=== PATIENT | male | born 1950 | race Caucasian/White ===

== ENCOUNTER 2023-01-20 14:21 | Outpatient (REF) | payer MEDICARE, SELFPAY ==
[2023-01-20 16:43] LABS: Hematocrit 46.6 % (42.0-52.0); Hemoglobin 15.1 g/dl (14.0-18.0); Mean Corpuscular HGB Conc 32.4 g/dl (31.0-36.0); Mean Corpuscular Hemoglobin 29.3 pg (27.0-33.0); Mean Corpuscular Volume 90.5 fL (80.0-98.0); Mean Platelet Volume 10.5 fL (9.4-12.4); Platelet Count 272 X10*3/uL (160-400); Red Blood Count 5.15 X10*6/uL (4.60-5.80); Red Cell Distribution Width 13.2 % (11.0-16.0); White Blood Count 7.6 X10*3/uL (4.8-10.8)
[2023-01-20 16:55] LABS: Appearance Urine Clear; Color Urine Yellow; Glucose Urine UA Negative (Negative); Leukocyte Esterase Urine Negative (Negative); Nitrite Urine Negative (Negative); PH 5.5 (5.0-9.0); Urine Blood Negative (Negative); Urine Ketones Negative (Negative); Urine Protein Trace mg/dL (Neg-Trace)
[2023-01-20 17:05] LABS: Alanine Aminotransferase 21 U/L (0-40); Albumin Level 4.2 g/dL (3.5-5.0); Alkaline Phosphatase 72 U/L (39-117); Anion Gap 12 (12-20); Aspartate Amino Transferase 17 U/L (5-37); Bilirubin Direct 0.2 mg/dL (0.0-0.5); Bilirubin Total 0.7 mg/dL (0.0-1.0); Blood Urea Nitrogen 21 mg/dL (9-16); Calcium 10.2 mg/dL (8.4-10.2); Carbon Dioxide 28 mmol/L (22-29); Chloride 106 mmol/L (96-108); Cholesterol 231 mg/dL; Estimated Glomerular Filt Rate > 60; Glucose Random 88 mg/dL (60-115); HDL Cholesterol 32 mg/dL; LDL Cholesterol Calculated 152 mg/dl; Potassium 4.5 mmol/L (3.3-5.1); Sodium 141 mmol/L (135-145); Total Protein 7.6 g/dL (6.5-8.0); Triglycerides 236 mg/dL
[2023-01-20 17:19] LABS: Thyroid Stimulating Hormone 2.05 uIU/mL (0.32-4.0)
== END 2023-01-20 14:22 | disposition home or self-care (01) ==
LOC: HO.HMGCLDS 14:21
PROVIDERS: Visit Provider Internal Medicine
DX: I10 Essential (primary) hypertension (principal)
CPT/HCPCS: 36415; 80048; 80061; 80076; 81003; 84443; 85027

== ENCOUNTER 2023-02-24 09:00 | Outpatient (AMB) | payer MEDICARE, SELFPAY ==
[2023-02-24 09:06] VITALS: BP 164/90; PULSE 65; RESP 12; TEMP 36.3; O2SAT 96; BMI 34.3
--- NOTE | 2023-02-24 09:06 | A.OFFPC_ITS ---
Vital Signs 02/24/23 09:06 02/24/23 09:30 Height 5 ft 9 in Weight 232 lb 4 oz BMI 34.3 BP 164/90 H 180/100 H Blood Pressure Location Lt brachial Rt brachial Position Sitting Left Lateral Respiration 12 Pulse 65 Pulse Source Pulse Oximeter Temp 97.4 F Temp Source Temporal Artery Scan Pulse Oximetry (%) 96 Oxygen Delivery Method Room Air Intake Visit Reasons: est care high blood pressure Per Dr V Intake Note: Patient needs a script for Olmesartan 25MG. 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 Required: No Accompanied by: Self / Same As Patient Allergies No Known Allergies Allergy (Verified 02/24/23 09:19) Medication List - Last Reconciled 02/24/23 by Piter Thurman CNP olmesartan-hydrochlorothiazide 40-25 mg 1 tab PO DAILY Tobacco use date assessed: 02/24/23 Fall risk assessment: No Falls in past year Last assessed Fall Risk: 02/24/23 Dental Screening Dental Screen Date: 02/24/23 Did you have a dental visit in the last 12 months?: No Did you have a dental problem in the last 6 months where you did not have access to dental care?: No Was dental information given to patient?: Yes HPI HPI Comments History of Present Illness Details 72-year-old male presents to establish care He states that the last time was seen by his previous PCP was 3 years ago He reports PMH significant for HTN He denies acute symptoms today. He was evaluated at the walk-in clinic and [place] on 01/20/2023 for hyperten julio. His blood pressure was 200/100. Labs were ordered. Enalapril was prescribed and was advised to follow-up with a PCP. He notes that Enapril has been ineffective even after he doubles the dose to 20 mg daily. He monitors his BP at home and his SBP have been between 160-180. He reports history of elevated SBP in the 160s. He states that he was on Olmesartan-HCTZ for approximately 4 years. 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 [facility] Medical History Essential hypertension Finger amputee Surgical History H/O hernia repair Social History (Updated 02/24/23 @ 09:16 by Courtney Williamson MA) Household Members: Family Housing: House Patient Tobacco Use Status: Never used Tobacco e-Cigarette/Vaping Use: Never Used service: No Current occupational status: retired Cognitive needs: No Hearing needs: No Vision needs: No Questionnaire PHQ-9 Over the last 2 weeks, how often have you been bothered by any of the following problems? 1. Little interest or pleasure in doing things: not at all 2. Feeling down, depressed, or hopeless: not at all 3. Trouble falling or staying asleep, or sleeping too much: not at all 4. Feeling tired or having little energy: several days 5. Poor appetite or overeating: not at all 6. Feeling bad about yourself - or that you are a failure or have let yourself or your family down: not at all 7. Trouble concentrating on things, such as reading the newspaper or watching television: not at all 8. Moving or speaking so slowly that other people could have noticed. Or the opposite - being so fidgety or restless that you have been moving around a lot more than usual: not at all 9. Thoughts that you would be better off or of hurting yourself in some way: not at all Total score: 1 Depression Screening Interpretation: Negative Source: Developed by Drs. Rick Capone, Kristen Sanchez, Jacky Miller and colleagues, with an educational latrice from [employer]. Thrive Questionnaire Date Thrive assessed: 02/24/23 I am a: Patient What is your living situation today?: I have a steady place to live Within the past 12 months, did the food you bought not last and you didn't have the money to get more?: Never true Within the past 12 months, did you worry whether your food would run out before you got money to buy more?: Never true Do you have trouble paying for medicines?: No Do you have trouble getting transportation to medical appointments?: No Do you have trouble paying your heating and electricity bill?: No Do you have trouble taking care of your child, family member or friend?: No Do you have trouble with day-to-day activities such as bathing, preparing meals, shopping, managing finances, etc.?: No Are you currently unemployed and looking for a job?: No Are you interested in more education?: No Please select the resources that you would like help with: None Currently or been in a relationship where the following occur: no concerns reported AUDIT C Alcohol Use Questionnaire (AUDIT-C) 1. How often do you have a drink containing alcohol?: Never 3. How often do you have six or more drinks on one occasion?: Never Total Score: 0 JOCELYNE-7 AMB Questionnaire JOCELYNE-7 Date JOCELYNE - 7 assessed: 02/24/23 Feeling nervous, anxious, or on edge: 0 = Not at all Not being able to stop or control worryin = Not at all Worrying too much about different things: 0 = Not at all Trouble relaxin = Not at all Being so restless that it is hard to sit still: 1 = Several days Becoming easily annoyed or irritable: 0 = Not at all Feeling afraid as if something awful might happen: 0 = Not at all Total JOCELYNE-7 score (0-4 normal; 5-9 mild; 10-14 moderate; 15-21 severe): 1 Source: Developed by Drs. Rick Capone, Kristen Sanchez, Jacky Miller and colleagues, with an educational latrice from [employer]. Review of Systems Const Details: Const Denies chills, Denies fatigue, Denies fever(s), Denies headache(s) and Denies weakness ENT Denies dizziness and Denies headache(s) Card Denies chest pain, Denies lightheadedness, Denies dyspnea and Denies other (Palpitations) Resp Denies cough, Denies dyspnea, Denies wheezing and Denies other ( shortness of breath) GI Denies abdominal pain, Denies melena, Denies hematochezia, Denies change in bowel habits, Denies dyspepsia and Denies nausea Denies hematuria and Denies dysuria Musc Denies abnormal gait, Denies myalgias, Denies arthralgias, Denies numbness and Denies tingling Skin/Breast Denies rash, Denies unusual bruising and Denies wounds Neuro Denies abnormal gait, Denies dizziness, Denies headache(s), Denies memory loss, Denies numbness, Denies Sensory deficit (Neuro), Denies tingling and Denies weakness Psych Denies anxiety and Denies depression, Denies memory loss Endo Denies fatigue Aller/Immun Denies wheezing Physical exam (Primary Care) Vital Signs: Last Vital Signs Temp 97.4 F 02/24/23 09:06 Pulse 65 02/24/23 09:06 Resp 12 02/24/23 09:06 BP 164/90 H 02/24/23 09:06 Pulse Ox 96 02/24/23 09:06 Oxygen Delivery Method Room Air 02/24/23 09:06 BMI result Body Mass Index 34.3 Tobacco/Smoking Status: Tobacco use Status Patient Tobacco Use Status Never used Tobacco 02/24/23 09:16 Depression Screening Interpretation: Negative Currently or been in a relationship where the following occur: no concerns reported Const Other: General: no acute distress and well developed Nutritional Appearance: well nourished Orientation/consciousness: patient oriented x3 HENMT Head: Yes normocephalic and Yes atraumatic Eyes General: appearance normal, both eyes and all related structures Pupils: Equal, round and reactive pupils present EOM: EOMs intact bilaterally Resp Effort & Inspection: normal respiratory effort Auscultation: clear to auscultation bilaterally Cardio Rate: regular rate Rhythm: regular rhythm Heart sounds: S1 normal heart sound present, S2 normal heart sound present, no gallops, no murmurs and no rubs GI Palpation (GI): No Abdominal aortic bruit present, Soft to palpation, nontender, No hepatosplenomegaly present and No Rebound tenderness present Auscultation: normal bowel sounds General: Yes no CVA tenderness Back/Spine/Pelvis Back: no CVA tenderness Cervical Spine: cervical ROM normal and No Cervical spine tenderness Thoracic/Lumbar Spine: thoraco-lumbar ROM normal, No pain with thoraco-lumbar ROM, No thoracic spinal tenderness and No lumbar spinal tenderness Extrem General: Yes normal to inspection, No edema and No calf tenderness Skin General: warm and dry. Normal skin color. Normal skin turgor Lesions: no lesions Rashes: no rashes Trauma: no lacerations or abrasions Wounds: no wounds Nails: normal Neuro General: patient oriented x3, gait normal and no focal neuro deficit Cranial nerves: Yes Equal, round and reactive pupils present Cognition (Neuro): normal cognition Gait exam (Neuro): Normal gait present Motor exam (neuro): 5/5 motor strength present throughout Sensory Exam: No Sensory deficit (Neuro) Psych Appearance: grossly normal Affect: normal affect Attitude: cooperative Thought process: Normal thought process present Assessment and Plan Assessment & Plan (1) Essential hypertension: Code(s): I10 - Essential (primary) hypertension Plan: His resting blood pressure is 180/100, above goal of less than 140/90. Olmesartan-hydrochlorothiazide ordered. Take as prescribed. Low-sodium diet and routine exercise encouraged Monitor blood pressure daily, record readings, and report blood pressure reading consistently above 140/90 Follow-up for a nurse visit for blood pressure check in 1 week Return in 2 weeks or sooner with concerns or symptoms Verbalized understanding and agreed with treatment plan. (2) Hyperlipidemia: Code(s): E78.5 - Hyperlipidemia, unspecified Plan: Recent blood work reviewed with the patient Total cholesterol, LDL, and triglycerides are elevated. HDL is low Decline medication therapy He notes he will adjust his diet and continue to eat garlic daily to control his cholesterol levels Advised to limit foods high in saturated fat and avoid foods high trans fat Routine exercise encouraged Follow-up with symptoms or concerns Verbalized understanding and agreed with treatment plan. (3) Laboratory tests ordered as part of a complete physical exam (CPE): Code(s): Z00.00 - Encounter for general adult medical examination without abnormal findings Plan: Fasting labs ordered as part of a complete physical exam. Advised to fast for at least 10 hours before getting labs drawn. May drink water Verbalized understanding and agreed with treatment plan. Orders: Orders Glucose Fasting Today I10 - Essential (primary) hypertension, Z00.00 - Encounter for general adult medical examination without abnormal findings PSA, Ultra Sensitive Today Z00.00 - Encounter for general adult medical examination without abnormal findings Medications: New olmesartan-hydrochlorothiazide 20-12.5 mg 1 tab PO DAILY 30 days 30 tabs 3RF Coding Level of Care Code Est Pt Level 4 (49033) Diagnoses Essential hypertension I10 Hyperlipidemia E78.5 Laboratory tests ordered as part of a complete physical exam (CPE) Z00.00 Time Spent (min) 35
[2023-02-24 09:30] VITALS: BP 180/100
== END 2023-02-24 09:55 | disposition home or self-care (01) ==
PROVIDERS: Visit Provider Nurse Practitioner Family
DX: I10 Essential (primary) hypertension (principal); E78.5 Hyperlipidemia, unspecified; Z00.00 Encounter for general adult medical examination without abnormal findings
CPT/HCPCS: 99214

== ENCOUNTER 2023-02-24 09:56 | Outpatient (REF) | payer MEDICARE, SELFPAY ==
[2023-02-24 12:00] LABS: Glucose Fasting 98 mg/dL (60-99)
[2023-03-03 17:03] LABS: PSA, Ultra Sensitive 2.53 ng/mL
== END 2023-02-24 09:57 | disposition home or self-care (01) ==
LOC: HO.WFDLDS 09:56
PROVIDERS: Visit Provider Nurse Practitioner Family
DX: Z00.00 Encounter for general adult medical examination without abnormal findings (principal); Z12.5 Encounter for screening for malignant neoplasm of prostate; I10 Essential (primary) hypertension
CPT/HCPCS: 36415; 82947; 84153

== ENCOUNTER 2023-03-10 07:47 | Outpatient (AMB) | payer MEDICARE, SELFPAY ==
--- NOTE | 2023-03-10 07:55 | A.OFFPC_ITS ---
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 Required: No Accompanied by: Self / Same As Patient Allergies No Known Allergies Allergy (Verified 03/10/23 08:40) Medication List - Last Reconciled 03/10/23 by Piter Thurman CNP olmesartan-hydrochlorothiazide 40-25 mg 1 tab PO DAILY 30 days Tobacco use date assessed: 02/24/23 Fall risk assessment: No Falls in past year Dental Screening Did you have a dental visit in the last 12 months?: No Did you have a dental problem in the last 6 months where you did not have access to dental care?: Yes Was dental information given to patient?: Patient declined HPI HPI Comments History of Present Illness Details 72-year-old male presents for hypertension follow-up. He is on olmesartan-hydrochlorothiazide which was increased to 40 does 25 a week ago. He notes he has been taking the medication as prescribed. He notes that he has not taken his medication this morning. He reports ringing of the the left ear whenever his blood pressure is elevated and reports current symptoms. He denies headache, dizziness, visual disturbances, chest pain, nausea. Review of his BP readings over the past 7 days revealed reading of 150s-160s/70s-90s [facility] Medical History Essential hypertension Finger amputee Surgical History H/O hernia repair Social History Household Members: Family Housing: House e-Cigarette/Vaping Use: Never Used service: No Current occupational status: retired Current occupational exposures/hazards: No Cognitive needs: No Hearing needs: Yes Vision needs: No Questionnaire PHQ-9 Over the last 2 weeks, how often have you been bothered by any of the following problems? 1. Little interest or pleasure in doing things: not at all 2. Feeling down, depressed, or hopeless: not at all 3. Trouble falling or staying asleep, or sleeping too much: not at all 4. Feeling tired or having little energy: not at all 5. Poor appetite or overeating: not at all 6. Feeling bad about yourself - or that you are a failure or have let yourself or your family down: not at all 7. Trouble concentrating on things, such as reading the newspaper or watching television: not at all 8. Moving or speaking so slowly that other people could have noticed. Or the opposite - being so fidgety or restless that you have been moving around a lot more than usual: not at all 9. Thoughts that you would be better off or of hurting yourself in some way: not at all Total score: 0 Depression Screening Interpretation: Negative Source: Developed by Drs. Rick Capone, Jacky Mahmood and colleagues, with an educational latrice from [employer]. Thrive Questionnaire Date Thrive assessed: 02/24/23 AUDIT C Alcohol Use Questionnaire (AUDIT-C) 1. How often do you have a drink containing alcohol?: Never Total Score: 0 Score Reviewed/Action Taken: No JOCELYNE-7 AMB Questionnaire JOCELYNE-7 Date JOCELYNE - 7 assessed: 02/24/23 Source: Developed by Drs. Rick Capone, Kristen Sanchez, Jacky Miller and colleagues, with an educational latrice from [employer]. Review of Systems Const Details: Const Denies chills, Denies fatigue, Denies fever(s), Denies headache(s) and Denies weakness ENT Denies dizziness and Denies headache(s) Card Denies chest pain, Denies lightheadedness, Denies dyspnea and Denies other (Palpitations) Resp Denies cough, Denies dyspnea, Denies wheezing and Denies other ( shortness of breath) GI Denies abdominal pain, Denies melena, Denies hematochezia, Denies change in bowel habits, Denies dyspepsia and Denies nausea Denies hematuria and Denies dysuria Musc Denies abnormal gait, Denies myalgias, Denies arthralgias, Denies numbness and Denies tingling Skin/Breast Denies rash, Denies unusual bruising and Denies wounds Neuro Denies abnormal gait, Denies dizziness, Denies headache(s), Denies memory loss, Denies numbness, Denies Sensory deficit (Neuro), Denies tingling and Denies weakness Psych Denies anxiety and Denies depression Endo Denies fatigue Aller/Immun Denies wheezing Physical exam (Primary Care) Vital Signs: Last Vital Signs Temp 96.6 F L 03/10/23 08:06 Pulse 70 03/10/23 08:52 Resp 16 03/10/23 08:06 BP 170/80 H 03/10/23 08:52 Pulse Ox 96 03/10/23 08:06 Oxygen Delivery Method Room Air 03/10/23 08:06 Tobacco/Smoking Status: Tobacco use Status Tobacco use date assessed 02/24/23 03/10/23 07:57 Patient Tobacco Use Status 03/10/23 08:20 e-Cigarette/Vaping Use Never Used 03/10/23 07:57 PHQ-9: PHQ-9 Score PHQ-9: Total score 0 03/11/23 09:47 Depression Screening Interpretation: Negative Thrive Assessment: Date of Thrive Assessment Date Thrive assessed 02/24/23 03/10/23 07:57 Const Other: General: no acute distress and well developed Nutritional Appearance: well nourished Orientation/consciousness: patient oriented x3 HENMT Head: Yes normocephalic and Yes atraumatic Eyes General: appearance normal, both eyes and all related structures Pupils: Equal, round and reactive pupils present EOM: EOMs intact bilaterally Resp Effort & Inspection: normal respiratory effort Auscultation: clear to auscultation bilaterally Cardio Rate: regular rate Rhythm: Irregularly irregular rhythm Heart sounds: S1 normal heart sound present, S2 normal heart sound present, no gallops, no murmurs and no rubs GI Palpation (GI): No Abdominal aortic bruit present, Soft to palpation, nontender, No hepatosplenomegaly present and No Rebound tenderness present Auscultation: normal bowel sounds General: Yes no CVA tenderness Back/Spine/Pelvis Back: no CVA tenderness Cervical Spine: cervical ROM normal and No Cervical spine tenderness Thoracic/Lumbar Spine: thoraco-lumbar ROM normal, No pain with thoraco-lumbar ROM, No thoracic spinal tenderness and No lumbar spinal tenderness Extrem General: Yes normal to inspection, No edema and No calf tenderness Skin General: warm and dry. Normal skin color. Normal skin turgor Lesions: no lesions Rashes: no rashes Trauma: no lacerations or abrasions Wounds: no wounds Nails: normal Neuro General: patient oriented x3, gait normal and CN's no focal neuro deficit Cranial nerves: Yes Equal, round and reactive pupils present Cognition (Neuro): normal cognition Gait exam (Neuro): Normal gait present Sensory Exam: No Sensory deficit (Neuro) Psych Affect: normal affect Assessment and Plan Assessment & Plan (1) Essential hypertension: Code(s): I10 - Essential (primary) hypertension Plan: Initial BP was 202/98 Resting BP is 170/80 Heart rate irregularly irregular quality assurance monitor final is currently nonfunctional Patient advised to go to the main hospital in [place] to get EKG done He verbalized understanding and agreed with the plan. Orders: Orders ECG 12 lead EKG 03/10/23 I10 - Essential (primary) hypertension Coding Level of Care Code Est Pt Level 3 (51366) Diagnoses Essential hypertension I10 Time Spent (min) 25
[2023-03-10 08:06] VITALS: BP 208/98; PULSE 46; RESP 16; TEMP 35.9; O2SAT 96
[2023-03-10 08:22] VITALS: BP 202/98
[2023-03-10 08:52] VITALS: BP 170/80; PULSE 70
== END 2023-03-10 10:16 | disposition home or self-care (01) ==
PROVIDERS: Visit Provider Nurse Practitioner Family
DX: I10 Essential (primary) hypertension (principal)
CPT/HCPCS: 99213

== ENCOUNTER 2023-03-10 11:43 | Emergency (ER) | payer MEDICARE, SELFPAY ==
--- NOTE | ~2023-03-10 | XR_ITS ---
EXAMINATION: XR CHEST CLINICAL INFORMATION: Shortness of breath, left-sided chest pain. COMPARISON: None available. TECHNIQUE: 2 views of the chest were obtained. FINDINGS: No significant abnormality is noted involving the heart, lungs, mediastinum, bony thorax or soft tissues. XR/XR chest 2V IMPRESSION: No acute cardiopulmonary process.
--- NOTE | 2023-03-10 11:44 | ECG_ITS ---
Test Reason : irregular heart beat Blood Pressure : / mmHG Vent. Rate : 071 BPM Atrial Rate : 071 BPM P-R Int : 166 ms QRS Dur : 102 ms QT Int : 404 ms P-R-T Axes : 037 -19 153 degrees QTc Int : 439 ms Sinus rhythm with Premature atrial complexes Left ventricular hypertrophy with repolarization abnormality ( R in aVL , Billy product ) Abnormal ECG No previous ECGs available Referred By: Brittnee Watkins Electronically Signed By:JOSE CASTRO
[2023-03-10 12:24] VITALS: BP 168/73; PULSE 47; RESP 18; TEMP 36.4; O2SAT 93; BMI 34.9
--- NOTE | 2023-03-10 12:27 | ED_ITS ---
HPI - Arrhythmia/Palpitations General Chief Complaint: Arrhythmia/Palpitations Stated Complaint: Irregular heartbeat Time Seen by Provider: 03/10/23 14:07 Source: patient Mode of arrival: ambulatory History of Present Illness HPI narrative: 72-year-old male presents with palpitations, no history of atrial fibrillation and states that 2 weeks ago he experienced chest pressure that is completely resolved today, he was in the office of his primary care provider who noted what was reported as an irregular rhythm. Patient denies any shortness of breath, headache, dizziness, diaphoresis, nausea, denies any speech changes or gait instability and currently denies any chest pain. Patient states that he took his medication today and that his blood pressure has been elevated and endorses a systolic of over 200. Related Data Previous Rx's Medication Instructions Recorded olmesartan 40 1 tab PO DAILY 30 days #30 tabs 03/03/23 mg-hydrochlorothiazide 25 mg tablet Allergies Allergy/AdvReac Type Severity Reaction Status Date / Time No Known Allergies Allergy Verified 03/10/23 08:40 Review of Systems Review of Systems: Pertinent positives and negatives as stated in HPI [facility] Past Medical History Source: nursing notes reviewed Medical History Essential hypertension Finger amputee Surgical History H/O hernia repair Social History Social History Household Members: Family Housing: House Smoked in Last 30 Days: No e-Cigarette/Vaping Use: Never Used Use of substances other than those prescribed or required for medical reasons: No Advance Directives: Yes Advance Directives Information Provided: Yes Advance Directives on File: No service: No Current occupational status: retired Current occupational exposures/hazards: No Cognitive needs: No Hearing needs: Yes Vision needs: No Physical Exam Vital Signs: Vital Signs: Last Vital Signs Temp 98.3 F 03/10/23 18:14 Pulse 73 03/10/23 18:14 Resp 17 03/10/23 18:14 BP 168/83 H 03/10/23 18:14 Pulse Ox 95 03/10/23 18:14 O2 Del Method Room Air 03/10/23 18:14 BMI result Body Mass Index 34.9 VITAL SIGNS: Reviewed. GENERAL: Well developed, well nourished, in no acute distress. HEAD: Normocephalic/atraumatic EYES: PERRLA, EOMI EARS: Ext canals without abnormality NOSE: Nares patent bilateral OROPHARYNX: no oral lesions noted, posterior pharynx clear NECK: Supple, no adenopathy LUNGS: Bibasilar rales, no tachypnea, good inspiratory effort. SpO2<93> CARDIOVASCULAR: Regular rate and rhythm without noted murmurs, no JVD or lower extremity edema. ABDOMEN: Soft, non-tender, non-distended with bowel sounds. MUSCULOSKELETAL: No tenderness, deformities, or effusions noted on gross inspection. EXTREMITIES: No cyanosis, clubbing or edema. SKIN: Inspection of the skin reveals no rashes NEUROLOGIC: Alert and oriented x 4. Strength and sensation to light touch were grossly intact x 4. Course Course Course Narrative: RME - 72 yo male with history of HTN, HLD who presents to the ER for evaluation intermittent left sided chest tightness for the last 2 weeks along with elevated HR into the 140s and BP 240s systolic at home. compliant with 2 BP meds at home. Feels palpitations and skipped beats. No etoh or drugs. Plan: Medications Administered Discontinued Medications Generic Name Dose Route Start Last Admin Trade Name Freq PRN Reason Stop Dose Admin Furosemide 20 mg 03/10/23 15:33 03/10/23 15:41 Furosemide 20 Mg/2 Ml Vial IVPUSH 03/10/23 15:34 20 mg ONCE ONE Administration Protocol Hydralazine HCl 5 mg 03/10/23 14:20 03/10/23 15:23 Hydralazine Hcl 20 Mg/Ml Vial IVPUSH 03/10/23 14:21 5 mg ONCE ONE Administration Protocol Medical Decision Making Medical Decision Making MDM Narrative: 72-year-old male with history and clinical presentation, DDX: New onset atrial fibrillation, CHF, pneumonia, ACS, hypertensive crisis. Patient is otherwise completely asymptomatic for any neurologic symptoms and denies any chest pain or palpitations or chest tightness. I reviewed all investigations and hematologic indices are without leukocytosis or left shift 10 there is no evidence of anemia or thrombocytopenia. Chemistry indices demonstrate CKD without electrolyte abnormalities detectable troponins that are flat on serial examination, BNP is also elevated both of these together I suspect this secondary to significant LVH in conjunction with EKG findings. I suspect the patient needs to have an adjustment on his blood pressure medication follow-up with cardiology for stress testing. He is otherwise discharged home and informed to follow-up with his primary care provider by calling the office 1st thing in the morning and requesting blood pressure medication adjustment. Differential Diagnosis Differential Diagnoses: The differential diagnosis associated with the presentation includes Please see the discussion above Admission/Observation Consideration of admission/observation: Escalation of care including admission/observation considered Please see discussion above Lab Data MDM Lab Attestation statement: I reviewed the patient's lab results. Please see discussion above 03/10/23 12:39 03/10/23 12:39 Labs: Lab Results 03/10/23 03/10/23 03/10/23 Range/Units 12:39 12:39 12:39 WBC 6.0 (4.8-10.8) X10*3/uL RBC 5.38 (4.60-5.80) X10*6/uL Hgb 15.8 (14.0-18.0) g/dl Hct 47.1 (42.0-52.0) % MCV 87.5 (80.0-98.0) fL MCH 29.4 (27.0-33.0) pg MCHC 33.5 (31.0-36.0) g/dl RDW 13.4 (11.0-16.0) % Plt Count 224 (160-400) X10*3/uL MPV 9.8 (9.4-12.4) fL Immature Gran % (Auto) 0.2 (0.0-0.4) % Neut % (Auto) 71.6 (45-73) % Lymph % (Auto) 17.1 L (20-40) % [place] % (Auto) 8.3 (2-11) % Eos % (Auto) 2.3 (0-4) % Baso % (Auto) 0.5 (0-2) % Lymph # (Auto) 1.0 L (1.2-4.9) X10*3/uL [place] # (Auto) 0.5 (0.1-1.2) X10*3/uL Eos # (Auto) 0.1 (0.0-0.4) X10*3/uL Baso # (Auto) 0.0 (0.0-0.2) X10*3/uL Abs Immat Gran (auto) 0.01 (0.00-0.03) X10*3/uL Absolute Neuts (auto) 4.3 (2.0-8.3) x10*3/uL Absolute Nucleated RBC 0.000 (0.0-0.012) X10*3/uL Nucleated RBC % (auto) 0.0 (0.0-0.2) /100WBC Sodium 141 (135-145) mmol/L Potassium 4.1 (3.3-5.1) mmol/L Chloride 106 (96-108) mmol/L Carbon Dioxide 23 (22-29) mmol/L Anion Gap 16 (12-20) BUN 22 H (9-16) mg/dL Creatinine 1.24 (0.5-1.4) mg/dL Estim Creat Clear Calc 67.9 Estimated GFR 57 Random Glucose 116 H (60-115) mg/dL Calcium 10.0 (8.4-10.2) mg/dL Magnesium 2.2 (1.6-2.6) mg/dL Total Bilirubin 0.7 (0.0-1.0) mg/dL Direct Bilirubin 0.2 (0.0-0.5) mg/dL AST 16 (5-37) U/L ALT 17 (0-40) U/L Alkaline Phosphatase 70 (39-117) U/L Troponin I High Sens 19.1 (<3.5-35.0) ng/L B-Natriuretic Peptide (<100) pg/mL Total Protein 7.4 (6.5-8.0) g/dL Albumin 4.1 (3.5-5.0) g/dL TSH (0.32-4.0) uIU/mL 03/10/23 03/10/23 03/10/23 Range/Units 12:39 12:39 16:09 WBC (4.8-10.8) X10*3/uL RBC (4.60-5.80) X10*6/uL Hgb (14.0-18.0) g/dl Hct (42.0-52.0) % MCV (80.0-98.0) fL MCH (27.0-33.0) pg MCHC (31.0-36.0) g/dl RDW (11.0-16.0) % Plt Count (160-400) X10*3/uL MPV (9.4-12.4) fL Immature Gran % (Auto) (0.0-0.4) % Neut % (Auto) (45-73) % Lymph % (Auto) (20-40) % [place] % (Auto) (2-11) % Eos % (Auto) (0-4) % Baso % (Auto) (0-2) % Lymph # (Auto) (1.2-4.9) X10*3/uL [place] # (Auto) (0.1-1.2) X10*3/uL Eos # (Auto) (0.0-0.4) X10*3/uL Baso # (Auto) (0.0-0.2) X10*3/uL Abs Immat Gran (auto) (0.00-0.03) X10*3/uL Absolute Neuts (auto) (2.0-8.3) x10*3/uL Absolute Nucleated RBC (0.0-0.012) X10*3/uL Nucleated RBC % (auto) (0.0-0.2) /100WBC Sodium (135-145) mmol/L Potassium (3.3-5.1) mmol/L Chloride (96-108) mmol/L Carbon Dioxide (22-29) mmol/L Anion Gap (12-20) BUN (9-16) mg/dL Creatinine (0.5-1.4) mg/dL Estim Creat Clear Calc Estimated GFR Random Glucose (60-115) mg/dL Calcium (8.4-10.2) mg/dL Magnesium (1.6-2.6) mg/dL Total Bilirubin (0.0-1.0) mg/dL Direct Bilirubin (0.0-0.5) mg/dL AST (5-37) U/L ALT (0-40) U/L Alkaline Phosphatase (39-117) U/L Troponin I High Sens 21.1 (<3.5-35.0) ng/L B-Natriuretic Peptide 246 H (<100) pg/mL Total Protein (6.5-8.0) g/dL Albumin (3.5-5.0) g/dL TSH 1.42 (0.32-4.0) uIU/mL 03/10/23 Range/Units 18:19 WBC (4.8-10.8) X10*3/uL RBC (4.60-5.80) X10*6/uL Hgb (14.0-18.0) g/dl Hct (42.0-52.0) % MCV (80.0-98.0) fL MCH (27.0-33.0) pg MCHC (31.0-36.0) g/dl RDW (11.0-16.0) % Plt Count (160-400) X10*3/uL MPV (9.4-12.4) fL Immature Gran % (Auto) (0.0-0.4) % Neut % (Auto) (45-73) % Lymph % (Auto) (20-40) % [place] % (Auto) (2-11) % Eos % (Auto) (0-4) % Baso % (Auto) (0-2) % Lymph # (Auto) (1.2-4.9) X10*3/uL [place] # (Auto) (0.1-1.2) X10*3/uL Eos # (Auto) (0.0-0.4) X10*3/uL Baso # (Auto) (0.0-0.2) X10*3/uL Abs Immat Gran (auto) (0.00-0.03) X10*3/uL Absolute Neuts (auto) (2.0-8.3) x10*3/uL Absolute Nucleated RBC (0.0-0.012) X10*3/uL Nucleated RBC % (auto) (0.0-0.2) /100WBC Sodium (135-145) mmol/L Potassium (3.3-5.1) mmol/L Chloride (96-108) mmol/L Carbon Dioxide (22-29) mmol/L Anion Gap (12-20) BUN (9-16) mg/dL Creatinine (0.5-1.4) mg/dL Estim Creat Clear Calc Estimated GFR Random Glucose (60-115) mg/dL Calcium (8.4-10.2) mg/dL Magnesium (1.6-2.6) mg/dL Total Bilirubin (0.0-1.0) mg/dL Direct Bilirubin (0.0-0.5) mg/dL AST (5-37) U/L ALT (0-40) U/L Alkaline Phosphatase (39-117) U/L Troponin I High Sens (<3.5-35.0) ng/L B-Natriuretic Peptide 232 H (<100) pg/mL Total Protein (6.5-8.0) g/dL Albumin (3.5-5.0) g/dL TSH (0.32-4.0) uIU/mL Independent Interpretation I performed an independent interpretation of an: EKG Interpretation: Sinus rhythm with PACs, HR-71, no STEMI, but significant repolarization abnormality likely secondary to hypertension but there is no EKG for comparison. Radiology Impression Discussion of test interpretation with radiology: I have reviewed the radiologist's reading. Radiologist Impression: No pneumonia, otherwise my interpretation is in agreement with radiology's impression. External Record Review External record reviewed: Outpatient record and Prior outpatient labs Chronic Conditions Patient?s care impacted by: Hypertension Critical Care Time Critical Care Time Critical Care Time: Yes Total Critical Care Time: 30 Attestation: I personally attest to this time spent taking care of the patient. Discharge Plan Discharge Clinical Impression: Essential hypertension Patient Disposition: Home, Self-Care Instructions: DASH Eating Plan (ED), Low-Sodium Diet (ED), Hypertension (ED) Additional Instructions: 1. Resume all home medications as prescribed. 2. Please call the office of your primary care provider in the morning and let them know that you may need blood pressure medication adjustment. 3. I have provided you with a referral for Cardiology please call the office in the morning to set up an appointment for re-evaluation and testing. Return to the ER for any worsening symptoms. Prescriptions: No Action olmesartan-hydrochlorothiazide 40-25 mg tablet 1 tab PO DAILY 30 Days Qty: 30 3RF Referrals: Jm Fraser MD [Physician] - Piter Thurman CNP [Nurse Practitioner] -
[2023-03-10 12:45] LABS: MANUAL DIFF FLAG NO
[2023-03-10 12:47] LABS: Basophils Percent Auto 0.5 % (0-2); Eosinophils Absolute Auto 0.1 X10*3/uL (0.0-0.4); Eosinophils Percent Auto 2.3 % (0-4); Hematocrit 47.1 % (42.0-52.0); Hemoglobin 15.8 g/dl (14.0-18.0); Imm Gran Abs Auto 0.01 X10*3/uL (0.00-0.03); Imm Gran Pct Auto 0.2 % (0.0-0.4); Lymphocytes Percent Auto 17.1 % (20-40); Mean Corpuscular HGB Conc 33.5 g/dl (31.0-36.0); Mean Corpuscular Hemoglobin 29.4 pg (27.0-33.0); Mean Corpuscular Volume 87.5 fL (80.0-98.0); Mean Platelet Volume 9.8 fL (9.4-12.4); Monocytes Absolute Auto 0.5 X10*3/uL (0.1-1.2); Monocytes Percent Auto 8.3 % (2-11); Neutrophils Absolute Auto 4.3 x10*3/uL (2.0-8.3); Neutrophils Percent Auto 71.6 % (45-73); Platelet Count 224 X10*3/uL (160-400); Red Blood Count 5.38 X10*6/uL (4.60-5.80); Red Cell Distribution Width 13.4 % (11.0-16.0)
[2023-03-10 13:04] LABS: Alanine Aminotransferase 17 U/L (0-40); Albumin Level 4.1 g/dL (3.5-5.0); Alkaline Phosphatase 70 U/L (39-117); Anion Gap 16 (12-20); Aspartate Amino Transferase 16 U/L (5-37); Bilirubin Direct 0.2 mg/dL (0.0-0.5); Bilirubin Total 0.7 mg/dL (0.0-1.0); Blood Urea Nitrogen 22 mg/dL (9-16); Carbon Dioxide 23 mmol/L (22-29); Chloride 106 mmol/L (96-108); Creatinine Clr Calc Pharmacy 67.9; Estimated Glomerular Filt Rate 57; Glucose Random 116 mg/dL (60-115); Magnesium 2.2 mg/dL (1.6-2.6); Potassium 4.1 mmol/L (3.3-5.1); Sodium 141 mmol/L (135-145); Total Protein 7.4 g/dL (6.5-8.0)
[2023-03-10 13:11] LABS: Troponin-I High Sensitivity 19.1 ng/L (<3.5-35.0)
[2023-03-10 13:18] LABS: B Type Natriuretic Peptide 246 pg/mL (<100)
[2023-03-10 13:25] LABS: TSH reflex Free T4 1.42 uIU/mL (0.32-4.0)
[2023-03-10] MEDS: hydrALAZINE HCl 20 MG/ML VIAL 5 MG IVPUSH (15:23)
[2023-03-10] MEDS: Furosemide 20 MG/2 ML VIAL IVPUSH (15:41)
[2023-03-10 16:25] VITALS: BP 155/76; PULSE 77; RESP 18; TEMP 36.4; O2SAT 93
[2023-03-10 16:40] LABS: Troponin-I High Sensitivity 21.1 ng/L (<3.5-35.0)
[2023-03-10 18:14] VITALS: BP 168/83; PULSE 73; RESP 17; TEMP 36.8; O2SAT 95
[2023-03-10 18:44] LABS: B Type Natriuretic Peptide 232 pg/mL (<100)
[2023-03-10 19:16] VITALS: BP 143/69
== END 2023-03-10 19:15 | disposition home or self-care (01) ==
PROVIDERS: Physician Assistant; Emergency Provider Student in an Organized Health Care Education/Training Program
DX: I10 Essential (primary) hypertension (principal); Z79.899 Other long term (current) drug therapy
CPT/HCPCS: 36415; 71046; 80048; 80076; 83735; 83880; 84443; 84484; 85025; 93005; 96374; 96375; 99284; 99285; J1940

== ENCOUNTER → 2023-03-10 11:44 | Outpatient (BNV) | payer MEDICARE, SELFPAY | PROVIDERS: Emergency Provider Student in an Organized Health Care Education/Training Program; Visit Provider Internal Medicine | DX: I49.1 Atrial premature depolarization (principal); R94.31 Abnormal electrocardiogram [ECG] [EKG] | CPT/HCPCS: 93010 ==

== ENCOUNTER 2023-03-24 09:48 | Outpatient (AMB) | payer MEDICARE, SELFPAY ==
[2023-03-24 10:06] VITALS: BP 150/78; PULSE 62; RESP 12; TEMP 36.6; O2SAT 96; BMI 33.5
--- NOTE | 2023-03-24 10:06 | A.OFFPC_ITS ---
Vital Signs 03/24/23 10:06 Height 5 ft 10 in Weight 233 lb 4 oz BMI 33.5 BP 150/78 H Blood Pressure Location Lt brachial Position Sitting Respiration 12 Pulse 62 Pulse Source Pulse Oximeter Temp 97.9 F Temp Source Temporal Artery Scan Pulse Oximetry (%) 96 Oxygen Delivery Method Room Air Intake Visit Reasons: f/u HTN Intake Note: Patient states that since he has been taking his blood pressure pills he has been having either numbing or tingling sensations on his skin all over for a couple minutes. Patient also states that he has been itching as well. Route Specialist Required: No Accompanied by: Self / Same As Patient Allergies No Known Allergies Allergy (Verified 03/24/23 10:48) Medication List - Last Reconciled 03/24/23 by Piter Thurman CNP olmesartan-hydrochlorothiazide 40-25 mg 1 tab PO DAILY 30 days Tobacco use date assessed: 02/24/23 Fall risk assessment: No Falls in past year Last assessed Fall Risk: 03/24/23 Dental Screening Dental Screen Date: 03/24/23 Did you have a dental visit in the last 12 months?: No Did you have a dental problem in the last 6 months where you did not have access to dental care?: No Was dental information given to patient?: Patient has dentist HPI HPI Comments History of Present Illness Details 72-year-old male presents for hypertension follow-up.He is on olmesartan-hydrochlorothiazide which was increased to 40 does 25 a week ago.? He notes he has been taking the medication as prescribed. He admits to maintaining a low sodium diet. He denies headache, dizziness, visual disturbances, chest pain, nausea. He notes his home SBP readings are between 140-160. No acute symptoms at this time. [facility] Medical History Essential hypertension Finger amputee Surgical History (Updated 03/24/23 @ 10:14 by Courtney Williamson MA) H/O hernia repair History of amputation of finger of both hands Social History Household Members: Family Housing: House Patient Tobacco Use Status: Never used Tobacco e-Cigarette/Vaping Use: Never Used service: No Current occupational status: retired Current occupational exposures/hazards: No Cognitive needs: No Hearing needs: No Vision needs: No Questionnaire Thrive Questionnaire Date Thrive assessed: 02/24/23 JOCELYNE-7 AMB Questionnaire JOCELYNE-7 Date JOCELYNE - 7 assessed: 02/24/23 Source: Developed by Drs. Rick Capone, Kristen Sanchez, Jacky Miller and colleagues, with an educational latrice from [employer]. Review of Systems Const Details: Const Denies chills, Denies fatigue, Denies fever(s), Denies headache(s) and Denies weakness ENT Denies dizziness and Denies headache(s) Card Denies chest pain, Denies lightheadedness, Denies dyspnea and Denies other (Palpitations) Resp Denies cough, Denies dyspnea, Denies wheezing and Denies other ( shortness of breath) GI Denies abdominal pain, Denies melena, Denies hematochezia, Denies change in bowel habits, Denies dyspepsia and Denies nausea Denies hematuria and Denies dysuria Musc Denies abnormal gait, Denies myalgias, Denies arthralgias, Denies numbness and Denies tingling Skin/Breast Denies rash, Denies unusual bruising and Denies wounds Neuro Denies abnormal gait, Denies dizziness, Denies headache(s), Denies memory loss, Denies numbness, Denies Sensory deficit (Neuro), Denies tingling and Denies weakness Psych Denies anxiety, Denies depression, Denies memory loss Endo Denies cold intolerance, Denies fatigue, Denies heat intolerance, Denies polydipsia and Denies polyuria Aller/Immun Denies wheezing Physical exam (Primary Care) Vital Signs: Last Vital Signs Temp 97.9 F 03/24/23 10:06 Pulse 62 03/24/23 10:06 Resp 12 03/24/23 10:06 BP 150/78 H 03/24/23 10:06 Pulse Ox 96 03/24/23 10:06 Oxygen Delivery Method Room Air 03/24/23 10:06 BMI result Body Mass Index 33.5 Tobacco/Smoking Status: Tobacco use Status Tobacco use date assessed 02/24/23 03/24/23 10:14 Patient Tobacco Use Status Never used Tobacco 03/24/23 10:14 e-Cigarette/Vaping Use Never Used 03/24/23 10:14 Thrive Assessment: Date of Thrive Assessment Date Thrive assessed 02/24/23 03/24/23 10:14 Const Other: General: no acute distress and well developed Nutritional Appearance: well nourished Orientation/consciousness: patient oriented x3 [facility] Head: Yes normocephalic and Yes atraumatic Eyes General: appearance normal, both eyes and all related structures Pupils: Equal, round and reactive pupils present EOM: EOMs intact bilaterally Resp Effort & Inspection: normal respiratory effort Auscultation: clear to auscultation bilaterally Cardio Rate: regular rate Rhythm: regular rhythm Heart sounds: S1 normal heart sound present, S2 normal heart sound present, no gallops, no murmurs and no rubs GI Palpation (GI): No Abdominal aortic bruit present, Soft to palpation, nontender, No hepatosplenomegaly present and No Rebound tenderness present Auscultation: normal bowel sounds General: Yes no CVA tenderness Back/Spine/Pelvis Back: no CVA tenderness Cervical Spine: cervical ROM normal and No Cervical spine tenderness Thoracic/Lumbar Spine: thoraco-lumbar ROM normal, No pain with thoraco-lumbar ROM, No thoracic spinal tenderness and No lumbar spinal tenderness Extrem General: Yes normal to inspection, No edema and No calf tenderness Skin General: warm and dry. Normal skin color. Normal skin turgor Lesions: no lesions Rashes: no rashes Trauma: no lacerations or abrasions Wounds: no wounds Nails: normal Neuro General: patient oriented x3, gait normal and no focal neuro deficit Cranial nerves: Yes Equal, round and reactive pupils present Cognition (Neuro): normal cognition Gait exam (Neuro): Normal gait present Sensory Exam: No Sensory deficit (Neuro) Psych Appearance: grossly normal Affect: normal affect Attitude: cooperative Thought process: Normal thought process present Assessment and Plan Assessment & Plan (1) Essential hypertension: Code(s): I10 - Essential (primary) hypertension Plan: His blood pressure is 150/78, above goal of 140/90 Amlodipine ordered. Take as prescribed Continue to take olmesartan-hydrochlorothiazide as prescribed Follow-up in 1 week Return sooner with symptoms or concerns Verbalized understanding and agreed with treatment plan. Medications: New amlodipine 2.5 mg PO DAILY 30 days 30 tabs 3RF Coding Level of Care Code Est Pt Level 3 (48646) Diagnoses Essential hypertension I10 Time Spent (min) 25
== END 2023-03-24 13:35 | disposition home or self-care (01) ==
PROVIDERS: Visit Provider Nurse Practitioner Family
DX: I10 Essential (primary) hypertension (principal)
CPT/HCPCS: 99213

== ENCOUNTER 2023-03-31 10:18 | Outpatient (AMB) | payer MEDICARE, SELFPAY ==
[2023-03-31 10:26] VITALS: BP 148/90; PULSE 64; RESP 12; TEMP 36.6; O2SAT 97; BMI 33.6
--- NOTE | 2023-03-31 10:26 | A.OFFPC_ITS ---
Vital Signs 03/31/23 10:26 Height 5 ft 10 in Weight 234 lb 8 oz BMI 33.6 BP 148/90 H Blood Pressure Location Lt brachial Position Sitting Respiration 12 Pulse 64 Pulse Source Pulse Oximeter Temp 97.8 F Temp Source Temporal Artery Scan Pulse Oximetry (%) 97 Oxygen Delivery Method Room Air Intake Visit Reasons: follow up HTN Intake Note: Patient states that he stopped taking the Olmesartan due to it causing patient having headaches in the back of his head. Patient states that once he stopped taking the Olmesartan that the headaches in back of his head stopped. 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 He is on olmesartan-hydrochlorothiazide 40-25 mg daily and amlodipine 2.5 mg daily. Amlodipine was added to his treatment regimen a week ago. He notes he was taking his medications as prescribed until 3 days ago when he experienced a headache and started taking amlodipine 5 mg daily and have not been taking olmesartan-hydrochlorothiazide. He notes he has not taken his medications this morning; he usually takes them in the afternoon. He admits to maintaining a low sodium diet. He denies headache, dizziness, visual disturbances, chest pain, nausea. He notes his home SBP readings are between 150 - 160. No acute symptoms at this time. He notes he has an appointment to schedule with [facility] cardiology next week. He was evaluated at [facility] ED on 03/10/2023 for irregular heart rhythm. Review of ED documentation: 72-year-old male with history and clinical presentation, DDX:? New onset atrial fibrillation, CHF, pneumonia, ACS, hypertensive crisis.? Patient is otherwise completely asymptomatic for any neurologic symptoms and denies any chest pain or palpitations or chest tightness. I reviewed all investigations and hematologic indices are without leukocytosis or left shift 10 there is no evidence of anemia or thrombocytopenia.? Chemistry indices demonstrate CKD without electrolyte abnormalities detectable troponins that are flat on serial examination, BNP is also elevated both of these together I suspect this secondary to significant LVH in conjunction with EKG findings.? I suspect the patient needs to have an adjustment on his blood pressure medication follow-up with cardiology for stress testing.? He is otherwise discharged home and informed to follow-up with his primary care provider by calling the office 1st thing in the morning and requesting blood pressure medication adjustment. EKG revealed Sinus rhythm with PACs, HR-71, no STEMI, but significant repolarization abnormality likely secondary to hypertension but there is no EKG for comparison. She was referred to [facility] Cardiology. [facility] Medical History Essential hypertension Finger amputee Surgical History (Updated 03/24/23 @ 10:14 by Courtney Williamson MA) H/O hernia repair History of amputation of finger of both hands Social History Household Members: Family Housing: House Patient Tobacco Use Status: Never used Tobacco e-Cigarette/Vaping Use: Never Used service: No Current occupational status: retired Current occupational exposures/hazards: No Cognitive needs: No Hearing needs: No Vision needs: No Questionnaire Thrive Questionnaire Date Thrive assessed: 02/24/23 JOCELYNE-7 AMB Questionnaire JOCELYNE-7 Date JOCELYNE - 7 assessed: 02/24/23 Source: Developed by Drs. Rick Capone, Kristen Sanchez, Jacky Miller and colleagues, with an educational latrice from [employer]. Review of Systems Const Details: Const Denies chills, Denies fatigue, Denies fever(s), Denies headache(s) and Denies weakness ENT Denies dizziness and Denies headache(s) Card Denies chest pain, Denies lightheadedness, Denies dyspnea and Denies other (Palpitations) Resp Denies cough, Denies dyspnea, Denies wheezing and Denies other ( shortness of breath) GI Denies abdominal pain, Denies melena, Denies hematochezia, Denies change in bowel habits, Denies dyspepsia and Denies nausea Denies hematuria and Denies dysuria Musc Denies abnormal gait, Denies myalgias, Denies arthralgias, Denies numbness and Denies tingling Skin/Breast Denies rash, Denies unusual bruising and Denies wounds Neuro Denies abnormal gait, Denies dizziness, Denies headache(s), Denies memory loss, Denies numbness, Denies Sensory deficit (Neuro), Denies tingling and Denies weakness Psych Denies anxiety, Denies depression, Denies memory loss Endo Denies cold intolerance, Denies fatigue, Denies heat intolerance, Denies polydipsia and Denies polyuria Aller/Immun Denies wheezing Physical exam (Primary Care) Vital Signs: Last Vital Signs Temp 97.8 F 03/31/23 10:26 Pulse 64 03/31/23 10:26 Resp 12 03/31/23 10:26 BP 148/90 H 03/31/23 10:26 Pulse Ox 97 03/31/23 10:26 Oxygen Delivery Method Room Air 03/31/23 10:26 BMI result Body Mass Index 33.6 Tobacco/Smoking Status: Tobacco use Status Tobacco use date assessed 02/24/23 03/31/23 10:37 Patient Tobacco Use Status Never used Tobacco 03/31/23 10:37 e-Cigarette/Vaping Use Never Used 03/31/23 10:37 Thrive Assessment: Date of Thrive Assessment Date Thrive assessed 02/24/23 03/31/23 10:37 Const Other: General: no acute distress and well developed Nutritional Appearance: well nourished Orientation/consciousness: patient oriented x3 HENMT Head: Yes normocephalic and Yes atraumatic Eyes General: appearance normal, both eyes and all related structures Pupils: Equal, round and reactive pupils present EOM: EOMs intact bilaterally Resp Effort & Inspection: normal respiratory effort Auscultation: clear to auscultation bilaterally Cardio Rate: regular rate Rhythm: regular rhythm Heart sounds: S1 normal heart sound present, S2 normal heart sound present, no gallops, no murmurs and no rubs GI Palpation (GI): No Abdominal aortic bruit present, Soft to palpation, nontender, No hepatosplenomegaly present and No Rebound tenderness present Auscultation: normal bowel sounds General: Yes no CVA tenderness Back/Spine/Pelvis Back: no CVA tenderness Cervical Spine: cervical ROM normal and No Cervical spine tenderness Thoracic/Lumbar Spine: thoraco-lumbar ROM normal, No pain with thoraco-lumbar ROM, No thoracic spinal tenderness and No lumbar spinal tenderness Extrem General: Yes normal to inspection, No edema and No calf tenderness Skin General: warm and dry. Normal skin color. Normal skin turgor Lesions: no lesions Rashes: no rashes Trauma: no lacerations or abrasions Wounds: no wounds Nails: normal Neuro General: patient oriented x3, gait normal and no focal neuro deficit Cranial nerves: Yes Equal, round and reactive pupils present Cognition (Neuro): normal cognition Gait exam (Neuro): Normal gait present Sensory Exam: No Sensory deficit (Neuro) Psych Appearance: grossly normal Affect: normal affect Attitude: cooperative Thought process: Normal thought process present Assessment and Plan Assessment & Plan (1) Essential hypertension: Code(s): I10 - Essential (primary) hypertension Plan: Resting blood pressure is 170/90, above goal of less than 140/90 Will increase amlodipine to 5 mg daily take as prescribed Continue to take or olmesartan-hydrochlorothiazide as prescribed Low-sodium diet encouraged Continue to check blood pressure daily Follow-up with cardiology as planned Message sent to Cardiology regarding patient not being compliant with his medication regimen Return in 1 month for complete physical exam and hypertension or sooner with symptoms or concerns Verbalized understanding and agreed with treatment plan. Medications: New amlodipine 5 mg PO DAILY 30 tabs 3RF 30 days Discontinued amlodipine Discontinued Reason: Doctor's Order 2.5 mg PO DAILY 30 tabs 3RF 30 days Coding Level of Care Code Est Pt Level 3 (48777) Diagnoses Essential hypertension I10
== END 2023-03-31 10:56 | disposition home or self-care (01) ==
PROVIDERS: PCP Nurse Practitioner Family; Visit Provider Nurse Practitioner Family
DX: I10 Essential (primary) hypertension (principal)
CPT/HCPCS: 99213

== ENCOUNTER 2023-04-06 14:05 | Outpatient (AMB) | payer MEDICARE, SELFPAY ==
[2023-04-06 14:55] VITALS: BP 160/82; PULSE 52; BMI 32.9
--- NOTE | 2023-04-06 14:55 | MHC.OFFVIS ---
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 He was noted to have elevated blood pressure and was treated with antihypertensives. He ruled out for ACS. He was referred to Cardiology for further evaluation. Today he reports that he has been feeling generally well. He denies any known cardiac history. He does report known history of high blood pressure but does not like to take his medications due to side effects. He tells me he is not taking the olmesartan/hydrochlorothiazide medication as it made him itchy. He says he has the amlodipine but has not taking it. He says his blood pressure at home typically runs around 160 systolic and that his is normal. He tells me he does not feel well if his blood pressure is lower. He is vague reports of chest area discomfort. No clear exertional symptoms. No concerning shortness of breath, presyncope, syncope, PND, orthopnea or edema. He does notice some heart palpitations like his heart is skipping beats. He reports good activity tolerance. Nonsmoker, no routine alcohol use. No known family history of heart disease. [facility] Medical History Essential hypertension Finger amputee Surgical History H/O hernia repair History of amputation of finger of both hands Social History Household Members: Family Housing: House Patient Tobacco Use Status: Never used Tobacco e-Cigarette/Vaping Use: Never Used service: No Current occupational status: retired Current occupational exposures/hazards: No Cognitive needs: No Hearing needs: No Vision needs: No Review of Systems Const All systems reviewed & are unremarkable except as noted in HPI and below ENT Denies dizziness Card Denies chest pain, Denies chest pain at rest, Denies chest pain with activity, Denies rapid heart rate, Denies pedal edema, Denies edema, Denies leg edema, Denies lightheadedness, Denies palpitations, Denies dyspnea, Reports dyspnea on exertion and Denies orthopnea Resp Denies cough, Denies dyspnea and Reports dyspnea on exertion GI Denies hematochezia and Denies change in stool character Musc Denies abnormal gait, Denies limited range of motion, Denies muscle cramps, Denies muscle weakness, Denies numbness, Denies radiating pain into limb, Denies stiffness and Denies tingling Neuro Denies abnormal gait, Denies dizziness, Denies numbness and Denies tingling Endo Denies palpitations Physical Exam Vital Signs: Last Vital Signs Pulse 52 04/06/23 14:55 BP 160/82 H 04/06/23 14:55 BMI result Body Mass Index 32.9 Const General: cooperative, healthy appearing, comfortable and no acute distress Orientation/consciousness: patient oriented x3 Neck Neck: Yes normal visual inspection Resp Effort & Inspection: normal respiratory effort Auscultation: clear to auscultation bilaterally, no crackles, no rales, no rhonchi and no wheezes Cardio Jugular venous distension: no JVD Rate: regular rate Rhythm: regular rhythm Heart sounds: S1 normal heart sound present, S2 normal heart sound present, no gallops, no murmurs and no rubs Neuro General: patient oriented x3 Extrem General: Yes normal to inspection and No no pedal edema Psych Appearance: grossly normal Mental Status: mental status grossly normal Speech and movement: Normal speech and movement present Assessment & Plan Assessment & Plan (1) Essential hypertension: Code(s): I10 - Essential (primary) hypertension Plan: Reported history of hypertension, uncontrolled. He tells me home blood pressure is typically 160 systolic. He is not taking medications consistently. He prefers to use Valerian root which helps him relax and he says brings his blood pressure down. He had been on olmesartan and hydrochlorothiazide which he stopped as he said it made him itchy. He has amlodipine but tells me he has not taken it. He is not interested in other medications at present. Spoke with him about the importance of good blood pressure control and the effects of uncontrolled hypertension on his heart and vasculature. His EKG does show signs of LVH. He was recently seen in the ER with chest discomfort and uncontrolled hypertension. He has amlodipine at home, instructed to start taking the 5 mg b.i.d.. Will check echocardiogram to assess for structural heart disease including degree of LVH. Will check nuclear stress test to evaluate for any ischemia. Low-salt diet reviewed. Light activity as tolerated. Cardiology follow-up when test results are available. (2) Chest discomfort: Code(s): R07.89 - Other chest pain Plan: As above (3) PAC (premature atrial contraction): Code(s): I49.1 - Atrial premature depolarization Plan: EKG today and prior shows frequent PACs. He does feel heart palpitations at times like skips in his chest. Will check echocardiogram as above. Will check Holter monitor to assess frequency of PACs and for other arrhythmia such as AFib. Resting heart rate today 52. He is not on rate slowing medications. Orders: Orders CA stress test 04/06/23 I10 - Essential (primary) hypertension, R07.89 - Other chest pain CA echo transthoracic complete 04/06/23 I10 - Essential (primary) hypertension, R07.89 - Other chest pain ECG 3 day holter monitor 04/06/23 I49.1 - Atrial premature depolarization NM cardiolite stress test 04/06/23 I10 - Essential (primary) hypertension, R07.89 - Other chest pain Coding Level of Care Code New Pt Level 4 (55764) Diagnoses Essential hypertension I10 Chest discomfort R07.89 PAC (premature atrial contraction) I49.1 Time Spent (min) 35 Comment Chart review, documentation, interview, assessment
== END 2023-04-06 15:57 | disposition home or self-care (01) ==
PROVIDERS: PCP Nurse Practitioner Family; Referring Provider Nurse Practitioner Family; Visit Provider Nurse Practitioner Family
DX: I10 Essential (primary) hypertension (principal); R07.89 Other chest pain; I49.1 Atrial premature depolarization
CPT/HCPCS: 99204

== ENCOUNTER → 2023-04-06 14:05 | Outpatient (BNVA) | payer MEDICARE, SELFPAY | PROVIDERS: PCP Nurse Practitioner Family; Referring Provider Nurse Practitioner Family; Visit Provider Nurse Practitioner Family | DX: I10 Essential (primary) hypertension (principal); R07.89 Other chest pain; I49.1 Atrial premature depolarization | CPT/HCPCS: 99202 ==

== ENCOUNTER → 2023-05-12 08:41 | Outpatient (REF) | payer MEDICARE, SELFPAY ==
--- NOTE | ~2023-05-12 | NM_ITS ---
Myocardial perfusion study Indication: Chest pain to evaluate for myocardial ischemia Technique: The patient was brought in for a Lexiscan perfusion study on 05/12/2023. Patient performed low-level exercise and was injected 0.4 mg of Lexiscan intravenously. Within a minute of injection, 35 mCi of sestamibi was given intravenously. Images were obtained using the SPECT gamma camera interlaced with the gating device. Images were obtained in supine position. Resting perfusion study was performed on 05/13/2023. Patient was administered 35 mCi of sestamibi intravenously at rest. Images were then obtained in supine position. Images obtained with and without CT attenuation. Total DLP 119 mGy-cm. Images were processed with the software and compared side to side in short axis, horizontal long axis and vertical long axis views. Findings: The stress perfusion study showed non attenuated images show mildly reduced uptake in the inferolateral wall of the LV myocardium as well as mildly reduced inferior wall of the LV myocardium. Remainder of the LV myocardium is normally perfused. Attenuation corrected images show thinning and minimally reduced uptake in the inferolateral wall of the LV myocardium with mildly reduced uptake in the apex of the LV myocardium.. The gated study shows normal LV systolic function with calculated LVEF of 51%. LV cavity is mildly dilated size. The gated study shows normal systolic wall thickening and contraction of segments. Resting study shows non attenuated images show improved uptake in the inferoapical as well as mid inferior wall and uptake in the inferolateral wall of the LV myocardium. Attenuation corrected images show normal uptake in the inferolateral wall of the myocardium. Gating at rest reveals normal systolic wall motion with ejection fraction at 54%. The findings are consistent with mild intensity reversible defect present on attenuated and not attenuated images the inferolateral wall suggestive of ischemia.. NM/NM cardiolite stress test Impression: 1. Myocardial perfusion imaging study shows mild intensity inferolateral wall ischemia 2. Gated LVEF is 51% 3. Transient ischemic dilatation present EKG is nondiagnostic for ischemia
--- NOTE | 2023-05-12 08:45 | CA_ITS ---
Transthoracic Echocardiogram Patient (Last, First, Middle): Edmund Valentin, Gender: Male Date of : 1950 Age: 72 Procedure Date: 05/12/2023 Procedure Type: Transthoracic Echocardiogram Location: OP Height: 177.8 cm Weight: 101.61 kg BSA: 2.19 m2 Heart Rate: 63 bpm BP: 148 / 74 mmHg Foot Worker: SB Referring MD: Gwen Dougherty [employer]-C Symptoms: I10 - Essential (primary) hypertension Study Quality: Adequate ECG Rhythm: Sinus Conclusions: - The left ventricular systolic function is normal. The calculated ejection fraction is 59% by biplane method. - There is moderately increased left ventricular wall thickness. - There is severe septal asymmetric hypertrophy. - Evidence suggests grade III (severe) diastolic dysfunction. - No obvious valvular pathology seen on this study. - There is mild dilatation of the ascending aorta measuring 4.40 cm. Findings Left Ventricle Normal left ventricular cavity size. There is moderately increased left ventricular wall thickness. The left ventricular systolic function is normal. The calculated ejection fraction is 59% by biplane method. There is no evidence of regional wall motion abnormalities. Evidence suggests grade III (severe) diastolic dysfunction. There is severe septal asymmetric hypertrophy. Right Ventricle Normal right ventricular cavity size. There is low normal right ventricular systolic function. Atria Both atria are normal in size. Aortic Valve There is a normal trileaflet aortic valve. There is no aortic valve stenosis. There is no aortic valve regurgitation. Mitral Valve The mitral valve appears normal. There is no mitral valve regurgitation. There is no mitral valve stenosis. Pulmonic Valve The pulmonic valve is likely normal. There is trace pulmonic valve regurgitation. Tricuspid Valve There is mild tricuspid valve regurgitation. There is no evidence of pulmonary hypertension. Great Vessels The aortic arch is normal in size. There is mild dilatation of the ascending aorta measuring 4.40 cm. Venous The inferior vena cava is normal in size and collapses greater than 50% with inspiration. Pericardium/Pleural There is no evidence of pericardial effusion. Prior Study Comparison No prior study available for comparison. Recommendations, Care & Conclusions No obvious valvular pathology seen on this study. Measurements 2D Linear Measurements IVSd: 1.79 0.6-0.9/0.6-1.0 cm LVIDd: 5.25 3.9-5.3/4.2-5.9 cm LVIDd Index: 2.40 2.4-3.2/2.2-3.1 cm/m2 LVIDs: 3.87 2.0-3.6 cm LVPWd: 1.44 0.7-1.1 cm LA Diam: 4.80 2.7-3.8/3.0-4.0 cm LAIDs Index: 2.19 1.5-2.3 cm/m2 LV Mass: 483.70 67-162/88-224 g LV Mass Index: 220.87 43-95/49-115 g/m2 LVOT Diam: 2.10 3.0+(-)1.3 cm 2D Systolic Function EF 4C: 51.00 >55% EF 2C: 64.20 >55% EF BiP: 58.70 >55% Mitral Valve MV Pk E: 1.02 MV PK A: 0.39 MV Decel Time: 233.00 E/A: 2.60 E'Lateral: 3.87 E'Medial: 3.19 E/E' Med: 32.00 E/E' Lat: 26.40 PHT: 68.00 MVA PHT: 3.24 Decel [place]: 4.36 Aortic Valve AoV Pk Warren: 1.16 AoV Pk Grad: 5.00 SAIRA: 2.90 LVOT LVOT Pk Warren: 1.06 LVOT Mn Warren: 0.74 LVOT VTI: 0.23 LVOT Pk Grad: 4.00 LVOT Mn Grad: 3.00 LVOT Diam: 2.10 LVOT Area: 3.46 Diastolic Function MV Pk E: 1.02 MV Pk A: 0.39 E/A: 2.60 E'Medial: 3.19 E/E' Med: 32.00 E' Laterial: 3.87 E/E' Lat: 26.40 Right Ventricle TAPSE (mm): 19.70 TVS' Warren: 10.20 Tricuspid Valve TR Pk Warren: 2.43 TR Pk Grad: 24.00 RA Press: 3.00 Great Vessels Aorta Sinus of Valsalva: 3.70 2.0-3.5 cm Ao Asc: 4.40 2.1-3.4 cm Ao Arch: 3.20 Pulmonary Valve PV Pk Warren: 0.77 Peak PV Grad: 2.00 NE Pk Warren: 2.06 Updated in Other Vendor System with Status of Final Jm Fraser MD electronically signed on 05/14/2023 1:04:17 PM with status of Final
--- NOTE | 2023-05-12 08:45 | CA_ITS ---
Acquisition Time: 2023-05-12 10:22:39 Total Exercise Time: 00:05:10 Test Indications: CP ARM NUMBNESS Medications: AMLODIPINE Protocol: BOLIVAR Max HR: 111 BPM 74% of Pred: 149 BPM Max BP: 208/100 mmHG Max Work Load: 7.0 METS Exercise stress test exercise 5 min 10 sec of Bolivar protocl achieving 72% MPHR with need to stop due to hypertensive response and suboptimal HR, with mild SOB, no chest pain, with isolated PACs, without EKG changes. Once BP improved test changed to pharmacological stress test with Lexiscan. -- After 24 min of recovery - Pharmacological stress test done with Lexiscan injection, while sitting and kicking his legs, without anginal symptoms, with isolated PACs and PVCs, with elevated BP at start and no significant change post injection, with nondiagnostic EKG for ischemia. In recovery he was given Aminophyllline 75mg IVP to reverse Lexiscan. Nuclear images pending. Test reviewed with Dr Fraser. Referred By: Gwen Dougherty Overread By: Amalia Mackey
== END ==
LOC: HO.CARD 08:41
PROVIDERS: PCP Nurse Practitioner Family; Visit Provider Nurse Practitioner Family
DX: R07.89 Other chest pain (principal); I49.1 Atrial premature depolarization; I10 Essential (primary) hypertension
CPT/HCPCS: 78452; 93017; 93242; 93306; A9500; J0280; J2785

== ENCOUNTER → 2023-05-12 08:45 | Outpatient (BNV) | payer MEDICARE, SELFPAY | PROVIDERS: PCP Nurse Practitioner Family; Visit Provider Nurse Practitioner | DX: I47.10 Supraventricular tachycardia, unspecified (principal) | CPT/HCPCS: 78452; 93016; 93018; 93244; 93306 ==

== ENCOUNTER 2023-05-21 04:09 | Inpatient (IN) | payer MEDICARE, SELFPAY ==
[2023-05-21] VITALS (10 sets, daily range): BP systolic 93–170; BP diastolic 62–88; PULSE 53–120; RESP 16–20; TEMP 36.4–37.3; O2SAT 93–98; BMI 34.9; BMI 35.6
--- NOTE | 2023-05-21 | ECG_ITS ---
Test Reason : CP Blood Pressure : / mmHG Vent. Rate : 145 BPM Atrial Rate : 000 BPM P-R Int : 000 ms QRS Dur : 090 ms QT Int : 316 ms P-R-T Axes : 000 -16 164 degrees QTc Int : 490 ms Atrial fibrillation with rapid ventricular response Moderate voltage criteria for LVH, may be normal variant ( R in aVL , Billy product ) Marked ST abnormality, possible lateral subendocardial injury Abnormal ECG When compared with ECG of 10-MAR-2023 11:54, Atrial fibrillation has replaced Sinus rhythm Vent. rate has increased BY 74 BPM Referred By: Generic ED Physician Electronically Signed By:JAMES WONG MD
--- NOTE | ~2023-05-21 | XR_ITS ---
EXAMINATION: XR CHEST CLINICAL INFORMATION: Chest pain COMPARISON: 03/10/2023 TECHNIQUE: Frontal view of the chest was obtained. FINDINGS: Normal symmetric lung volumes. No parenchymal consolidation. Mild bronchial wall thickening. No pleural effusion. No pneumothorax. Cardiomediastinal silhouette and pulmonary vascularity are within normal limits. No acute osseous abnormalities. XR/XR chest 1V IMPRESSION: Mild bronchial wall thickening suggestive of bronchitis.
--- NOTE | 2023-05-21 04:30 | ED_ITS ---
HPI - Chest Pain General Chief Complaint: Chest Pain Stated Complaint: Chest Pain Time Seen by Provider: 05/21/23 04:23 Source: patient and family ( and daughter) Mode of arrival: ambulatory History of Present Illness HPI narrative: 72-year-old male who presents to the emergency room for chest pain and shortness of breath since 22:00 this evening, he is currently under the care of cardiology. Patient reports he did have associated nausea and dizziness. Related Data Previous Rx's Medication Instructions Recorded amlodipine 5 mg tablet 5 mg PO DAILY 30 days #30 tabs 03/31/23 Allergies Allergy/AdvReac Type Severity Reaction Status Date / Time No Known Allergies Allergy Verified 05/21/23 04:12 Review of Systems 2 Review of Systems: Pertinent positives and negatives as stated in HPI PMFSH Past Medical History Source: nursing notes reviewed Medical History Finger amputee Essential hypertension Surgical History History of amputation of finger of both hands H/O hernia repair Social History Social History Household Members: Family Housing: House Patient Tobacco Use Status: Never used Tobacco e-Cigarette/Vaping Use: Never Used Advance Directives: No Advance Directives Information Provided: No service: No Current occupational status: retired Current occupational exposures/hazards: No Cognitive needs: No Hearing needs: No Vision needs: No Physical Exam 2 Vital Signs: Vital Signs: Last Vital Signs Temp 98.8 F 05/21/23 05:52 Pulse 117 H 05/21/23 06:18 Resp 16 05/21/23 06:18 BP 124/64 05/21/23 06:18 Pulse Ox 94 05/21/23 05:52 O2 Del Method Room Air 05/21/23 06:18 BMI result Body Mass Index 34.9 VITAL SIGNS: Reviewed. GENERAL: Well developed, well nourished, in no acute distress. HEAD: Normocephalic/atraumatic EYES: PERRLA, EOMI EARS: Ext canals without abnormality NOSE: Nares patent bilateral OROPHARYNX: no oral lesions noted, posterior pharynx clear NECK: Supple, no adenopathy LUNGS: Normal breath sounds. No adventitious sounds or accessory muscle use. SpO2<94> CARDIOVASCULAR: Regular rate and rhythm without noted murmurs, no JVD or lower extremity edema. ABDOMEN: Soft, non-tender, non-distended with bowel sounds. MUSCULOSKELETAL: No tenderness, deformities, or effusions noted on gross inspection. EXTREMITIES: No cyanosis, clubbing or edema. SKIN: Inspection of the skin reveals no rashes NEUROLOGIC: Alert and oriented x 4. Strength and sensation to light touch were grossly intact x 4. Medications Administered Discontinued Medications Generic Name Dose Route Start Last Admin Trade Name Freq PRN Reason Stop Dose Admin Diltiazem HCl 5 mg 05/21/23 05:58 05/21/23 06:19 Diltiazem Hcl 50 Mg/10 Ml Vial IVPUSH 05/21/23 05:59 5 mg STAT STA Administration Diltiazem HCl 5 mg 05/21/23 06:52 05/21/23 07:04 Diltiazem Hcl 50 Mg/10 Ml Vial IVPUSH 05/21/23 06:53 5 mg STAT STA Administration Furosemide 40 mg 05/21/23 05:40 05/21/23 05:46 Furosemide 40 Mg/4 Ml Vial IVPUSH 05/21/23 05:41 40 mg ONCE ONE Administration Protocol Metoprolol Tartrate 2.5 mg 05/21/23 04:29 05/21/23 04:35 Metoprolol Tartrate 5 Mg/5 Ml Vial IVPUSH 05/21/23 04:30 2.5 mg ONCE ONE Administration Medical Decision Making Medical Decision Making [facility] Narrative: 0431: 72-year-old male with history and clinical presentation of acute onset atrial fibrillation with RVR, DDX: Infection, anemia, electrolyte abnormalities, pulmonary edema 0447: HR has improved after 2.5 mg of Lopressor. Patient has also received subsequent doses of 5 mg of Cardizem x2 and chads Vasc score is 2 and patient received Lovenox subcutaneous at 1mg/kg. Reviewed all investigations and hematoma to logic indices are negative for leukocytosis there is no anemia or thrombocytopenia. Coagulation studies are within normal limits. Chemistry indices do not demonstrate any SHAHEEN and there is no electrolyte or liver enzyme abnormality. BNP is elevated at 793 and chest x- ray demonstrates cardiomegaly and suggest bronchitis. High sensitivity troponin is 53.1, however this is suspected to be demand secondary to patient's RVR. Urinalysis is negative for UTI or hematuria. My interpretation is patient has experienced atrial fibrillation with RVR the does not appear to be associated with infection, anemia or electrolyte abnormalities. Patient was noted to be CHF and received 40 mg of Lasix. Signed out to Dr Harper - rate control and admission Differential Diagnosis Differential Diagnoses: The differential diagnosis associated with the presentation includes Please see the discussion above Admission/Observation Consideration of admission/observation: Escalation of care including admission/observation considered Please see the discussion above Lab Data MDM Lab Attestation statement: I reviewed the patient's lab results. Please see the discussion above 05/21/23 04:34 05/21/23 04:32 Labs: Lab Results 05/21/23 05/21/23 05/21/23 Range/Units 04:32 04:34 06:56 WBC 8.6 (4.8-10.8) X10*3/uL RBC 5.14 (4.60-5.80) X10*6/uL Hgb 15.4 (14.0-18.0) g/dl Hct 45.5 (42.0-52.0) % MCV 88.5 (80.0-98.0) fL MCH 30.0 (27.0-33.0) pg MCHC 33.8 (31.0-36.0) g/dl RDW 13.3 (11.0-16.0) % Plt Count 254 (160-400) X10*3/uL MPV 9.8 (9.4-12.4) fL Immature Gran % (Auto) 0.2 (0.0-0.4) % Neut % (Auto) 82.6 H (45-73) % Lymph % (Auto) 10.7 L (20-40) % [place] % (Auto) 5.7 (2-11) % Eos % (Auto) 0.5 (0-4) % Baso % (Auto) 0.3 (0-2) % Lymph # (Auto) 0.9 L (1.2-4.9) X10*3/uL [place] # (Auto) 0.5 (0.1-1.2) X10*3/uL Eos # (Auto) 0.0 (0.0-0.4) X10*3/uL Baso # (Auto) 0.0 (0.0-0.2) X10*3/uL Abs Immat Gran (auto) 0.02 (0.00-0.03) X10*3/uL Absolute Neuts (auto) 7.1 (2.0-8.3) x10*3/uL Absolute Nucleated RBC 0.000 (0.0-0.012) X10*3/uL Nucleated RBC % (auto) 0.0 (0.0-0.2) /100WBC PT 12.1 (11.1-13.3) SEC INR 1.0 (0.9-1.1) Sodium 139 (135-145) mmol/L Potassium 4.4 (3.3-5.1) mmol/L Chloride 106 (96-108) mmol/L Carbon Dioxide 22 (22-29) mmol/L Anion Gap 15 (12-20) BUN 20 H (9-16) mg/dL Creatinine 0.97 (0.5-1.4) mg/dL Estim Creat Clear Calc 79.1 Estimated GFR > 60 Random Glucose 154 H (60-115) mg/dL Calcium 9.4 (8.4-10.2) mg/dL Total Bilirubin 0.8 (0.0-1.0) mg/dL AST 19 (5-37) U/L ALT 9 (0-40) U/L Alkaline Phosphatase 61 (39-117) U/L Troponin I High Sens 53.1 H D (<3.5-35.0) ng/L B-Natriuretic Peptide 793 H (<100) pg/mL Total Protein 7.3 (6.5-8.0) g/dL Albumin 4.2 (3.5-5.0) g/dL Urine Color Yellow Urine Appearance Clear Urine pH 5.5 (5.0-9.0) Ur Specific [place] 1.010 (1.005-1.025) Urine Protein Negative (Neg-Trace) mg/dL Urine Glucose (UA) Negative (Negative) mg/dL Urine Ketones Negative (Negative) mg/dL Urine Blood Negative (Negative) Urine Nitrite Negative (Negative) Ur Leukocyte Esterase Negative (Negative) COVID-19 ([place]) Negative (Negative) COVID-19 Clin Com See Note Influenza Type A (MOLLY) Negative (Negative) Influenza Type B (MOLLY) Negative (Negative) Influenza A & B Note See Note Independent Interpretation I performed an independent interpretation of an: EKG Interpretation: Atrial fibrillation with RVR, HR-145, no STEMI but there are ST changes which are present on previous EKG. Radiology Impression Discussion of test interpretation with radiology: I have reviewed the radiologist's reading. Radiologist Impression: Please see the discussion above External Record Review External record reviewed: Outpatient record, Prior outpatient labs and Prior outpatient radiology Chronic Conditions Patient?s care impacted by: Hypertension Critical Care Time Critical Care Time Critical Care Time: Yes Total Critical Care Time: 45 Attestation: I personally attest to this time spent taking care of the patient. Discharge Plan Discharge Clinical Impression: Atrial fibrillation, new onset, Atrial fibrillation with RVR, CHF (congestive heart failure) Patient Disposition: Admitted As Inpatient Prescriptions: No Action amlodipine 5 mg tablet 5 mg PO DAILY 30 Days Qty: 30 3RF
[2023-05-21] MEDS: Metoprolol Tartrate 5 MG/5 ML VIAL 2.5 MG IVPUSH (04:35)
[2023-05-21 04:41] LABS: Basophils Percent Auto 0.3 % (0-2); Eosinophils Percent Auto 0.5 % (0-4); Hematocrit 45.5 % (42.0-52.0); Hemoglobin 15.4 g/dl (14.0-18.0); Imm Gran Abs Auto 0.02 X10*3/uL (0.00-0.03); Imm Gran Pct Auto 0.2 % (0.0-0.4); Lymphocytes Absolute Auto 0.9 X10*3/uL (1.2-4.9); Lymphocytes Percent Auto 10.7 % (20-40); MANUAL DIFF FLAG NO; Mean Corpuscular HGB Conc 33.8 g/dl (31.0-36.0); Mean Corpuscular Volume 88.5 fL (80.0-98.0); Mean Platelet Volume 9.8 fL (9.4-12.4); Monocytes Absolute Auto 0.5 X10*3/uL (0.1-1.2); Monocytes Percent Auto 5.7 % (2-11); Neutrophils Absolute Auto 7.1 x10*3/uL (2.0-8.3); Neutrophils Percent Auto 82.6 % (45-73); Platelet Count 254 X10*3/uL (160-400); Red Blood Count 5.14 X10*6/uL (4.60-5.80); Red Cell Distribution Width 13.3 % (11.0-16.0); White Blood Count 8.6 X10*3/uL (4.8-10.8)
[2023-05-21 04:49] LABS: Prothrombin Time 12.1 SEC (11.1-13.3)
[2023-05-21 04:53] LABS: COVID-19 Test Negative (Negative); IDNOW Serial# 08D9AD1C; IDNOW Serial# BCCEAD1C; Influenza A Negative (Negative); Influenza B2 Negative (Negative)
[2023-05-21 05:38] LABS: Alanine Aminotransferase 9 U/L (0-40); Albumin Level 4.2 g/dL (3.5-5.0); Alkaline Phosphatase 61 U/L (39-117); Anion Gap 15 (12-20); Aspartate Amino Transferase 19 U/L (5-37); B Type Natriuretic Peptide 793 pg/mL (<100); Bilirubin Total 0.8 mg/dL (0.0-1.0); Blood Urea Nitrogen 20 mg/dL (9-16); Calcium 9.4 mg/dL (8.4-10.2); Carbon Dioxide 22 mmol/L (22-29); Chloride 106 mmol/L (96-108); Creatinine Clr Calc Pharmacy 79.1; Estimated Glomerular Filt Rate > 60; Glucose Random 154 mg/dL (60-115); Potassium 4.4 mmol/L (3.3-5.1); Sodium 139 mmol/L (135-145); Total Protein 7.3 g/dL (6.5-8.0); Troponin-I High Sensitivity 53.1 ng/L (<3.5-35.0)
[2023-05-21] MEDS: Furosemide 40 MG/4 ML VIAL IVPUSH (05:46)
[2023-05-21] MEDS: dilTIAZem HCL 50 MG/10 ML VIAL IVPUSH ×2 (06:19→07:04)
[2023-05-21 07:02] LABS: Appearance Urine Clear; Color Urine Yellow; Glucose Urine UA Negative (Negative); Leukocyte Esterase Urine Negative (Negative); Nitrite Urine Negative (Negative); PH 5.5 (5.0-9.0); Urine Blood Negative (Negative); Urine Ketones Negative (Negative); Urine Protein Negative (Neg-Trace)
[2023-05-21] MEDS: dilTIAZem HCL 30 MG TABLET PO (08:14)
[2023-05-21] MEDS: Enoxaparin Sodium 100 MG/ML SYRINGE SUBCUT ×2 (08:14→22:30)
--- NOTE | 2023-05-21 08:41 | PHA.MEDREC ---
Pharmacy Consult ? Medication Reconciliation Pharmacy has completed the medication reconciliation.PT STATES HIS DOCTOR TOLD HIM TO STOP ALL MEDICATIONS EXCEPT FOR AMLODIPINE 5 MG.
--- NOTE | 2023-05-21 09:29 | PC.NURSE ---
Pt is alert/oriented. Family initially at bedside however have since left, daughter Yara contact [phone] will return later in day. Pt noted to be in rapid a fib, HR 110-140s depending on activity. States he feels much better with decreased tightness in chest. Denies SOB or dizziness. Medicated as charted. Using urinal PRN. Skin p/w/d. Arabic speaking but able to understand/speak some Lebanese.
[2023-05-21 10:14] LABS: Troponin-I High Sensitivity 150.6 ng/L (<3.5-35.0)
--- NOTE | 2023-05-21 10:17 | ECG_ITS ---
Test Reason : rhythm change Blood Pressure : / mmHG Vent. Rate : 068 BPM Atrial Rate : 068 BPM P-R Int : 154 ms QRS Dur : 098 ms QT Int : 416 ms P-R-T Axes : 038 -21 152 degrees QTc Int : 442 ms Sinus rhythm with Premature atrial complexes Left ventricular hypertrophy with repolarization abnormality ( R in aVL , Billy product ) Abnormal ECG When compared with ECG of 21-MAY-2023 04:13, Sinus rhythm has replaced Atrial fibrillation Vent. rate has decreased BY 77 BPM Referred By: Artemio Harper Electronically Signed By:JAMES WONG MD
--- NOTE | 2023-05-21 10:32 | PC.NURSE ---
Sinus noted on tele, repeat EKG obtained and confirms SR, troponin 150.6 Dr Harper notified. Pt feeling much better.
--- NOTE | 2023-05-21 11:20 | PM.IMHP ---
History of Present Illness Date of Service: 05/21/23 Attending physician on admission: [facility] Chief Complaint: Chest pressure Pt is a 72-year-old male with a PMH significant for?HTN who presents to the ED for evaluation of?a constant chest pressure since last night with associated SOB. Patient states he began experiencing chest pressure/tightness at approximately 21:00 last night. Chest pressure was left-sided, centered over his heart, nonradiating. Was constant with no clear exacerbating or alleviating factors. Patient was sitting in his chair at the time of symptom onset. Patient also noted his heart felt like it was ?jumping? and beating very fast. Also experienced shortness of breath, difficulty breathing, and fatigue. Patient denies cough, increased swelling in his legs, or experiencing SOB outside of last night. Patient states he is usually quite active and has had no recent reduction in his level of activity. Also denies nausea, vomiting, abdominal pain. Of note, patient has been experiencing palpitations/irregular heartbeat and chest pressure for the past few months. Initially saw his primary care on 03/10/2023 for the symptoms to sent him to the ED for evaluation of irregular heartbeat. In the ED was noted to have PACs on EKG, and was set up with Cardiology outpatient follow-up. He wore an extended Holter monitor for 3 days which was relatively benigh, showing underlying sinus rhythm with frequent supraventricular ectopy with a burden of 5.5%, but with no significant pauses or AV blocks. Exercise stress test on 05/12/2023 was stopped due to hypertensive response and suboptimal HR with mild SOB, no chest pain, and isolated PACs without EKG changes. Then switched to a pharmacological stress test that was also benign: patient experienced no anginal symptoms with isolated PACs and PVCs with elevated BP at start and no diagnostic EKG for ischemia. Patient also underwent echocardiogram on 05/12/2023 that showed normal LV systolic function with EF of 59% with moderately increased LV wall thickness and severe septal asymmetric hypertrophy and grade 3 diastolic dysfunction with no obvious valvular pathology. In the ED patient was afebrile but tachycardic up to 140s, and slightly hypertensive up to 147/88. Labs were significant for initial troponin 53.1 with repeat elevated at 150.6, and BNP 793 (previous 232). H&H stable, no leukocytosis. Coags WNL. Electrolytes WNL. Renal function baseline. Hepatic function baseline. UA negative for UTI. CXR showed mild bronchial wall thickening suggestive of bronchitis. Initial EKG demonstrated AFib with RVR [address] abnormalities. Repeat EKG showed sinus rhythm with PACs and continued ST abnormalities. Pt was treated with metoprolol, furosemide, diltiazem p.o. and IV, and therapeutic Lovenox. Pt will be admitted to the hospital under observation on telemetry for treatment for evaluation of new onset AFib with RVR. Review of Systems Review of Systems: Left-sided, nonradiating chest pressure Palpitations SOB, fatigue Denies fever, chills, nausea, vomiting No abdominal pain PMFSH Medical History Finger amputee Essential hypertension Surgical History History of amputation of finger of both hands H/O hernia repair Social History Household Members: Family Housing: House Patient Tobacco Use Status: Never used Tobacco Smoked in Last 30 Days: No e-Cigarette/Vaping Use: Never Used Use of substances other than those prescribed or required for medical reasons: No Advance Directives: No Advance Directives Information Provided: No service: No Current occupational status: retired Current occupational exposures/hazards: No Cognitive needs: No Hearing needs: No Vision needs: No Meds Allergies Allergy/AdvReac Type Severity Reaction Status Date / Time No Known Allergies Allergy Verified 05/21/23 04:12 Home Medications Medication Instructions Recorded Confirmed Last Taken Type amlodipine 5 mg tablet 5 mg PO BEDTIME 05/21/23 05/21/23 05/19/23 History Physical Exam Vital Signs and Narrative: Vital Signs: Last Vital Signs Temp 98.8 F 05/21/23 05:52 Pulse 57 05/21/23 11:04 Resp 16 05/21/23 11:04 BP 147/75 H 05/21/23 11:04 Pulse Ox 95 05/21/23 11:04 O2 Del Method Room Air 05/21/23 11:04 BMI result Body Mass Index 34.9 Constitutional: Alert, in no acute distress. Mental Status: Oriented to person, place and time. Eyes: Pupils are equal, round, and reactive to light. Ear, Nose, and Throat: Oropharynx clear, mucous membranes moist. Ears and nose without deformities. Trachea midline. Respiratory: Clear to auscultation bilaterally. No wheezing, rales, or rhonchi. Cardiovascular: Regularly irregular heartbeat. No murmurs, rubs, or gallops. Gastrointestinal: Abdomen soft, non-tender, non-distended. Normal bowel sounds. Neurologic: Cranial nerves II-XII are grossly intact bilaterally. No focal neurological deficits. Moves all extremities spontaneously. Skin: No rashes or lesions noted. Musculoskeletal: No cyanosis or clubbing. Extremities: No edema. Psychiatric: Normal mood and affect. Results Labs 05/21/23 04:34 05/21/23 04:32 Labs: Laboratory Results - last 24 hr 05/21/23 05/21/23 05/21/23 04:32 04:34 06:56 MCV 88.5 MCH 30.0 MCHC 33.8 RDW 13.3 Plt Count 254 MPV 9.8 Immature Gran % (Auto) 0.2 Neut % (Auto) 82.6 H Lymph % (Auto) 10.7 L [place] % (Auto) 5.7 Eos % (Auto) 0.5 Baso % (Auto) 0.3 Lymph # (Auto) 0.9 L [place] # (Auto) 0.5 Eos # (Auto) 0.0 Baso # (Auto) 0.0 Abs Immat Gran (auto) 0.02 Absolute Neuts (auto) 7.1 Absolute Nucleated RBC 0.000 Nucleated RBC % (auto) 0.0 PT 12.1 INR 1.0 Anion Gap 15 Estim Creat Clear Calc 79.1 Estimated GFR > 60 Random Glucose 154 H Calcium 9.4 Total Bilirubin 0.8 AST 19 ALT 9 Alkaline Phosphatase 61 B-Natriuretic Peptide 793 H Total Protein 7.3 Albumin 4.2 Urine Color Yellow Urine Appearance Clear Urine pH 5.5 Ur Specific [place] 1.010 Urine Protein Negative Urine Glucose (UA) Negative Urine Ketones Negative Urine Blood Negative Urine Nitrite Negative Ur Leukocyte Esterase Negative COVID-19 ([place]) Negative COVID-19 Clin Com See Note Influenza Type A (MOLLY) Negative Influenza Type B (MOLLY) Negative Influenza A & B Note See Note Imaging Radiologist's Impressions: Impressions Chest X-Ray 05/21/23 04:37 IMPRESSION: Mild bronchial wall thickening suggestive of bronchitis. Assessment and Plan (1) Atrial fibrillation with RVR: Status: Acute (2) Atrial fibrillation, new onset: Status: Acute (3) Chest discomfort: Status: Acute Plan Pt is a 72-year-old male with a PMH significant for?HTN who presents to the ED for evaluation of?a constant chest pressure since last night with associated SOB. Patient be admitted to the hospital under observation on telemetry for evaluation and treatment of new onset AFib with RVR. New onset AFib with RVR Pt with chest pressure, SOB, and palpitations since last night EKG showed AFib with RVR of 145 Has had intermittent similar symptoms since late April Extensive cardiac workup on 05/12/2023 with relatively benign Holter monitor, stress test, and echocardiogram Patient received metoprolol 2.5 mg IV, diltiazem 5 mg IV x2 doses and 30 mg po in ED and converted to sinus rhythm with PACs and HR in 60s Will be started on metoprolol po 25 mg b.i.d., amiodarone 400 mg p.o. b.i.d. Will therapeutic Lovenox at 1 mg/kg Cardiology consult Monitor on telemetry HTN Continue amlodipine Full Code Attending:?Dr. Rivas DVT Prophylaxis: Bria Patient admitted hospital observation on telemetry for evaluation and treatment of new onset AFib with RVR. Pt will receive close monitoring and specialist consultation Time Spent With Patient Time: Total time managing care of this patient today ____ minutes. Quality Stroke Does the patient have a stroke diagnosis?: No VTE Prior VTE?: No VTE Risk Level:: Medical - moderate - high VTE Device Contraindication: Treatment Not Indicated VTE Drug Contraindication: N/A - Med Ordered
[2023-05-21 13:38] LABS: Troponin-I High Sensitivity 269.4 ng/L (<3.5-35.0)
[2023-05-21] MEDS: Amiodarone HCL 200 MG TABLET 400 MG PO ×2 (13:58→22:30)
--- NOTE | 2023-05-21 14:04 | PC.NURSE ---
Pt resting quietly. denies any complaints. Denies pain or SOB. SR continues on tele. Ate lunch. Amio given as charted. Repeat David santacruz made aware
--- NOTE | 2023-05-21 16:47 | PM.CNCAR ---
History of Present Illness History of Present Illness Date of Service: 05/21/23 Requesting physician: Dimitri Rivas Chief complaint: Afib with RVR Narrative: 72-year-old gentleman who is presenting to the ER with chest discomfort and palpitations. He has ruled in for NSTEMI. He was noticed to be in AFib with RVR. He has reverted to sinus rhythm. His ECG is showing significant left ventricular hypertrophy with repolarization changes. High sensitivity troponins are 250. Recently had stress testing done where inferolateral ischemia was noticed as well as transient ischemic dilatation pointing to her multivessel disease. His denying chest discomfort alone and mostly gets fluttering in his chest along with palpitations and chest discomfort. He presented with similar symptoms this time and was noticed to be in AFib with RVR as mentioned above. [facility] Past Medical History Medical History Finger amputee Essential hypertension Surgical History Surgical History History of amputation of finger of both hands H/O hernia repair Social History Social History Household Members: Family Housing: House Patient Tobacco Use Status: Never used Tobacco Smoked in Last 30 Days: No e-Cigarette/Vaping Use: Never Used Use of substances other than those prescribed or required for medical reasons: No Advance Directives: No Advance Directives Information Provided: No service: No Current occupational status: retired Current occupational exposures/hazards: No Cognitive needs: No Hearing needs: No Vision needs: No Meds Allergies Allergy/AdvReac Type Severity Reaction Status Date / Time No Known Allergies Allergy Verified 05/21/23 04:12 Active Medications: Current Medications Acetaminophen (Acetaminophen 325 Mg Tablet) 650 mg PO Q6H PRN PRN Reason: Pain, Mild (Pain Scale 1-3) Amiodarone HCl (Amiodarone Hcl 200 Mg Tablet) 400 mg PO BID GAYLA Amlodipine Besylate (Amlodipine Besylate 5 Mg Tablet) 5 mg PO BEDTIME AGYLA; Protocol Docusate Sodium (Docusate Sodium 100 Mg Capsule) 100 mg PO DAILY PRN PRN Reason: Constipation Enoxaparin Sodium (Enoxaparin Sodium 100 Mg/Ml Syringe) 100 mg 1 mg/kg (100 mg) SUBCUT Q12H [facility] Metoprolol Succinate (Metoprolol Succinate Er 25 Mg Tab.Er.24h) 25 mg PO DAILY GAYLA; Protocol Ondansetron HCl (Ondansetron Hcl 4 Mg/2 Ml Vial) 4 mg IVPUSH Q8H PRN PRN Reason: Nausea and Vomiting Sodium Chloride (0.9 % Sodium Chloride Flush 3 Ml Syringe) 3 ml IVFLUSH QSHIFT [facility] Home Medications Medication Instructions Recorded Confirmed Last Taken Type amlodipine 5 mg tablet 5 mg PO BEDTIME 05/21/23 05/21/23 05/19/23 History Physical Exam Vital Signs: Vital Signs: Last Vital Signs Temp 98.8 F 05/21/23 05:52 Pulse 62 05/21/23 14:00 Resp 18 05/21/23 14:00 BP 135/75 05/21/23 14:00 Pulse Ox 95 05/21/23 14:00 O2 Del Method Room Air 05/21/23 14:00 BMI result Body Mass Index 34.9 GENERAL APPEARANCE: in no acute distress, pleasant. NECK: no carotid bruit, no jugular venous distention. SKIN: no suspicious lesions, warm and dry. HEART: no murmurs, regular rate and rhythm. Bradycardic. LUNGS: clear to auscultation bilaterally. ABDOMEN: soft, nontender. EXTREMITIES: no edema. PERIPHERAL PULSES: equal. NEUROLOGIC: No gross deficits, AAO X 3 Objective Labs and Meds 05/21/23 04:34 05/21/23 04:32 Lab results: Laboratory Results - last 24 hr 05/21/23 05/21/23 05/21/23 04:32 04:34 06:56 WBC 8.6 RBC 5.14 Hgb 15.4 Hct 45.5 MCV 88.5 MCH 30.0 MCHC 33.8 RDW 13.3 Plt Count 254 MPV 9.8 Immature Gran % (Auto) 0.2 Neut % (Auto) 82.6 H Lymph % (Auto) 10.7 L [place] % (Auto) 5.7 Eos % (Auto) 0.5 Baso % (Auto) 0.3 Lymph # (Auto) 0.9 L [place] # (Auto) 0.5 Eos # (Auto) 0.0 Baso # (Auto) 0.0 Abs Immat Gran (auto) 0.02 Absolute Neuts (auto) 7.1 Absolute Nucleated RBC 0.000 Nucleated RBC % (auto) 0.0 PT 12.1 INR 1.0 Sodium 139 Potassium 4.4 Chloride 106 Carbon Dioxide 22 Anion Gap 15 BUN 20 H Creatinine 0.97 Estim Creat Clear Calc 79.1 Estimated GFR > 60 Random Glucose 154 H Calcium 9.4 Total Bilirubin 0.8 AST 19 ALT 9 Alkaline Phosphatase 61 Troponin I High Sens 53.1 H D B-Natriuretic Peptide 793 H Total Protein 7.3 Albumin 4.2 Urine Color Yellow Urine Appearance Clear Urine pH 5.5 Ur Specific [place] 1.010 Urine Protein Negative Urine Glucose (UA) Negative Urine Ketones Negative Urine Blood Negative Urine Nitrite Negative Ur Leukocyte Esterase Negative COVID-19 ([place]) Negative COVID-19 Clin Com See Note Influenza Type A (MOLLY) Negative Influenza Type B (MOLLY) Negative Influenza A & B Note See Note 05/21/23 05/21/23 09:19 12:53 WBC RBC Hgb Hct MCV MCH MCHC RDW Plt Count MPV Immature Gran % (Auto) Neut % (Auto) Lymph % (Auto) [place] % (Auto) Eos % (Auto) Baso % (Auto) Lymph # (Auto) [place] # (Auto) Eos # (Auto) Baso # (Auto) Abs Immat Gran (auto) Absolute Neuts (auto) Absolute Nucleated RBC Nucleated RBC % (auto) PT INR Sodium Potassium Chloride Carbon Dioxide Anion Gap BUN Creatinine Estim Creat Clear Calc Estimated GFR Random Glucose Calcium Total Bilirubin AST ALT Alkaline Phosphatase Troponin I High Sens 150.6 H* D 269.4 H* D B-Natriuretic Peptide Total Protein Albumin Urine Color Urine Appearance Urine pH Ur Specific [place] Urine Protein Urine Glucose (UA) Urine Ketones Urine Blood Urine Nitrite Ur Leukocyte Esterase COVID-19 ([place]) COVID-19 Clin Com Influenza Type A (MOLLY) Influenza Type B (MOLLY) Influenza A & B Note Imaging Radiologist's impression: Impressions Chest X-Ray 05/21/23 04:37 IMPRESSION: Mild bronchial wall thickening suggestive of bronchitis. Assessment and Plan (1) Atrial fibrillation with RVR: Status: Acute (2) Chest discomfort: Status: Acute Plan [age] gentleman presenting with palpitations, chest discomfort and NSTEMI. He was noticed to be in AFib with RVR on admission and since reverting to sinus rhythm his symptoms have improved. His stress testing showing inferolateral ischemia with transient ischemic dilatation. He likely has underlying coronary artery disease. His presentation is mostly due to AFib with RVR and a type 2 event though. I discussed with him about transfer to [facility] and potentially doing a diagnostic angiogram versus an outpatient catheterization any is more in favor of doing an outpatient cardiac catheterization. We will start him on amiodarone 400 mg twice a day for rhythm control strategy. Baby aspirin 81 mg daily. Holding the metoprolol as he is bradycardic when he is not in atrial fibrillation. He is on Lovenox 1 milligram/kilogram. If he stays stable and does not get any further chest discomfort then can be changed apixaban tomorrow. We will arrange an outpatient cardiac catheterization for him. Thank you for allowing me to participate in the care of your patient. Please feel free to contact me if you have any questions. Time Spent With Patient Time: Total time managing care of this patient today ____ minutes. Procedures Date of Service Date of Service: 05/21/23
[2023-05-21] MEDS: 0.9 % Sodium Chloride Flush 3 ML SYRINGE IVFLUSH ×2 (17:59→22:36)
--- NOTE | 2023-05-21 19:12 | PC.NURSE ---
this rn assumed care of pt. pt standing at beside, pt denies SOB, chest pain and dizziness at this time. explained to pt he will be moving to a room upstairs. pt vss.
--- NOTE | 2023-05-21 19:52 | PC.NURSE ---
report [place] [facility] [place]
[2023-05-21] MEDS: amLODIPine Besylate 5 MG TABLET PO (22:31)
[2023-05-22 03:10] VITALS: BP 159/91; PULSE 63; RESP 18; TEMP 36.8; O2SAT 94
[2023-05-22 06:58] LABS: Hematocrit 45.5 % (42.0-52.0); Hemoglobin 14.8 g/dl (14.0-18.0); Mean Corpuscular HGB Conc 32.5 g/dl (31.0-36.0); Mean Corpuscular Hemoglobin 29.6 pg (27.0-33.0); Mean Platelet Volume 10.2 fL (9.4-12.4); Platelet Count 234 X10*3/uL (160-400); Red Cell Distribution Width 13.3 % (11.0-16.0); White Blood Count 6.2 X10*3/uL (4.8-10.8)
[2023-05-22 07:02] VITALS: BP 173/85; PULSE 57; RESP 20; TEMP 36.2; O2SAT 96
[2023-05-22 07:03] LABS: Prothrombin Time 12.3 SEC (11.1-13.3)
--- NOTE | 2023-05-22 07:31 | PC.NURSE ---
pt arrived to unit and oriented to room and staff. NSR on monitor and pt denies all complaints at this time. Fall precautions implemented with pt refusing bed alarm and camera. [employer] called for video alteration worker with pt clearly stating he did not need or want an alteration worker. I do think he could benefit from an alteration worker for complex medical discussions.
[2023-05-22 07:33] LABS: Anion Gap 13 (12-20); Blood Urea Nitrogen 21 mg/dL (9-16); Calcium 8.9 mg/dL (8.4-10.2); Carbon Dioxide 25 mmol/L (22-29); Chloride 108 mmol/L (96-108); Creatinine Clr Calc Pharmacy 85.1; Estimated Glomerular Filt Rate > 60; Glucose Random 96 mg/dL (60-115); Magnesium 2.2 mg/dL (1.6-2.6); Potassium 3.8 mmol/L (3.3-5.1); Sodium 142 mmol/L (135-145)
--- NOTE | 2023-05-22 08:32 | P.PNIM_ITS ---
Subjective Subjective Date of Service: 05/22/23 Interval History: Seen in follow-up for new onset atrial fibrillation with NSTEMI Interval history: Patient hypertensive this morning and last night with SBP in the 170s. Denies any further episodes of chest pain, palpitations, shortness of breath Review of Systems Review of Systems: Yes all other systems are reviewed and are negative Physical Exam 2 Vital Signs: Vital Signs: Last Vital Signs Temp 97.1 F 05/22/23 07:02 Pulse 57 05/22/23 07:02 Resp 20 05/22/23 07:02 BP 173/85 H 05/22/23 07:02 Pulse Ox 96 05/22/23 07:02 O2 Del Method Room Air 05/22/23 07:02 BMI result Body Mass Index 35.6 Constitutional - Awake and Alert, No apparent distress Eyes - PERRLA, EOMI Cardiovascular - S1S2, RRR, No edema Respiratory - Normal lung expansion, Normal respiratory effort, No respiratory distress, CTA bilaterally Extremities - no calf tenderness bilaterally, no swelling Skin - Warm/Dry Neurological - Alert & oriented x3 Psychological - Appropriate affect Objective Data Active Medications Acetaminophen (Acetaminophen 325 Mg Tablet) 650 mg PO Q6H PRN PRN Reason: Pain, Mild (Pain Scale 1-3) Amiodarone HCl (Amiodarone Hcl 200 Mg Tablet) 400 mg PO BID [facility] Last Admin: 05/21/23 22:30 Dose: 400 mg Documented By: SHERIE Amlodipine Besylate (Amlodipine Besylate 5 Mg Tablet) 5 mg PO BEDTIME [facility]; Protocol Last Admin: 05/21/23 22:31 Dose: 5 mg Documented By: SHERIE Aspirin (Aspirin 81 Mg Tab.Chew) 81 mg PO DAILY [facility] Docusate Sodium (Docusate Sodium 100 Mg Capsule) 100 mg PO DAILY PRN PRN Reason: Constipation Enoxaparin Sodium (Enoxaparin Sodium 100 Mg/Ml Syringe) 100 mg 1 mg/kg (100 mg) SUBCUT Q12H [facility] Last Admin: 05/21/23 22:30 Dose: 100 mg Documented By: SHERIE Lisinopril (Lisinopril 10 Mg Tablet) 10 mg PO DAILY [facility]; Protocol Sodium Chloride (0.9 % Sodium Chloride Flush 3 Ml Syringe) 3 ml IVFLUSH QSHIFT [facility] Last Admin: 05/22/23 07:22 Dose: Not Given Documented By: AUGUST Non-Admin Reason: See Note Labs 05/22/23 05:52 05/22/23 05:52 Labs: Laboratory Results - last 24 hr 05/22/23 05:52 MCV 91.0 MCH 29.6 MCHC 32.5 RDW 13.3 Plt Count 234 MPV 10.2 Absolute Nucleated RBC 0.000 Nucleated RBC % (auto) 0.0 PT 12.3 INR 1.0 Anion Gap 13 Estim Creat Clear Calc 85.1 Estimated GFR > 60 Random Glucose 96 Calcium 8.9 Magnesium 2.2 Assessment and Plan Plan Pt is a 72-year-old male with a PMH significant for?HTN who presents to the ED for evaluation of?a constant chest pressure since last night with associated SOB. Patient be admitted to the hospital under observation on telemetry for evaluation and treatment of new onset AFib with RVR. Rates now controlled with intermittent bradycardia. He is hypertensive with SBP 170s. #New onset atrial fibrillation -rate now controlled with intermittent bradycardia -hold on further bb or ccb due to bradycardia -Per cardiology, continue amiodarone 400mg BID -No further chest pain, stop lovenox, initiate Eliquis per cardiology -appreciate cardiology input -last echo 05/12 shows normal LV systolic function, EF 59% with severe septal asymmetric hypertrophy, and grade 3 diastolic dysfunction, increased LV ventricular wall thickness Time Spent With Patient Time: Total time managing care of this patient today ____ minutes. Quality Stroke Does the patient have a stroke diagnosis?: No VTE Prior VTE?: No VTE Risk Level:: Medical - moderate - high VTE Device Contraindication: Treatment Not Indicated VTE Drug Contraindication: N/A - Med Ordered
[2023-05-22] MEDS: Enoxaparin Sodium 100 MG/ML SYRINGE SUBCUT (08:37)
[2023-05-22] MEDS: Aspirin 81 MG TAB.CHEW PO (08:37)
[2023-05-22] MEDS: Amiodarone HCL 200 MG TABLET 400 MG PO (08:37)
[2023-05-22] MEDS: lisinopriL 10 MG TABLET PO (08:40)
--- NOTE | 2023-05-22 08:43 | MHC.CM.PN ---
CM met with Patient at bedside and addressed [place] with him, providing Patient with the original and a copy has been placed on the chart. Patient lives in a house with his and 2 adult children and he required no services nor DME [employer] HE[employer] REPRESENTATIVE. Home/self care is the goal and CM has initiated and will follow for dc planning. PCP is from [facility] in [place].
--- NOTE | 2023-05-22 09:25 | PM.DS ---
DS: Providers Provider Date of Service: 05/22/23 Date of admission: 05/21/23 12:08 Primary care physician: Unknown Physician Admitting clinician: David Jerez Attending physician on admission: Renu Parker Consults: 05/21/23 12:14 Consult to Cardiology Routine Consulting Provider: [facility] [place] [facility] Reason for consultation: New onset AFib with RVR [facility]: Renu Parker DS: Diagnosis Discharge Diagnosis (1) Atrial fibrillation with RVR: Status: Acute (2) Chest discomfort: Status: Acute DS: Summary Hospital Course Hospital Course: HPI on admission by David Jerez 05/21/23: Chief Complaint: Chest pressure Pt is a 72-year-old male with a PMH significant for?HTN who presents to the ED for evaluation of?a constant chest pressure since last night with associated SOB. Patient states he began experiencing chest pressure/tightness at approximately 21:00 last night. Chest pressure was left-sided, centered over his heart, nonradiating. Was constant with no clear exacerbating or alleviating factors. Patient was sitting in his chair at the time of symptom onset. Patient also noted his heart felt like it was ?jumping? and beating very fast. Also experienced shortness of breath, difficulty breathing, and fatigue. Patient denies cough, increased swelling in his legs, or experiencing SOB outside of last night. Patient states he is usually quite active and has had no recent reduction in his level of activity. Also denies nausea, vomiting, abdominal pain. Of note, patient has been experiencing palpitations/irregular heartbeat and chest pressure for the past few months. Initially saw his primary care on 03/10/2023 for the symptoms to sent him to the ED for evaluation of irregular heartbeat. In the ED was noted to have PACs on EKG, and was set up with Cardiology outpatient follow-up. He wore an extended Holter monitor for 3 days which was relatively benigh, showing underlying sinus rhythm with frequent supraventricular ectopy with a burden of 5.5%, but with no significant pauses or AV blocks. Exercise stress test on 05/12/2023 was stopped due to hypertensive response and suboptimal HR with mild SOB, no chest pain, and isolated PACs without EKG changes. Then switched to a pharmacological stress test that was also benign: patient experienced no anginal symptoms with isolated PACs and PVCs with elevated BP at start and no diagnostic EKG for ischemia. Patient also underwent echocardiogram on 05/12/2023 that showed normal LV systolic function with EF of 59% with moderately increased LV wall thickness and severe septal asymmetric hypertrophy and grade 3 diastolic dysfunction with no obvious valvular pathology. In the ED patient was afebrile but tachycardic up to 140s, and slightly hypertensive up to 147/88. Labs were significant for initial troponin 53.1 with repeat elevated at 150.6, and BNP 793 (previous 232). H&H stable, no leukocytosis. Coags WNL. Electrolytes WNL. Renal function baseline. Hepatic function baseline. UA negative for UTI. CXR showed mild bronchial wall thickening suggestive of bronchitis. Initial EKG demonstrated AFib with RVR [address] abnormalities. Repeat EKG showed sinus rhythm with PACs and continued ST abnormalities. Pt was treated with metoprolol, furosemide, diltiazem p.o. and IV, and therapeutic Lovenox. Pt will be admitted to the hospital under observation on telemetry for treatment for evaluation of new onset AFib with RVR. Hospital course: Patient admitted with new onset atrial fibrillation with RVR and NSTEMI. Troponin 53.1 -->150.6--> 269. Rates controlled in the ED with IV metoprolol and diltiazem, change to p.o. metoprolol. Cardiology consulted. NSTEMI likely demand related to rapid ventricular rate. Patient initiated on therapeutic Lovenox 1 milligram/kilogram. Given resolution of chest pain, patient will be transitioned to Eliquis with chads Vasc score of 3. He has no contraindications to anticoagulation. Patient did convert out of atrial fibrillation and has been maintaining regular rhythm. Patient did develop mild bradycardia secondary to beta-javier use which was discontinued. Cardiology recommended initiation of amiodarone 400 mg twice daily. However, patient be heme hypertensive to 173/85. Lisinopril 10 mg daily was added to the amlodipine 5 mg he is already taking at home. Cardiology did discuss NSTEMI with [facility] who is recommending outpatient cardiac catheterization. Patient will be discharged on 400 mg amiodarone twice daily x2 weeks, then decrease to 200 mg daily. Continue eliquis twice daily, educated on risk of bleeding. Follow up with cardiology in the office in 2 weeks and for outpatient cardiac catheterization as scheduled by cardiology. Follow up with PCP soon. Status at Discharge Functional status at discharge: independent ambulation Overall status at discharge: patient is back to baseline Time Spent with Patient Time attestation: Total time managing care of this patient today ____ minutes. Discharge coordination time: Greater than 30 minutes Quality: Safe Use of Opioids Does Pt have an Active Cancer Diagnosis on the Problem List?: No Quality: Stroke Does the patient have a stroke diagnosis?: No Physical Exam Vital Signs: Vital Signs: Last Vital Signs Temp 97.1 F 05/22/23 07:02 Pulse 57 05/22/23 07:02 Resp 20 05/22/23 07:02 BP 173/85 H 05/22/23 07:02 Pulse Ox 96 05/22/23 07:02 O2 Del Method Room Air 05/22/23 07:02 BMI result Body Mass Index 35.6 DS: Data Data Completed and Pending Labs on day of discharge: Laboratory Results - last 24 hr 05/21/23 05/21/23 05/22/23 09:19 12:53 05:52 WBC 6.2 RBC 5.00 Hgb 14.8 Hct 45.5 MCV 91.0 MCH 29.6 MCHC 32.5 RDW 13.3 Plt Count 234 MPV 10.2 Absolute Nucleated RBC 0.000 Nucleated RBC % (auto) 0.0 PT 12.3 INR 1.0 Sodium 142 Potassium 3.8 Chloride 108 Carbon Dioxide 25 Anion Gap 13 BUN 21 H Creatinine 0.91 Estim Creat Clear Calc 85.1 Estimated GFR > 60 Random Glucose 96 Calcium 8.9 Magnesium 2.2 Troponin I High Sens 150.6 H* D 269.4 H* D Discharge Plan Discharge Anticipated Discharge Date/Time: 05/22/23 09:17 Patient Disposition: Home, Self-Care Discharge Diagnosis: new onset atrial fibrillation, nstemi Referrals: Timothy Pink MD [Physician] - 1 Week (afib rvr, nstemi) Physician,Unknown J [Primary Care Provider] - 1 Week Discharge Medications: New Eliquis 5 mg Tablet 5 mg PO BID Qty: 60 3RF amiodarone 200 mg Tablet See Rx Instructions .ROUTE .COMPLEX Qty: 90 0RF Rx Instructions: Take 2 tabs (400mg) twice daily x14 days, then take 1 tab (200mg) daily lisinopril 10 mg Tablet 10 mg PO DAILY Qty: 30 0RF Protocol: Hold for SBP< HOLD for SBP < : 90 aspirin 81 mg Tablet,Chewable 81 mg PO DAILY Qty: 30 2RF Continued amlodipine 5 mg tablet 5 mg PO BEDTIME Discharge Orders: Discharge Order (Routine); Ordered 05/22/23 Ordered By: Renu Parker Diet: Advance to usual diet Activity on Discharge: As tolerated Stand Alone Forms: Patient Portal Discharge page Care Plan Goals: Control heart rates, prevent stroke Follow up with cardiology for cardiac catheterization Health Concerns: Atrial fibrillation with rapid ventricular rate NSTEMI Plan of Treatment: Atrial fibrillation with rapid ventricular rate -rate controlled on discharge -continue amiodarone 400 mg twice daily x2 weeks, then take 200 mg twice daily -avoid rate lowering medications due to bradycardia (low heart rate) -take Eliquis 5 mg twice daily which will help prevent stroke. This is a blood thinner. Monitor for any significant bleeding -follow-up with Cardiology soon NSTEMI -you experienced a heart attack. It is possible this is secondary to the rapid rate associated with atrial fibrillation. -continue on aspirin daily -follow-up with Cardiology soon Assessment: See above Discharge Date/Time: 05/22/23 11:30
--- NOTE | 2023-05-22 09:38 | MHC.CM.PN ---
Patient has been medically cleared for dc to home today, self care.
--- NOTE | 2023-05-22 09:51 | MHC.CM.PN ---
DC has been canceled.
[2023-05-22 10:56] VITALS: BP 175/91; PULSE 62; RESP 20; TEMP 36.1; O2SAT 95
--- NOTE | 2023-05-22 10:56 | MHC.CM.PN ---
Patient has been medically cleared for dc to home today, self care.
== END 2023-05-22 11:30 | disposition home or self-care (01) | DRG 282 ==
LOC: HO.ED 08:07 → HO.EDOVER 12:41 → HO.IMC 19:03
PROVIDERS: Student in an Organized Health Care Education/Training Program; Admitting Provider Student in an Organized Health Care Education/Training Program; Emergency Provider Emergency Medicine; Visit Provider Internal Medicine
DX: I48.91 Unspecified atrial fibrillation (principal); I21.A1 Myocardial infarction type 2; I10 Essential (primary) hypertension; Z20.822 Contact with and (suspected) exposure to COVID-19; Z79.899 Other long term (current) drug therapy
CPT/HCPCS: 36415; 71045; 80048; 80053; 81003; 83735; 83880; 84484; 85025; 85027; 85610; 87502; 87635; 93005; 99285; J1650; J1940

== ENCOUNTER → 2023-05-21 12:08 | Outpatient (BNV) | payer MEDICARE, SELFPAY | PROVIDERS: Admitting Provider Student in an Organized Health Care Education/Training Program; Emergency Provider Emergency Medicine; Visit Provider Student in an Organized Health Care Education/Training Program | DX: I48.91 Unspecified atrial fibrillation (principal); R07.89 Other chest pain | CPT/HCPCS: 99222; 99239 ==

== ENCOUNTER → 2023-05-21 12:08 | Outpatient (BNV) | payer MEDICARE, SELFPAY | PROVIDERS: Admitting Provider Student in an Organized Health Care Education/Training Program; Emergency Provider Emergency Medicine; Visit Provider Internal Medicine Cardiovascular Disease | DX: I48.91 Unspecified atrial fibrillation (principal); R07.89 Other chest pain | CPT/HCPCS: 99222 ==

== ENCOUNTER → 2023-06-04 23:59 | Outpatient (BNV) | payer MEDICARE, SELFPAY | PROVIDERS: Visit Provider Internal Medicine Cardiovascular Disease | DX: I20.8 Other forms of angina pectoris (principal); R07.9 Chest pain, unspecified; R93.1 Abnormal findings on diagnostic imaging of heart and coronary circulation | CPT/HCPCS: 93458; 99152 ==

== ENCOUNTER 2023-06-17 07:32 | Outpatient (AMB) | payer MEDICARE, SELFPAY ==
--- NOTE | 2023-06-17 07:39 | MHC.PC.OV ---
Vital Signs 06/17/23 07:40 Weight 224 lb BP 150/92 H Blood Pressure Location Rt brachial Position Sitting Pulse 70 Pulse Source Pulse Oximeter Pulse Oximetry (%) 92 Oxygen Delivery Method Room Air Intake Visit Reasons: Est. Care/ Requesting PE Allergies lisinopril Adverse Reaction (Intermediate, Verified 06/17/23 08:10) Cough olmesartan Adverse Reaction (Verified 06/17/23 07:54) Headache Medication List - Last Reconciled 06/17/23 by Shaista Courtney MD amiodarone Take 2 tabs (400mg) twice daily x14 days, then take 1 tab (200mg) daily amlodipine 10 mg PO DAILY apixaban (Eliquis) 5 mg PO BID valsartan 160 mg PO DAILY Tobacco use date assessed: 02/24/23 Fall risk assessment: No Falls in past year Last assessed Fall Risk: 06/17/23 Dental Screening Dental Screen Date: 06/17/23 Did you have a dental visit in the last 12 months?: No Did you have a dental problem in the last 6 months where you did not have access to dental care?: No Was dental information given to patient?: Patient has dentist HPI Est. 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 PMH status significant for longstanding hypertension poorly controlled due to patient noncompliance with medications. He had an episode of AFib with RVR last month and was hospitalized at [place]. Patient was treated with initial better blockers but developed bradycardia follow-up by loading with amiodarone and started Eliquis. Patient had elevation in troponin levels and underwent coronary angiogram which was negative for significant coronary arteries stenosis. Patient denies palpitations or chest pains, PND orthopnea. He has been taking amiodarone only if his heart rate is above 60 as instructed by his interactive project manager?. Patient stopped Eliquis 2 days ago because he had increased bleeding after cutting his left hand. Patient complains of cough since started taking lisinopril. [facility] Medical History (Updated 06/17/23 @ 09:46 by Shaista Courtney MD) Finger amputee Essential hypertension Surgical History History of amputation of finger of both hands H/O hernia repair Social History Household Members: Children Housing: House Do you presently have visiting nurse or other home services: No Patient Tobacco Use Status: Never used Tobacco e-Cigarette/Vaping Use: Never Used service: No Current occupational status: retired Current occupational exposures/hazards: No Cognitive needs: No Hearing needs: No Vision needs: No Questionnaire Thrive Questionnaire Date Thrive assessed: 05/22/23 JOCELYNE-7 AMB Questionnaire JOCELYNE-7 Date JOCELYNE - 7 assessed: 02/24/23 Source: Developed by Drs. Rick Capone, Kristen Sanchez, Jacky Miller and colleagues, with an educational latrice from [employer]. Review of Systems Const All systems reviewed & are unremarkable except as noted in HPI and below Reports no additional complaints Eyes Reports no additional complaints ENT Reports no additional complaints Card Reports no additional complaints Resp Reports no additional complaints GI Reports no additional complaints Reports no additional complaints Musc Reports no additional complaints Physical exam (Primary Care) Vital Signs: Last Vital Signs Pulse 70 06/17/23 07:40 BP 150/92 H 06/17/23 07:40 Pulse Ox 92 06/17/23 07:40 Oxygen Delivery Method Room Air 06/17/23 07:40 Tobacco/Smoking Status: Tobacco use Status Tobacco use date assessed 02/24/23 06/17/23 07:43 Patient Tobacco Use Status Never used Tobacco 06/17/23 07:43 e-Cigarette/Vaping Use Never Used 06/17/23 07:43 Thrive Assessment: Date of Thrive Assessment Date Thrive assessed 05/22/23 06/17/23 07:43 Const General: no acute distress HENMT Head: Yes normal to inspection Ears: hearing grossly normal bilaterally Face and sinus: Yes normal facial exam Eyes General: appearance normal, both eyes and all related structures Neck Neck: Yes no lymphadenopathy and Yes supple Resp Effort & Inspection: normal respiratory effort Auscultation: clear to auscultation bilaterally Cardio Rhythm: regular rhythm Heart sounds: S1 normal heart sound present and S2 normal heart sound present GI Inspection: Yes normal to inspection Palpation (GI): Soft to palpation Percussion: Yes normal to percussion Auscultation: normal bowel sounds Assessment and Plan Assessment & Plan (1) Atrial fibrillation with RVR: Comment: Hospitalized at [place] 06/01, cardiovertted on BB/Cardizem, bradycardia on BB, started on Amiodarone, takes prn only Code(s): I48.91 - Unspecified atrial fibrillation Plan: Patient was advised to restart Eliquis and the risk of CVA due to paroxysmal AFib discussed with the patient. Because of excessive bleeding he was advised to stop aspirin because his cardiac catheterization was normal. He has an appointment Cardiology tomorrow and will discuss treatment with amiodarone (2) Elevated troponin: Comment: due to A FIB with RVR, cardiac cath no significant coronary artery stenosis 06/04/23 Code(s): R79.89 - Other specified abnormal findings of blood chemistry (3) Essential hypertension: Comment: POORLY CONTROLLED DUE TO NONCOMPLIANCE, LISINOPRIL CAUSES COUGH, OLMESARTAN WITH HYDROCHLOROTHIAZIDE CAUSED HEADACHES Code(s): I10 - Essential (primary) hypertension Plan: noncompliance with hypertension treatment discussed with the patient. Patient was made aware of increased risks of CVA ,LA, renal failure and . Patient was advised to continue 10 mg of amlodipine and lisinopril will be changed to valsartan 160 mg. Low-sodium diet regular physical activity discussed with the patient. he will follow-up in 1 week for blood pressure check (4) Annual physical exam: Code(s): Z00.00 - Encounter for general adult medical examination without abnormal findings Plan: Well-balanced diet and regular physical activity discussed with the patient. He declined colonoscopy and Cologuard Medications: New valsartan 160 mg PO DAILY 30 tabs 0RF amlodipine 10 mg PO DAILY 30 tabs 0RF Changed From amiodarone Take 2 tabs (400mg) twice daily x14 days, then take 1 tab (200mg) daily 90 tabs 0RF To amiodarone 200 mg; 90 tabs 0RF Refilled amiodarone Take 2 tabs (400mg) twice daily x14 days, then take 1 tab (200mg) daily 90 tabs 0RF apixaban (Eliquis) 5 mg PO BID 60 tabs 3RF Discontinued lisinopril Discontinued Reason: Doctor's Order 10 mg See Protocol PO DAILY 30 tabs 0RF aspirin Discontinued Reason: Doctor's Order 81 mg PO DAILY 30 tabs 2RF Coding Level of Care Code Est Pt Prev Care >65y(97986) Diagnoses Atrial fibrillation with RVR I48.91 Elevated troponin R79.89 Essential hypertension I10 Annual physical exam Z00.00
[2023-06-17 07:40] VITALS: BP 150/92; PULSE 70; O2SAT 92
== END 2023-06-17 08:37 | disposition home or self-care (01) ==
PROVIDERS: Visit Provider Internal Medicine
DX: I48.91 Unspecified atrial fibrillation (principal); R79.89 Other specified abnormal findings of blood chemistry; I10 Essential (primary) hypertension; Z00.00 Encounter for general adult medical examination without abnormal findings
CPT/HCPCS: 99397

== ENCOUNTER 2023-06-18 08:35 | Outpatient (AMB) | payer MEDICARE, SELFPAY ==
--- NOTE | 2023-06-18 09:57 | MHC.OFFVIS ---
Intake Vital Signs 06/18/23 09:58 Height 5 ft 7 in Weight 224 lb 13.944 oz BMI 35.2 BP 140/82 H Blood Pressure Location Lt brachial Position Sitting Pulse 56 Intake Visit Reasons: Follow up post cardiac cath Basic Acoustic Analyst Required: No Operations Dispatcher: Operations Dispatcher Present Accompanied by: Daughter Allergies lisinopril Adverse Reaction (Intermediate, Verified 06/18/23 10:00) Cough olmesartan Adverse Reaction (Verified 06/18/23 10:00) Headache Medication List - Last Reconciled 06/18/23 by Gwen Dougherty NP-C amiodarone 200 mg; amlodipine 10 mg PO DAILY apixaban (Eliquis) 5 mg PO BID valsartan 160 mg PO DAILY HPI Follow up post cardiac cath HPI Details Edmund is a 72-year-old male with past medical history of hypertension who was recently seen in cardiology consult for chest discomfort and irregular heartbeat. Outpatient testing including echocardiogram, nuclear stress test and Holter monitor were ordered. He then was admitted to [facility] with chest discomfort, noted to have new finding of atrial fibrillation. His troponin was elevated and EKG abnormal. He was transferred ported to [facility] where he underwent cardiac catheterization showing no significant coronary artery disease. Today he reports he has been doing well since his hospital discharge. He denies any recurrent chest discomfort at rest or with activity. He denies having shortness of breath, palpitations, lightheadedness, presyncope, syncope, falls. No PND, orthopnea or edema. He is taking Eliquis without interruption. No bleeding issues reported. He has been walking slowly 3-4 miles a day. Daughter is present. [facility] Medical History Finger amputee Essential hypertension Surgical History History of amputation of finger of both hands H/O hernia repair Social History Household Members: Children Housing: House Do you presently have visiting nurse or other home services: No Patient Tobacco Use Status: Never used Tobacco e-Cigarette/Vaping Use: Never Used service: No Current occupational status: retired Current occupational exposures/hazards: No Cognitive needs: No Hearing needs: No Vision needs: No Review of Systems Const All systems reviewed & are unremarkable except as noted in HPI and below ENT Denies dizziness Card Denies chest pain, Denies chest pain at rest, Denies chest pain with activity, Denies rapid heart rate, Denies pedal edema, Denies edema, Denies leg edema, Denies lightheadedness, Denies palpitations, Denies dyspnea, Denies dyspnea on exertion and Denies orthopnea Resp Denies cough, Denies dyspnea and Denies dyspnea on exertion GI Denies hematochezia and Denies change in stool character Musc Denies abnormal gait, Denies limited range of motion, Denies muscle cramps, Denies muscle weakness, Denies numbness, Denies radiating pain into limb, Denies stiffness and Denies tingling Neuro Denies abnormal gait, Denies dizziness, Denies numbness and Denies tingling Endo Denies palpitations Physical Exam Vital Signs: Last Vital Signs Pulse 56 06/18/23 09:58 BP 140/82 H 06/18/23 09:58 BMI result Body Mass Index 35.2 Const General: cooperative, healthy appearing, comfortable and no acute distress Orientation/consciousness: patient oriented x3 Neck Neck: Yes normal visual inspection Resp Effort & Inspection: normal respiratory effort Auscultation: clear to auscultation bilaterally, no crackles, no rales, no rhonchi and no wheezes Cardio Jugular venous distension: no JVD Rate: regular rate Rhythm: regular rhythm Heart sounds: S1 normal heart sound present, S2 normal heart sound present, no murmurs and no rubs Neuro General: patient oriented x3 Extrem Other: +1 bilateral ankle edema General: Yes normal to inspection and No no pedal edema Psych Appearance: grossly normal Mental Status: mental status grossly normal Speech and movement: Normal speech and movement present Office Procedures EKG Details: Today read by me, sinus bradycardia, ST and T-wave abnormality lateral leads, unchanged from prior EKG, rate 56, QTC 414 millisecond [id number], Complete Assessment & Plan Assessment & Plan (1) Atrial fibrillation with RVR: Comment: Hospitalized at [place] 06/01, cardiovertted on BB/Cardizem, bradycardia on BB, started on Amiodarone, takes prn only Code(s): I48.91 - Unspecified atrial fibrillation Plan: New finding of atrial fibrillation at time of hospital admission 05/21/2023. He was treated with heart rate control and did convert back to sinus rhythm. He was discharged with amiodarone loading dose to be followed by 200 mg daily and Eliquis 5 mg b.i.d. for anticoagulation. A Holter monitor had been done prior to his admission on 05/12/2023 for 3 days showing sinus rhythm, average heart rate 64, frequent SVT, 5.5% of time, occasional PVCs with one 7 beat NSVT. An echocardiogram was done 05/12/2023 showing EF 59%, moderate LVH, grade 3 diastolic dysfunction, normal valves, ascending aorta 4.4 cm. Today he reports he has been feeling well with no shortness of breath or heart palpitations. EKG done today showing sinus bradycardia, ST and T-wave abnormalities suggesting lateral ischemia verses LVH with repolarization abnormality, rate 56, overall no change from last EKG. Pulse is regular on examination. At present will have him continue on amiodarone. Will check with Dr. Pink regarding further AFib management, as amiodarone should not be long-term. Will be checking labs in 1 week including CMP and TSH. Cardiology follow-up in 6 weeks, sooner if needed (2) Essential hypertension: Comment: POORLY CONTROLLED DUE TO NONCOMPLIANCE, LISINOPRIL CAUSES COUGH, OLMESARTAN WITH HYDROCHLOROTHIAZIDE CAUSED HEADACHES Code(s): I10 - Essential (primary) hypertension Plan: Reported history of hypertension, uncontrolled. On last visit he told me home blood pressure is typically 160 systolic. He was not taking medications consistently. He prefered to use Valerian root which helps him relax and he says brings his blood pressure down. Following fast visit he was instructed to take amlodipine 5 mg daily. He then was admitted to [facility] as above. He was started on valsartan 160 mg daily. Amlodipine had been increased up to 10 mg daily. Blood pressure remains elevated today, 152/86 when checked by me. With his dilated ascending aorta, LVH and diastolic dysfunction he needs better blood pressure control. He does have mild bilateral lower leg edema. Will continue amlodipine at current dose. Continue valsartan and will add Aldactone 25 mg daily. Plan for labs in 1 week as above. Cardiology follow-up 6 weeks (3) Chest discomfort: Code(s): R07.89 - Other chest pain Plan: Prior reports of chest discomfort. Could be related to his atrial fibrillation as that was part of his presenting symptom. He did undergo a nuclear stress test prior to admission on 05/12/2023 which did show mild inferior lateral ischemia. When hospitalized was noted he had elevated troponins and abnormal findings on his EKG. He was transferred to [facility] where he underwent cardiac catheterization on 06/04/2023 showing left main normal, lad, left circumflex and RCA each with minimal luminal irregularities. Test results reviewed with him in detail. Chest discomfort is not related to angina. Today he reports no chest discomfort since his hospital discharge. (4) PAC (premature atrial contraction): Code(s): I49.1 - Atrial premature depolarization Plan: Holter monitor as above showing frequent PACs. He then had atrial fibrillation. He is now on amiodarone. (5) S/P cardiac cath: Comment: 06/04/2023, left main normal, lad, left circumflex and RCA each with minimal luminal irregularities Code(s): Z98.890 - Other specified postprocedural states (6) CHF (congestive heart failure): Code(s): I50.9 - Heart failure, unspecified Plan: Mild heart failure during last hospitalization. His echo prior to admit did show grade 3 diastolic dysfunction. He is is at high risk for fluid retention. He does not appear fluid overloaded on examination today. He does have some mild bilateral lower leg edema which could be from amlodipine. Will be starting on low-dose Aldactone. Orders: Orders TSH reflex Free T4 Today I48.91 - Unspecified atrial fibrillation Comprehensive Met. Panel Today I50.9 - Heart failure, unspecified Medications: New spironolactone (Aldactone) 25 mg PO DAILY 30 tabs 3RF Coding Level of Care Code Est Pt Level 4 (24808) Diagnoses Atrial fibrillation with RVR I48.91 Essential hypertension I10 Chest discomfort R07.89 PAC (premature atrial contraction) I49.1 S/P cardiac cath Z98.890 CHF (congestive heart failure) I50.9 CPT Codes EKG - CPT: [id number], Complete ([id number]) Time Spent (min) 28
[2023-06-18 09:58] VITALS: BP 140/82; PULSE 56; BMI 35.2
== END 2023-06-18 11:09 | disposition home or self-care (01) ==
PROVIDERS: PCP Internal Medicine; Visit Provider Nurse Practitioner Family
DX: I48.91 Unspecified atrial fibrillation (principal); I10 Essential (primary) hypertension; R07.89 Other chest pain; I49.1 Atrial premature depolarization; Z98.890 Other specified postprocedural states; I50.9 Heart failure, unspecified
CPT/HCPCS: 93010; 99214

== ENCOUNTER → 2023-06-18 08:35 | Outpatient (BNVA) | payer MEDICARE, SELFPAY | PROVIDERS: PCP Internal Medicine; Visit Provider Nurse Practitioner Family | DX: I48.91 Unspecified atrial fibrillation (principal); I11.0 Hypertensive heart disease with heart failure; I50.9 Heart failure, unspecified; I49.1 Atrial premature depolarization; R07.89 Other chest pain; Z98.890 Other specified postprocedural states | CPT/HCPCS: 93005; 99212 ==

== ENCOUNTER 2023-06-24 07:21 | Outpatient (REF) | payer MEDICARE, SELFPAY ==
[2023-06-24 11:57] LABS: Alanine Aminotransferase 17 U/L (0-40); Albumin Level 4.1 g/dL (3.5-5.0); Alkaline Phosphatase 69 U/L (39-117); Anion Gap 11 (12-20); Aspartate Amino Transferase 14 U/L (5-37); Bilirubin Total 0.5 mg/dL (0.0-1.0); Blood Urea Nitrogen 20 mg/dL (9-16); Calcium 9.5 mg/dL (8.4-10.2); Carbon Dioxide 28 mmol/L (22-29); Chloride 105 mmol/L (96-108); Estimated Glomerular Filt Rate > 60; Glucose Random 100 mg/dL (60-115); Potassium 4.3 mmol/L (3.3-5.1); Sodium 140 mmol/L (135-145); Total Protein 7.3 g/dL (6.5-8.0)
[2023-06-24 12:16] LABS: TSH reflex Free T4 3.45 uIU/mL (0.32-4.0)
== END 2023-06-24 07:22 | disposition home or self-care (01) ==
LOC: HO.WFDLDS 07:21
PROVIDERS: Visit Provider Nurse Practitioner Family
DX: I48.91 Unspecified atrial fibrillation (principal); G47.30 Sleep apnea, unspecified; I50.9 Heart failure, unspecified
CPT/HCPCS: 36415; 80053; 84443

== ENCOUNTER 2023-06-24 13:16 | Outpatient (AMB) | payer MEDICARE, SELFPAY ==
--- NOTE | 2023-06-24 14:03 | MHC.PC.OV ---
Vital Signs 06/24/23 14:04 Weight 223 lb BP 120/80 Blood Pressure Location Lt brachial Position Sitting Pulse 73 Pulse Source Pulse Oximeter Pulse Oximetry (%) 93 Oxygen Delivery Method Room Air Intake Visit Reasons: 1 week follow up Allergies lisinopril Adverse Reaction (Intermediate, Verified 06/18/23 10:00) Cough olmesartan Adverse Reaction (Verified 06/18/23 10:00) Headache Tobacco use date assessed: 02/24/23 HPI 1 week follow up HPI Details Patient presents for the follow-up on hypertension and episode of AFib. Patient denies recurring chest pain or palpitations. Amlodipine was increased to 10 mg and valsartan 160 mg was started a week ago and then spironolactone 25 mg was added the following day. Patient has been tolerating medications well so far. He restarted Eliquis and has been taking amiodarone. [facility] Medical History Finger amputee Essential hypertension Surgical History History of amputation of finger of both hands H/O hernia repair Social History Household Members: Children Housing: House Do you presently have visiting nurse or other home services: No Patient Tobacco Use Status: Never used Tobacco e-Cigarette/Vaping Use: Never Used service: No Current occupational status: retired Current occupational exposures/hazards: No Cognitive needs: No Hearing needs: No Vision needs: No Questionnaire Thrive Questionnaire Date Thrive assessed: 05/22/23 JOCELYNE-7 AMB Questionnaire JOCELYNE-7 Date JOCELYNE - 7 assessed: 02/24/23 Source: Developed by Drs. Rick Capone, Kristen Sanchez, Jacky Miller and colleagues, with an educational latrice from [employer]. Review of Systems Const All systems reviewed & are unremarkable except as noted in HPI and below Reports no additional complaints Eyes Reports no additional complaints ENT Reports no additional complaints Card Reports no additional complaints Resp Reports no additional complaints GI Reports no additional complaints Reports no additional complaints Physical exam (Primary Care) Vital Signs: Last Vital Signs Pulse 73 06/24/23 14:04 BP 120/80 06/24/23 14:04 Pulse Ox 91 L 11/15/23 14:04 Oxygen Delivery Method Room Air 06/24/23 14:04 Tobacco/Smoking Status: Tobacco use Status Tobacco use date assessed 02/24/23 06/24/23 14:04 Patient Tobacco Use Status Never used Tobacco 06/24/23 14:04 e-Cigarette/Vaping Use Never Used 06/24/23 14:04 Thrive Assessment: Date of Thrive Assessment Date Thrive assessed 05/22/23 06/24/23 14:04 Const General: no acute distress Neck Neck: Yes supple Resp Effort & Inspection: normal respiratory effort Auscultation: clear to auscultation bilaterally Cardio Rhythm: regular rhythm Heart sounds: S1 normal heart sound present and S2 normal heart sound present GI Inspection: Yes normal to inspection Palpation (GI): Soft to palpation Extrem Other: Trace pitting edema bilaterally Assessment and Plan Assessment & Plan (1) Essential hypertension: Comment: POORLY CONTROLLED DUE TO NONCOMPLIANCE, LISINOPRIL CAUSES COUGH Code(s): I10 - Essential (primary) hypertension Plan: Patient will continue 10 mg of amlodipine, 160 mg of valsartan and 25 mg of spironolactone. Potassium level was 4.3 today. Patient will have repeat basic metabolic panel in 2 weeks to monitor electrolytes. Sleep study will be obtained to evaluate for obstructive sleep apnea. He will follow-up in 1 month. (2) Atrial fibrillation with RVR: Comment: Hospitalized at [place] 06/01, cardioverted on BB/Cardizem, bradycardia on BB, started on Amiodarone, takes prn only Code(s): I48.91 - Unspecified atrial fibrillation Plan: Continue amiodarone and Eliquis, follow-up with Cardiology (3) Atrial fibrillation, new onset: Code(s): I48.91 - Unspecified atrial fibrillation Orders: Orders RT home sleep study Today G47.30 - Sleep apnea, unspecified, I48.91 - Unspecified atrial fibrillation Lipid Panel 2 Weeks I48.91 - Unspecified atrial fibrillation, I50.9 - Heart failure, unspecified Basic Metabolic Panel 2 Weeks I10 - Essential (primary) hypertension, I50.9 - Heart failure, unspecified B Type Natriuretic Peptide 2 Weeks I48.91 - Unspecified atrial fibrillation, I50.9 - Heart failure, unspecified Medications: Refilled apixaban (Eliquis) 5 mg PO BID 180 tabs 3RF amlodipine 10 mg PO DAILY 90 tabs 0RF valsartan 160 mg PO DAILY 90 tabs 0RF Coding Level of Care Code Est Pt Level 4 (83000) Diagnoses Essential hypertension I10 Atrial fibrillation with RVR I48.91 Atrial fibrillation, new onset I48.91
[2023-06-24 14:04] VITALS: BP 120/80; PULSE 73; O2SAT 93
== END 2023-06-24 14:34 | disposition home or self-care (01) ==
PROVIDERS: PCP Internal Medicine; Visit Provider Internal Medicine
DX: I10 Essential (primary) hypertension (principal); I48.91 Unspecified atrial fibrillation
CPT/HCPCS: 99214

== ENCOUNTER 2023-07-23 11:04 | Outpatient (AMB) | payer MEDICARE, SELFPAY ==
[2023-07-23 11:07] VITALS: BP 125/78; PULSE 68; O2SAT 97; BMI 35.2
--- NOTE | 2023-07-23 11:07 | A.OFFPC_ITS ---
Vital Signs 07/23/23 11:07 Height 5 ft 7 in Weight 225 lb BMI 35.2 BP 125/78 Blood Pressure Location Lt brachial Position Sitting Pulse 68 Pulse Source Pulse Oximeter Pulse Oximetry (%) 97 Oxygen Delivery Method Room Air Intake Visit Reasons: 1 Month F/U Intake Note: Pt is here today for 1 month follow up visit. Allergies lisinopril Adverse Reaction (Intermediate, Verified 07/23/23 11:20) Cough olmesartan Adverse Reaction (Verified 07/23/23 11:20) Headache Medication List - Last Reconciled 07/23/23 by Shaista Courtney MD amiodarone 200 mg; amlodipine 10 mg PO DAILY apixaban (Eliquis) 5 mg PO BID spironolactone (Aldactone) 25 mg PO DAILY valsartan 160 mg PO DAILY Tobacco use date assessed: 07/23/23 Dental Screening Dental Screen Date: 07/23/23 Did you have a dental visit in the last 12 months?: Yes Did you have a dental problem in the last 6 months where you did not have access to dental care?: No Was dental information given to patient?: Patient has dentist HPI 1 Month F/U HPI Details Patient presents for the follow-up of hypertension AFib stable on meds. [facility] Medical History Finger amputee Essential hypertension Surgical History History of amputation of finger of both hands H/O hernia repair Social History Household Members: Children Housing: House Do you presently have visiting nurse or other home services: No Comment: patient refused alarm and camera, states he will call. has urinal at bedsid Patient Tobacco Use Status: Never used Tobacco e-Cigarette/Vaping Use: Never Used service: No Current occupational status: retired Current occupational exposures/hazards: No Cognitive needs: No Hearing needs: No Vision needs: No Questionnaire Thrive Questionnaire Date Thrive assessed: 05/22/23 JOCELYNE-7 AMB Questionnaire JOCELYNE-7 Date JOCELYNE - 7 assessed: 02/24/23 Source: Developed by Drs. Rick Capone, Kristen B.Jacky Frank and colleagues, with an educational latrice from [employer]. Review of Systems Const All systems reviewed & are unremarkable except as noted in HPI and below Reports no additional complaints Eyes Reports no additional complaints ENT Reports no additional complaints Card Reports no additional complaints Physical exam (Primary Care) Vital Signs: Last Vital Signs Pulse 68 07/23/23 11:07 BP 166/78 H 07/23/23 11:07 Pulse Ox 97 07/23/23 11:07 Oxygen Delivery Method Room Air 07/23/23 11:07 BMI result Body Mass Index 35.2 Tobacco/Smoking Status: Tobacco use Status Tobacco use date assessed 07/23/23 07/23/23 11:25 Patient Tobacco Use Status Never used Tobacco 07/23/23 11:25 e-Cigarette/Vaping Use Never Used 07/23/23 11:08 Thrive Assessment: Date of Thrive Assessment Date Thrive assessed 05/22/23 07/23/23 11:08 Const General: no acute distress Eyes General: appearance normal, both eyes and all related structures Resp Effort & Inspection: normal respiratory effort Auscultation: clear to auscultation bilaterally Cardio Rhythm: regular rhythm Heart sounds: S1 normal heart sound present and S2 normal heart sound present GI Inspection: Yes normal to inspection Palpation (GI): Soft to palpation Percussion: Yes normal to percussion Auscultation: normal bowel sounds Assessment and Plan Assessment & Plan (1) CHF (congestive heart failure): Comment: Echo 06/01, nl LVEF, SEVERE DIASTOLIC DYSFUNCTION, SEPTAL ASYMMETRIC HYPERTROPHY, NL VALVES Code(s): I50.9 - Heart failure, unspecified Plan: Continue current medications, follow-up with Cardiology next week (2) Atrial fibrillation with RVR: Comment: Hospitalized at [place] 06/01, cardioverted on BB/Cardizem, bradycardia on BB, started on Amiodarone, takes prn only Code(s): I48.91 - Unspecified atrial fibrillation Plan: Continue current medications and anticoagulation with Eliquis (3) Essential hypertension: Comment: POORLY CONTROLLED DUE TO NONCOMPLIANCE, LISINOPRIL CAUSES COUGH Code(s): I10 - Essential (primary) hypertension Plan: Continue current medications return for fasting blood work next week Orders: Orders Comprehensive [place]. Panel Fast Today I10 - Essential (primary) hypertension, I48.91 - Unspecified atrial fibrillation, I50.9 - Heart failure, unspecified Lipid Panel Today I10 - Essential (primary) hypertension, I48.91 - Unspecified atrial fibrillation, I50.9 - Heart failure, unspecified Complete Blood Count Auto Diff Today I10 - Essential (primary) hypertension, I48.91 - Unspecified atrial fibrillation, I50.9 - Heart failure, unspecified Coding Level of Care Code Est Pt Level 4 (66000) Diagnoses CHF (congestive heart failure) I50.9 Atrial fibrillation with RVR I48.91 Essential hypertension I10
== END 2023-07-23 12:27 | disposition home or self-care (01) ==
PROVIDERS: PCP Internal Medicine; Visit Provider Internal Medicine
DX: I11.0 Hypertensive heart disease with heart failure (principal); I50.9 Heart failure, unspecified; I48.91 Unspecified atrial fibrillation
CPT/HCPCS: 99214

== ENCOUNTER 2023-08-07 09:57 | Outpatient (REF) | payer MEDICARE, SELFPAY ==
[2023-08-07 11:40] LABS: MANUAL DIFF FLAG NO
[2023-08-07 11:46] LABS: Basophils Percent Auto 0.5 % (0-2); Eosinophils Absolute Auto 0.2 X10*3/uL (0.0-0.4); Eosinophils Percent Auto 3.1 % (0-4); Hematocrit 44.1 % (42.0-52.0); Hemoglobin 14.4 g/dl (14.0-18.0); Imm Gran Abs Auto 0.04 X10*3/uL (0.00-0.03); Imm Gran Pct Auto 0.5 % (0.0-0.4); Lymphocytes Absolute Auto 1.3 X10*3/uL (1.2-4.9); Lymphocytes Percent Auto 15.9 % (20-40); Mean Corpuscular HGB Conc 32.7 g/dl (31.0-36.0); Mean Corpuscular Hemoglobin 29.9 pg (27.0-33.0); Mean Corpuscular Volume 91.7 fL (80.0-98.0); Mean Platelet Volume 9.7 fL (9.4-12.4); Monocytes Absolute Auto 0.6 X10*3/uL (0.1-1.2); Monocytes Percent Auto 7.4 % (2-11); Neutrophils Absolute Auto 5.7 x10*3/uL (2.0-8.3); Neutrophils Percent Auto 72.6 % (45-73); Platelet Count 296 X10*3/uL (160-400); Red Blood Count 4.81 X10*6/uL (4.60-5.80); Red Cell Distribution Width 13.1 % (11.0-16.0); White Blood Count 7.9 X10*3/uL (4.8-10.8)
[2023-08-07 12:18] LABS: Alanine Aminotransferase 24 U/L (0-40); Alkaline Phosphatase 68 U/L (39-117); Anion Gap 10 (12-20); Aspartate Amino Transferase 16 U/L (5-37); Bilirubin Total 0.4 mg/dL (0.0-1.0); Blood Urea Nitrogen 22 mg/dL (9-16); Calcium 9.5 mg/dL (8.4-10.2); Carbon Dioxide 27 mmol/L (22-29); Chloride 108 mmol/L (96-108); Cholesterol 219 mg/dL (<200); Estimated Glomerular Filt Rate > 60; Glucose Fasting 105 mg/dL (60-99); HDL Cholesterol 36 mg/dL (>40); LDL Cholesterol Calculated 158 mg/dL (<100); Potassium 4.8 mmol/L (3.3-5.1); Sodium 140 mmol/L (135-145); Total Protein 7.4 g/dL (6.5-8.0); Triglycerides 126 mg/dL (<150)
== END 2023-08-07 09:58 | disposition home or self-care (01) ==
LOC: HO.WFDLDS 09:57
PROVIDERS: Visit Provider Internal Medicine
DX: I50.9 Heart failure, unspecified (principal); I48.91 Unspecified atrial fibrillation; I10 Essential (primary) hypertension
CPT/HCPCS: 36415; 80053; 80061; 85025

== ENCOUNTER 2023-08-17 08:10 | Outpatient (AMB) | payer MEDICARE, SELFPAY ==
[2023-08-17 08:35] VITALS: BP 140/82; PULSE 57; BMI 35.4
--- NOTE | 2023-08-17 08:35 | MHC.OFFVIS ---
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 Gold Leaf Present Allergies lisinopril Adverse Reaction (Intermediate, Verified 08/17/23 08:42) Cough olmesartan Adverse Reaction (Verified 08/17/23 08:42) Headache Medication List - Last Reconciled 08/17/23 by Gwen Dougherty ELIGIBILITY AND OCCUPANCY INTERVIEWER-C amiodarone 200 mg; amlodipine 10 mg PO DAILY apixaban (Eliquis) 5 mg PO BID spironolactone (Aldactone) 25 mg PO DAILY valsartan 160 mg PO DAILY HPI 6 wk f/up HPI Details Edmund is a 72-year-old male with past medical history of hypertension who was recently admitted to [facility] with chest discomfort, noted to have new finding of atrial fibrillation. His troponin was elevated and EKG abnormal. He was transported to [facility] where he underwent cardiac catheterization showing no significant coronary artery disease. Today he reports he has been doing well over the last few months. He denies any concerning symptoms. No chest discomfort at rest or with activity. No heart palpitations, lightheadedness, presyncope, syncope, falls. No shortness of breath, PND, orthopnea or edema. He walks 3-5 miles a few times a week which he tolerates without symptoms. Taking most meds as directed. Light epistaxis reported at times. Has been using saline rinse. Reduced his Eliquis to once daily. Daughter is present. She is assisting with [place] interpretation at his request, permit signed. [facility] Medical History Finger amputee Essential hypertension Surgical History History of amputation of finger of both hands H/O hernia repair Social History Household Members: Children Housing: House Do you presently have visiting nurse or other home services: No Comment: patient refused alarm and camera, states he will call. has urinal at bedsid Patient Tobacco Use Status: Never used Tobacco e-Cigarette/Vaping Use: Never Used service: No Current occupational status: retired Current occupational exposures/hazards: No Cognitive needs: No Hearing needs: No Vision needs: No Review of Systems Const All systems reviewed & are unremarkable except as noted in HPI and below ENT Denies dizziness Card Denies chest pain, Denies chest pain at rest, Denies chest pain with activity, Denies rapid heart rate, Denies pedal edema, Denies edema, Denies leg edema, Denies lightheadedness, Denies palpitations, Denies dyspnea, Denies dyspnea on exertion and Denies orthopnea Resp Denies cough, Denies dyspnea and Denies dyspnea on exertion GI Denies hematochezia and Denies change in stool character Musc Denies abnormal gait, Denies limited range of motion, Denies muscle cramps, Denies muscle weakness, Denies numbness, Denies radiating pain into limb, Denies stiffness and Denies tingling Neuro Denies abnormal gait, Denies dizziness, Denies numbness and Denies tingling Endo Denies palpitations Physical Exam Const General: cooperative, healthy appearing, comfortable and no acute distress Orientation/consciousness: patient oriented x3 Neck Neck: Yes normal visual inspection Resp Effort & Inspection: normal respiratory effort Auscultation: clear to auscultation bilaterally, no crackles, no rales, no rhonchi and no wheezes Cardio Jugular venous distension: no JVD Rate: regular rate Rhythm: regular rhythm Heart sounds: S1 normal heart sound present, S2 normal heart sound present, no murmurs and no rubs Neuro General: patient oriented x3 Extrem General: Yes normal to inspection and No no pedal edema Psych Appearance: grossly normal Mental Status: mental status grossly normal Speech and movement: Normal speech and movement present Office Procedures EKG Details: A, read by me, normal sinus rhythm, no ST and T-wave abnormality in the lateral leads, repolarization abnormality with LVH, QTC 424 milliseconds, rate 57 [id number], Complete Assessment & Plan Assessment & Plan (1) Atrial fibrillation with RVR: Comment: Hospitalized at [place] 06/01, cardioverted on BB/Cardizem, bradycardia on BB, started on Amiodarone, takes prn only Code(s): I48.91 - Unspecified atrial fibrillation Plan: New finding of atrial fibrillation at time of hospital admission 05/21/2023. He was treated with heart rate control and did convert back to sinus rhythm. He was discharged with amiodarone loading dose to be followed by 200 mg daily and Eliquis 5 mg b.i.d. for anticoagulation. A Holter monitor had been done prior to his admission on 05/12/2023 for 3 days showing sinus rhythm, average heart rate 64, frequent SVT, 5.5% of time, occasional PVCs with one 7 beat NSVT. An echocardiogram was done 05/12/2023 showing EF 59%, moderate LVH, grade 3 diastolic dysfunction, normal valves, ascending aorta 4.4 cm. Today he reports he has been feeling well with no concerning shortness of breath or heart palpitations. EKG done today showing sinus bradycardia, ST and T-wave abnormalities suggesting lateral ischemia verses LVH with repolarization abnormality, rate 57, no change from last EKG. Pulse is regular on examination. Will continue amiodarone. Labs done on 06/24/23 showed TSH 3.45. Labs 08/07/23 AST 16, ALT 24. Continue Eliquis. Strict importance of taking it b.i.d. was reviewed. Ongoing use of saline nasal spray. Recommend ENT evaluation if epistaxis is recurrent and persistent problem. Cardiology follow-up in 4 mo sooner if needed (2) Essential hypertension: Comment: POORLY CONTROLLED DUE TO NONCOMPLIANCE, LISINOPRIL CAUSES COUGH Code(s): I10 - Essential (primary) hypertension Plan: Reported history of hypertension, uncontrolled. Aldactone was added last visit. Labs done on 08/07/2023 showed creatinine 1.1, potassium 4.8. Today he reports that home blood pressures are ranging in the 120s to a high of 150 systolic. He continues on valsartan, Aldactone, amlodipine. He also uses Valerian root which helps him relax and he says brings his blood pressure down. Mild elevation at this visit. He states he did take his medications this morning. Reviewed low-salt diet. Blood pressure remains elevated at subsequent office visits then his valsartan dose can be increased. (3) Chest discomfort: Code(s): R07.89 - Other chest pain Plan: Prior reports of chest discomfort. He did undergo a nuclear stress test prior to admission on 05/12/2023 which did show mild inferior lateral ischemia. When hospitalized in May was noted he had elevated troponins and abnormal findings on his EKG. He was transferred to [facility] where he underwent cardiac catheterization on 06/04/2023 showing left main normal, lad, left circumflex and RCA each with minimal luminal irregularities. Chest discomfort is not related to angina. Today he reports No recurrent chest discomfort since his hospital discharge. (4) PAC (premature atrial contraction): Code(s): I49.1 - Atrial premature depolarization Plan: Holter monitor as above showing frequent PACs. He then had atrial fibrillation. He is now on amiodarone. He denies having any heart palpitations (5) S/P cardiac cath: Comment: 06/04/2023, left main normal, lad, left circumflex and RCA each with minimal luminal irregularities Code(s): Z98.890 - Other specified postprocedural states Plan: As above (6) CHF (congestive heart failure): Comment: Echo 06/01, nl LVEF, SEVERE DIASTOLIC DYSFUNCTION, SEPTAL ASYMMETRIC HYPERTROPHY, NL VALVES Code(s): I50.9 - Heart failure, unspecified Plan: Mild heart failure during last hospitalization. His echo prior to admit did show grade 3 diastolic dysfunction. He is is at risk for fluid retention. He does not appear fluid overloaded on examination today. On last visit he had some mild edema in his ankles which was thought to be related to his amlodipine. Aldactone was then added. He has no edema on exam today. Signs and symptoms of heart failure reviewed with him. Plan Time spent on chart review, documentation, interview and assessment Coding Level of Care Code Est Pt Level 4 (17893) Diagnoses Atrial fibrillation with RVR I48.91 Essential hypertension I10 Chest discomfort R07.89 PAC (premature atrial contraction) I49.1 S/P cardiac cath Z98.890 CHF (congestive heart failure) I50.9 CPT Codes EKG - CPT: [id number], Complete ([id number]) Time Spent (min) 28
== END 2023-08-17 08:58 | disposition home or self-care (01) ==
PROVIDERS: PCP Internal Medicine; Visit Provider Nurse Practitioner Family
DX: I48.91 Unspecified atrial fibrillation (principal); I10 Essential (primary) hypertension; R07.89 Other chest pain; I49.1 Atrial premature depolarization; Z98.890 Other specified postprocedural states; I50.9 Heart failure, unspecified
CPT/HCPCS: 93010; 99214

== ENCOUNTER → 2023-08-17 08:10 | Outpatient (BNVA) | payer MEDICARE, SELFPAY | PROVIDERS: PCP Internal Medicine; Visit Provider Nurse Practitioner Family | DX: I48.91 Unspecified atrial fibrillation (principal); I10 Essential (primary) hypertension; I49.1 Atrial premature depolarization; I50.9 Heart failure, unspecified; R07.89 Other chest pain; Z98.890 Other specified postprocedural states | CPT/HCPCS: 93005; 99212 ==

== ENCOUNTER 2023-09-24 08:00 | Outpatient (REF) | payer MEDICARE, SELFPAY ==
[2023-09-24 12:10] LABS: Cholesterol 132 mg/dL (<200); HDL Cholesterol 38 mg/dL (>40); LDL Cholesterol Calculated 82 mg/dL (<100); Triglycerides 62 mg/dL (<150)
== END 2023-09-24 08:01 | disposition home or self-care (01) ==
LOC: HO.WFDLDS 08:00
PROVIDERS: Visit Provider Internal Medicine
DX: E78.5 Hyperlipidemia, unspecified (principal)
CPT/HCPCS: 36415; 80061

== ENCOUNTER 2023-11-23 09:41 | Outpatient (AMB) | payer MEDICARE, SELFPAY ==
[2023-11-23 09:44] VITALS: BP 139/88; PULSE 68; O2SAT 95; BMI 38.4
--- NOTE | 2023-11-23 09:44 | MHC.PC.OV ---
Vital Signs 11/23/23 09:44 Height 5 ft 7 in Weight 245 lb BMI 38.4 BP 139/88 Blood Pressure Location Rt brachial Position Sitting Pulse 68 Pulse Source Pulse Oximeter Pulse Oximetry (%) 95 Oxygen Delivery Method Room Air Intake Visit Reasons: 4 Month follow up Intake Note: Pt is here today for 4 months follow up visit. Allergies lisinopril Adverse Reaction (Intermediate, Verified 11/23/23 09:45) Cough olmesartan Adverse Reaction (Verified 11/23/23 09:45) Headache Medication List - Last Reconciled 11/23/23 by Shaista Courtney MD amiodarone 200 mg; amlodipine 10 mg PO DAILY apixaban (Eliquis) 5 mg PO BID rosuvastatin (Crestor) 20 mg PO DAILY spironolactone 25 mg PO DAILY valsartan 160 mg PO DAILY Tobacco use date assessed: 11/23/23 Fall risk assessment: No Falls in past year Last assessed Fall Risk: 11/23/23 Dental Screening Dental Screen Date: 11/23/23 Did you have a dental visit in the last 12 months?: Yes Did you have a dental problem in the last 6 months where you did not have access to dental care?: No Was dental information given to patient?: Patient has dentist HPI 4 Month follow up HPI Details Pt presents for f/u HTN, A fib, hyperlipid. Pt has been taking Amiodarone only if HR is more than 60 and Eliquis QD. He denies chest pain shortness on breath or palpitations. ON LICENSE OF [facility] Medical History (Updated 11/23/23 @ 10:53 by Shaista Courtney MD) Hyperlipidemia Finger amputee Essential hypertension Surgical History History of amputation of finger of both hands H/O hernia repair Social History Household Members: Children Housing: House Do you presently have visiting nurse or other home services: No Comment: patient refused alarm and camera, states he will call. has urinal at bedsid Patient Tobacco Use Status: Never used Tobacco e-Cigarette/Vaping Use: Never Used service: No Current occupational status: retired Current occupational exposures/hazards: No Cognitive needs: No Hearing needs: No Vision needs: No Questionnaire PHQ-9 Over the last 2 weeks, how often have you been bothered by any of the following problems? 1. Little interest or pleasure in doing things: not at all 2. Feeling down, depressed, or hopeless: not at all 3. Trouble falling or staying asleep, or sleeping too much: not at all 4. Feeling tired or having little energy: not at all 5. Poor appetite or overeating: not at all 6. Feeling bad about yourself - or that you are a failure or have let yourself or your family down: not at all 7. Trouble concentrating on things, such as reading the newspaper or watching television: not at all 8. Moving or speaking so slowly that other people could have noticed. Or the opposite - being so fidgety or restless that you have been moving around a lot more than usual: not at all 9. Thoughts that you would be better off or of hurting yourself in some way: not at all Total score: 0 Depression Screening Interpretation: Negative Depression Screening Done: Yes Source: Developed by Drs. Rick Capone, Kristen Sanchez, Jacky Miller and colleagues, with an educational latrice from [employer]. Thrive Questionnaire Date Thrive assessed: 11/23/23 I am a: Patient What is your living situation today?: I have a steady place to live Within the past 12 months, did the food you bought not last and you didn't have the money to get more?: Never true Within the past 12 months, did you worry whether your food would run out before you got money to buy more?: Never true Do you have trouble paying for medicines?: No Do you have trouble getting transportation to medical appointments?: No Do you have trouble paying your heating and electricity bill?: No Do you have trouble taking care of your child, family member or friend?: No Do you have trouble with day-to-day activities such as bathing, preparing meals, shopping, managing finances, etc.?: No Are you currently unemployed and looking for a job?: No Are you interested in more education?: No Please select the resources that you would like help with: None THRIVE Score: 0 AUDIT C Alcohol Use Questionnaire (AUDIT-C) 1. How often do you have a drink containing alcohol?: Never 3. How often do you have six or more drinks on one occasion?: Never Total Score: 0 Score Reviewed/Action Taken: No JOCELYNE-7 AMB Questionnaire JOCELYNE-7 Date JOCELYNE - 7 assessed: 11/23/23 Feeling nervous, anxious, or on edge: 0 = Not at all Not being able to stop or control worryin = Not at all Worrying too much about different things: 0 = Not at all Trouble relaxin = Not at all Being so restless that it is hard to sit still: 0 = Not at all Becoming easily annoyed or irritable: 0 = Not at all Feeling afraid as if something awful might happen: 0 = Not at all Total JOCELYNE-7 score (0-4 normal; 5-9 mild; 10-14 moderate; 15-21 severe): 0 Source: Developed by Drs. Rick Capone, Kristen Sanchez, Jacky Miller and colleagues, with an educational latrice from [employer]. Review of Systems Const All systems reviewed & are unremarkable except as noted in HPI and below Eyes Reports no additional complaints ENT Reports no additional complaints Card Reports no additional complaints Resp Reports no additional complaints GI Reports no additional complaints Reports no additional complaints Physical exam (Primary Care) Vital Signs: Last Vital Signs Pulse 68 11/23/23 09:44 Pulse Ox 95 11/23/23 09:44 Oxygen Delivery Method Room Air 11/23/23 09:44 BMI result Body Mass Index 38.4 Tobacco/Smoking Status: Tobacco use Status Tobacco use date assessed 11/23/23 11/23/23 09:49 Patient Tobacco Use Status Never used Tobacco 11/23/23 09:49 e-Cigarette/Vaping Use Never Used 11/23/23 09:49 PHQ-9: PHQ-9 Score PHQ-9: Total score 0 11/23/23 09:49 Depression Screening Interpretation: Negative Thrive Assessment: Date of Thrive Assessment Date Thrive assessed 11/23/23 11/23/23 09:49 Const General: no acute distress Neck Neck: Yes supple Resp Effort & Inspection: normal respiratory effort Auscultation: clear to auscultation bilaterally Cardio Rhythm: regular rhythm Heart sounds: S1 normal heart sound present and S2 normal heart sound present GI Inspection: Yes normal to inspection Palpation (GI): Soft to palpation Percussion: Yes normal to percussion Assessment and Plan Assessment & Plan (1) CHF (congestive heart failure): Comment: Echo 06/01, nl LVEF, SEVERE DIASTOLIC DYSFUNCTION, SEPTAL ASYMMETRIC HYPERTROPHY, NL VALVES Code(s): I50.9 - Heart failure, unspecified Plan: Continue current medications, increase valsartan to 320 mg for better blood pressure control (2) Atrial fibrillation with RVR: Comment: Hospitalized at [place] 06/01, cardioverted on BB/Cardizem, bradycardia on BB, started on Amiodarone, Code(s): I48.91 - Unspecified atrial fibrillation Plan: Patient was advised to take Eliquis twice a day because taking it once a day will not prevent him from getting CVA. Patient was advised to take amiodarone daily for rhythm control and 5 day Holter monitor will be obtained (3) S/P cardiac cath: Comment: 06/04/2023, left main normal, lad, left circumflex and RCA each with minimal luminal irregularities Code(s): Z98.890 - Other specified postprocedural states (4) Essential hypertension: Comment: POORLY CONTROLLED DUE TO NONCOMPLIANCE, LISINOPRIL CAUSES COUGH, bradycardia on beta javier and Cardizem Code(s): I10 - Essential (primary) hypertension Plan: Increase valsartan to 320 mg check comprehensive panel in 1 week, continue amlodipine and spironolactone (5) Hyperlipidemia: Code(s): E78.5 - Hyperlipidemia, unspecified Plan: Continue statin Orders: Orders ECG 5 day holter monitor Today Complete Blood Count Auto Diff 1 Week I48.91 - Unspecified atrial fibrillation, I50.9 - Heart failure, unspecified Lipid Panel 1 Week I48.91 - Unspecified atrial fibrillation, I50.9 - Heart failure, unspecified Comprehensive [place]. Panel Fast 1 Week I48.91 - Unspecified atrial fibrillation, I50.9 - Heart failure, unspecified Medications: New valsartan 320 mg PO DAILY 30 tabs 3RF Refilled amiodarone 200 mg; 90 tabs 3RF amlodipine 10 mg PO DAILY 90 tabs 3RF Discontinued valsartan Discontinued Reason: Doctor's Order 160 mg PO DAILY 90 tabs 0RF Coding Level of Care Code Est Pt Level 4 (90935) Diagnoses CHF (congestive heart failure) I50.9 Atrial fibrillation with RVR I48.91 S/P cardiac cath Z98.890 Essential hypertension I10 Hyperlipidemia E78.5
== END 2023-11-23 10:54 | disposition home or self-care (01) ==
PROVIDERS: PCP Internal Medicine; Visit Provider Internal Medicine
DX: I11.0 Hypertensive heart disease with heart failure (principal); I50.9 Heart failure, unspecified; I48.91 Unspecified atrial fibrillation; Z98.890 Other specified postprocedural states; E78.5 Hyperlipidemia, unspecified
CPT/HCPCS: 99214

== ENCOUNTER 2023-12-01 07:54 | Outpatient (REF) | payer MEDICARE, SELFPAY ==
[2023-12-01 11:36] LABS: MANUAL DIFF FLAG NO
[2023-12-01 11:43] LABS: Basophils Percent Auto 0.5 % (0-2); Eosinophils Absolute Auto 0.2 X10*3/uL (0.0-0.4); Eosinophils Percent Auto 2.9 % (0-4); Hematocrit 45.6 % (42.0-52.0); Hemoglobin 14.9 g/dl (14.0-18.0); Imm Gran Abs Auto 0.01 X10*3/uL (0.00-0.03); Imm Gran Pct Auto 0.2 % (0.0-0.4); Lymphocytes Absolute Auto 1.1 X10*3/uL (1.2-4.9); Mean Corpuscular HGB Conc 32.7 g/dl (31.0-36.0); Mean Corpuscular Volume 91.9 fL (80.0-98.0); Mean Platelet Volume 9.9 fL (9.4-12.4); Monocytes Absolute Auto 0.6 X10*3/uL (0.1-1.2); Monocytes Percent Auto 9.1 % (2-11); Neutrophils Absolute Auto 4.4 x10*3/uL (2.0-8.3); Neutrophils Percent Auto 70.3 % (45-73); Platelet Count 229 X10*3/uL (160-400); Red Blood Count 4.96 X10*6/uL (4.60-5.80); Red Cell Distribution Width 13.1 % (11.0-16.0); White Blood Count 6.3 X10*3/uL (4.8-10.8)
[2023-12-01 12:19] LABS: Alanine Aminotransferase 20 U/L (0-40); Albumin Level 4.2 g/dL (3.5-5.0); Alkaline Phosphatase 64 U/L (39-117); Anion Gap 10 (12-20); Aspartate Amino Transferase 17 U/L (5-37); Bilirubin Total 0.6 mg/dL (0.0-1.0); Blood Urea Nitrogen 23 mg/dL (9-16); Carbon Dioxide 27 mmol/L (22-29); Chloride 108 mmol/L (96-108); Cholesterol 237 mg/dL (<200); Estimated Glomerular Filt Rate > 60; Glucose Fasting 96 mg/dL (60-99); HDL Cholesterol 38 mg/dL (>40); LDL Cholesterol Calculated 175 mg/dL (<100); Potassium 4.2 mmol/L (3.3-5.1); Sodium 141 mmol/L (135-145); Total Protein 7.2 g/dL (6.5-8.0); Triglycerides 121 mg/dL (<150)
== END 2023-12-01 07:55 | disposition home or self-care (01) ==
LOC: HO.WFDLDS 07:54
PROVIDERS: Visit Provider Internal Medicine
DX: Z13.89 Encounter for screening for other disorder (principal)
CPT/HCPCS: 36415; 80053; 80061; 85025

== ENCOUNTER → 2023-12-01 08:51 | Outpatient (REF) | payer MEDICARE, SELFPAY ==
--- NOTE | 2023-12-01 08:55 | HM_ITS ---
Conclusion: 1. Patient was monitored for total period of 4 days and 8 hours 2. Baseline was normal sinus rhythm with average heart of 63 beats per minute 3. No significant pauses noted 4. Occasional PACs noted with 16 short runs of SVTs, longest lasting 12 beats with the fastest at 158 beats per minute 5. No patient reported events MTDD
== END ==
LOC: HO.CARD 08:51
PROVIDERS: PCP Internal Medicine; Visit Provider Internal Medicine
DX: I48.91 Unspecified atrial fibrillation (principal); I50.9 Heart failure, unspecified
CPT/HCPCS: 36415; 80053; 80061; 85025; 93242

== ENCOUNTER → 2023-12-01 08:55 | Outpatient (BNV) | payer MEDICARE, SELFPAY | PROVIDERS: PCP Internal Medicine; Visit Provider Internal Medicine Cardiovascular Disease | DX: R00.1 Bradycardia, unspecified (principal) | CPT/HCPCS: 93244 ==

== ENCOUNTER 2023-12-23 09:34 | Outpatient (AMB) | payer MEDICARE, SELFPAY ==
[2023-12-23 10:12] VITALS: BP 120/78; PULSE 100; O2SAT 94; BMI 38.4
--- NOTE | 2023-12-23 10:12 | MHC.PC.OV ---
Vital Signs 12/23/23 10:12 Height 5 ft 7 in Weight 245 lb BMI 38.4 BP 120/78 Blood Pressure Location Lt brachial Position Sitting Pulse 100 Pulse Source Pulse Oximeter Pulse Oximetry (%) 94 Oxygen Delivery Method Room Air Intake Visit Reasons: 1 month f/u Intake Note: Pt is here today for 1 month follow up visit. Allergies lisinopril Adverse Reaction (Intermediate, Verified 12/23/23 10:25) Cough olmesartan Adverse Reaction (Verified 12/23/23 10:25) Headache Medication List - Last Reconciled 12/23/23 by Shaista Courtney MD amiodarone 200 mg PO DAILY amlodipine 10 mg PO DAILY apixaban (Eliquis) 5 mg PO BID metoprolol tartrate 25 mg PO BID rosuvastatin (Crestor) 20 mg PO DAILY spironolactone 25 mg PO DAILY valsartan 320 mg PO DAILY Tobacco use date assessed: 11/23/23 Dental Screening Dental Screen Date: 11/23/23 HPI 1 month f/u HPI Details Patient presents for the follow-up of hypertension hyperlipidemia paroxysmal AFib. He is stopped taking Crestor because there was concern about damaging his liver. He had some increased bloating on medication but denies abdominal pain nausea vomiting change in bowel habits. [facility] Medical History Hyperlipidemia Finger amputee Essential hypertension Surgical History History of amputation of finger of both hands H/O hernia repair Social History Household Members: Children Housing: House Do you presently have visiting nurse or other home services: No Comment: patient refused alarm and camera, states he will call. has urinal at bedsid Patient Tobacco Use Status: Never used Tobacco e-Cigarette/Vaping Use: Never Used service: No Current occupational status: retired Current occupational exposures/hazards: No Cognitive needs: No Hearing needs: No Vision needs: No Questionnaire Thrive Questionnaire Date Thrive assessed: 11/23/23 JOCELYNE-7 AMB Questionnaire JOCELYNE-7 Date JOCELYNE - 7 assessed: 11/23/23 Source: Developed by Drs. Rick Capone, Kristen Sanchez, Jacky Miller and colleagues, with an educational latrice from [employer]. Review of Systems Const All systems reviewed & are unremarkable except as noted in HPI and below Reports no additional complaints Eyes Reports no additional complaints ENT Reports no additional complaints Card Reports no additional complaints Resp Reports no additional complaints GI Reports no additional complaints Physical exam (Primary Care) Vital Signs: Last Vital Signs Pulse 100 12/23/23 10:12 BP 120/78 12/23/23 10:12 Pulse Ox 94 12/23/23 10:12 Oxygen Delivery Method Room Air 12/23/23 10:12 BMI result Body Mass Index 38.4 Tobacco/Smoking Status: Tobacco use Status Tobacco use date assessed 11/23/23 12/23/23 10:12 Patient Tobacco Use Status Never used Tobacco 12/23/23 10:12 e-Cigarette/Vaping Use Never Used 12/23/23 10:12 Thrive Assessment: Date of Thrive Assessment Date Thrive assessed 11/23/23 12/23/23 10:12 Const General: no acute distress HENMT Head: Yes normal to inspection Eyes General: appearance normal, both eyes and all related structures Neck Neck: Yes no lymphadenopathy and Yes supple Resp Effort & Inspection: normal respiratory effort Auscultation: clear to auscultation bilaterally Cardio Rate: tachycardic Rhythm: abnormal rhythm irregularly irregular Heart sounds: S1 normal heart sound present and S2 normal heart sound present GI Inspection: Yes normal to inspection Palpation (GI): Soft to palpation Assessment and Plan Assessment & Plan (1) PAC (premature atrial contraction): Code(s): I49.1 - Atrial premature depolarization (2) Atrial fibrillation with RVR: Comment: Hospitalized at [place] 06/01, cardioverted on BB/Cardizem, bradycardia on BB, started on Amiodarone, Code(s): I48.91 - Unspecified atrial fibrillation Plan: Patient initially presented with AFib with rapid ventricular rate at 125/ min mildly symptomatic feeling palpitations only, no chest pain or shortness of breath. Patient has spontaneously converted within an hour in the office. Repeated EKG showed sinus bradycardia at 52 with chronic T-wave inversions in 1 aVL , V5 and 6. Patient will continue current medications and follow-up in 1 month. The findings were discussed with patient's motor teacher who agreed with the plan (3) Hyperlipidemia: Code(s): E78.5 - Hyperlipidemia, unspecified Plan: Patient was advised to restart statin (4) Essential hypertension: Comment: POORLY CONTROLLED DUE TO NONCOMPLIANCE, LISINOPRIL CAUSES COUGH, bradycardia on beta javier and Cardizem Code(s): I10 - Essential (primary) hypertension Plan: Continue current medications including amlodipine valsartan and spironolactone Orders: Orders ECG 12 lead EKG 12/24/23 I48.91 - Unspecified atrial fibrillation, I49.1 - Atrial premature depolarization Magnesium 1 Month E78.5 - Hyperlipidemia, unspecified, I10 - Essential (primary) hypertension, I48.91 - Unspecified atrial fibrillation AMB EKG-In Office Today I48.91 - Unspecified atrial fibrillation, I50.9 - Heart failure, unspecified TSH reflex Free T4 1 Month E78.5 - Hyperlipidemia, unspecified, I10 - Essential (primary) hypertension, I48.91 - Unspecified atrial fibrillation Comprehensive [place]. Panel Fast 1 Month E78.5 - Hyperlipidemia, unspecified, I10 - Essential (primary) hypertension, I48.91 - Unspecified atrial fibrillation Lipid Panel 1 Month E78.5 - Hyperlipidemia, unspecified, I10 - Essential (primary) hypertension, I48.91 - Unspecified atrial fibrillation Complete Blood Count Auto Diff 1 Month E78.5 - Hyperlipidemia, unspecified, I10 - Essential (primary) hypertension, I48.91 - Unspecified atrial fibrillation Coding Level of Care Code Est Pt Level 5 (32320) Diagnoses PAC (premature atrial contraction) I49.1 Atrial fibrillation with RVR I48.91 Hyperlipidemia E78.5 Essential hypertension I10
== END 2023-12-23 12:32 | disposition home or self-care (01) ==
PROVIDERS: PCP Internal Medicine; Visit Provider Internal Medicine
DX: I49.1 Atrial premature depolarization (principal); I48.91 Unspecified atrial fibrillation; E78.5 Hyperlipidemia, unspecified; I10 Essential (primary) hypertension
CPT/HCPCS: 93000; 99215

== ENCOUNTER 2024-02-08 14:09 | Outpatient (AMB) | payer MEDICARE, SELFPAY ==
[2024-02-08 14:26] VITALS: BP 138/84; PULSE 77; O2SAT 95; BMI 38.8
--- NOTE | 2024-02-08 14:26 | A.OFFPC_ITS ---
Vital Signs 02/08/24 14:26 Height 5 ft 7 in Weight 248 lb BMI 38.8 BP 138/84 Blood Pressure Location Lt brachial Position Sitting Pulse 77 Pulse Source Pulse Oximeter Pulse Oximetry (%) 95 Oxygen Delivery Method Room Air Intake Visit Reasons: 1M F/U per FRANTZ Intake Note: Pt is here today for 1 month follow up visit. Allergies lisinopril Adverse Reaction (Intermediate, Verified 02/08/24 14:27) Cough olmesartan Adverse Reaction (Verified 02/08/24 14:27) Headache Medication List - Last Reconciled 02/08/24 by Shaista Courtney MD amiodarone 200 mg PO DAILY amlodipine 10 mg PO DAILY apixaban (Eliquis) 5 mg PO BID rosuvastatin (Crestor) 20 mg PO DAILY spironolactone 25 mg PO DAILY valsartan 320 mg PO DAILY Tobacco use date assessed: 02/08/24 Dental Screening Dental Screen Date: 11/23/23 HPI 1M F/U per FRANTZ HPI Details Pt presents for follow-up on hypertension hyperlipidemia paroxysmal AFib stable on current medications. [facility] Medical History Hyperlipidemia Finger amputee Essential hypertension Surgical History History of amputation of finger of both hands H/O hernia repair Social History Household Members: Children Housing: House Do you presently have visiting nurse or other home services: No Comment: patient refused alarm and camera, states he will call. has urinal at bedsid Patient Tobacco Use Status: Never used Tobacco e-Cigarette/Vaping Use: Never Used service: No Current occupational status: retired Current occupational exposures/hazards: No Cognitive needs: No Hearing needs: No Vision needs: No Questionnaire Thrive Questionnaire Date Thrive assessed: 11/23/23 JOCELYNE-7 AMB Questionnaire JOCELYNE-7 Date JOCELYNE - 7 assessed: 11/23/23 Source: Developed by Drs. Rcik Capone, Kristen Sanchez, Jacky Miller and colleagues, with an educational latrice from [employer]. Review of Systems Const All systems reviewed & are unremarkable except as noted in HPI and below Eyes Reports no additional complaints ENT Reports no additional complaints Card Reports no additional complaints Resp Reports no additional complaints GI Reports no additional complaints Reports no additional complaints Physical exam (Primary Care) Vital Signs: Last Vital Signs Pulse 77 02/08/24 14:26 BP 138/84 02/08/24 14:26 Pulse Ox 95 02/08/24 14:26 Oxygen Delivery Method Room Air 02/08/24 14:26 BMI result Body Mass Index 38.8 Tobacco/Smoking Status: Tobacco use Status Tobacco use date assessed 02/08/24 02/08/24 14:31 Patient Tobacco Use Status Never used Tobacco 02/08/24 14:31 e-Cigarette/Vaping Use Never Used 02/08/24 14:31 Thrive Assessment: Date of Thrive Assessment Date Thrive assessed 11/23/23 02/08/24 14:31 Const General: no acute distress HENMT Head: Yes normal to inspection Eyes General: appearance normal, both eyes and all related structures Resp Effort & Inspection: normal respiratory effort Auscultation: clear to auscultation bilaterally Cardio Rhythm: regular rhythm Heart sounds: S1 normal heart sound present and S2 normal heart sound present GI Inspection: Yes normal to inspection Palpation (GI): Soft to palpation Percussion: Yes normal to percussion Auscultation: normal bowel sounds Assessment and Plan Assessment & Plan (1) Essential hypertension: Comment: POORLY CONTROLLED DUE TO NONCOMPLIANCE, LISINOPRIL CAUSES COUGH, bradycardia on beta javier and Cardizem Code(s): I10 - Essential (primary) hypertension Plan: Continue current medications increase physical activity weight loss discussed with the patient follow-up in 2 months (2) Hyperlipidemia: Code(s): E78.5 - Hyperlipidemia, unspecified Plan: Continue statin check lipid profile tomorrow (3) Atrial fibrillation with RVR: Comment: Hospitalized at [place] 06/01, cardioverted on BB/Cardizem, bradycardia on BB, started on Amiodarone, Code(s): I48.91 - Unspecified atrial fibrillation Plan: Continue amiodarone and Eliquis for anticoagulation (4) CHF (congestive heart failure): Comment: Echo 06/01, nl LVEF, SEVERE DIASTOLIC DYSFUNCTION, SEPTAL ASYMMETRIC HYPERTROPHY, NL VALVES Code(s): I50.9 - Heart failure, unspecified Plan: Continue current medications Orders: Orders Complete Blood Count Auto Diff Today E78.5 - Hyperlipidemia, unspecified, I10 - Essential (primary) hypertension, I48.91 - Unspecified atrial fibrillation, I50.9 - Heart failure, unspecified TSH reflex Free T4 Today E78.5 - Hyperlipidemia, unspecified, I10 - Essential (primary) hypertension, I48.91 - Unspecified atrial fibrillation, I50.9 - Heart failure, unspecified Comprehensive [place]. Panel Fast Today E78.5 - Hyperlipidemia, unspecified, I10 - Essential (primary) hypertension, I48.91 - Unspecified atrial fibrillation, I50.9 - Heart failure, unspecified Lipid Panel Today E78.5 - Hyperlipidemia, unspecified, I10 - Essential (primary) hypertension, I48.91 - Unspecified atrial fibrillation, I50.9 - Heart failure, unspecified Coding Level of Care Code Est Pt Level 4 (43008) Complex EM visit Add On G2211 Diagnoses Essential hypertension I10 Hyperlipidemia E78.5 Atrial fibrillation with RVR I48.91 CHF (congestive heart failure) I50.9
== END 2024-02-08 15:01 | disposition home or self-care (01) ==
PROVIDERS: PCP Internal Medicine; Visit Provider Internal Medicine
DX: I11.0 Hypertensive heart disease with heart failure (principal); E78.5 Hyperlipidemia, unspecified; I48.91 Unspecified atrial fibrillation; I50.9 Heart failure, unspecified
CPT/HCPCS: 99214; G2211

== ENCOUNTER 2024-02-09 08:06 | Outpatient (REF) | payer MEDICARE, SELFPAY ==
[2024-02-09 10:48] LABS: MANUAL DIFF FLAG NO
[2024-02-09 11:21] LABS: Basophils Percent Auto 0.6 % (0-2); Eosinophils Absolute Auto 0.2 X10*3/uL (0.0-0.4); Eosinophils Percent Auto 3.1 % (0-4); Hematocrit 43.3 % (42.0-52.0); Hemoglobin 14.2 g/dl (14.0-18.0); Imm Gran Abs Auto 0.01 X10*3/uL (0.00-0.03); Imm Gran Pct Auto 0.2 % (0.0-0.4); Lymphocytes Absolute Auto 1.1 X10*3/uL (1.2-4.9); Lymphocytes Percent Auto 18.4 % (20-40); Mean Corpuscular HGB Conc 32.8 g/dl (31.0-36.0); Mean Corpuscular Hemoglobin 30.5 pg (27.0-33.0); Mean Corpuscular Volume 92.9 fL (80.0-98.0); Mean Platelet Volume 10.3 fL (9.4-12.4); Monocytes Absolute Auto 0.6 X10*3/uL (0.1-1.2); Monocytes Percent Auto 9.5 % (2-11); Neutrophils Absolute Auto 4.2 x10*3/uL (2.0-8.3); Neutrophils Percent Auto 68.2 % (45-73); Platelet Count 227 X10*3/uL (160-400); Red Blood Count 4.66 X10*6/uL (4.60-5.80); Red Cell Distribution Width 13.4 % (11.0-16.0); White Blood Count 6.2 X10*3/uL (4.8-10.8)
[2024-02-09 11:55] LABS: Alanine Aminotransferase 13 U/L (0-40); Albumin Level 4.2 g/dL (3.5-5.0); Alkaline Phosphatase 64 U/L (39-117); Anion Gap 11 (12-20); Aspartate Amino Transferase 18 U/L (5-37); Bilirubin Total 0.5 mg/dL (0.0-1.0); Blood Urea Nitrogen 26 mg/dL (9-16); Calcium 9.1 mg/dL (8.4-10.2); Carbon Dioxide 24 mmol/L (22-29); Chloride 108 mmol/L (96-108); Cholesterol 196 mg/dL (<200); Estimated Glomerular Filt Rate > 60; Glucose Fasting 106 mg/dL (60-99); HDL Cholesterol 36 mg/dL (>40); LDL Cholesterol Calculated 138 mg/dL (<100); Potassium 4.2 mmol/L (3.3-5.1); Sodium 139 mmol/L (135-145); Total Protein 7.1 g/dL (6.5-8.0); Triglycerides 114 mg/dL (<150)
[2024-02-09 12:14] LABS: TSH reflex Free T4 2.55 uIU/mL (0.32-4.0)
== END 2024-02-09 08:07 | disposition home or self-care (01) ==
LOC: HO.WFDLDS 08:06
PROVIDERS: Visit Provider Internal Medicine
DX: E78.5 Hyperlipidemia, unspecified (principal); I50.9 Heart failure, unspecified; I48.91 Unspecified atrial fibrillation; I10 Essential (primary) hypertension
CPT/HCPCS: 36415; 80053; 80061; 84443; 85025

== ENCOUNTER 2024-04-13 12:19 | Outpatient (AMB) | payer MEDICARE, SELFPAY ==
[2024-04-13 12:36] VITALS: BP 138/82; PULSE 64; O2SAT 95; BMI 38.8
--- NOTE | 2024-04-13 12:36 | MHC.PC.OV ---
Vital Signs 04/13/24 12:36 Height 5 ft 7 in Weight 248 lb BMI 38.8 BP 138/82 Blood Pressure Location Lt brachial Position Sitting Pulse 64 Pulse Source Pulse Oximeter Pulse Oximetry (%) 95 Oxygen Delivery Method Room Air Intake Visit Reasons: 2 month follow up Intake Note: Pt is here today for 2 months follow up visit. Allergies lisinopril Adverse Reaction (Intermediate, Verified 04/13/24 12:38) Cough olmesartan Adverse Reaction (Verified 04/13/24 12:38) Headache Medication List - Last Reconciled 04/13/24 by Shaista Courtney MD amiodarone 200 mg PO DAILY amlodipine 10 mg PO DAILY apixaban (Eliquis) 5 mg PO BID rosuvastatin (Crestor) 20 mg PO DAILY triamterene-hydrochlorothiazid 37.5-25 mg 1 tab PO DAILY valsartan 320 mg PO DAILY Tobacco use date assessed: 02/08/24 Fall risk assessment: No Falls in past year Last assessed Fall Risk: 04/13/24 Dental Screening Dental Screen Date: 11/23/23 HPI 2 month follow up HPI Details Patient presents for the follow-up on hypertension hyperlipidemia paroxysmal AFib [facility] Medical History Hyperlipidemia Finger amputee Essential hypertension Surgical History History of amputation of finger of both hands H/O hernia repair Social History Household Members: Children Housing: House Do you presently have visiting nurse or other home services: No Comment: patient refused alarm and camera, states he will call. has urinal at bedsid Patient Tobacco Use Status: Never used Tobacco e-Cigarette/Vaping Use: Never Used service: No Current occupational status: retired Current occupational exposures/hazards: No Cognitive needs: No Hearing needs: No Vision needs: No Questionnaire Thrive Questionnaire Date Thrive assessed: 11/23/23 JOCELYNE-7 AMB Questionnaire JOCELYNE-7 Date JOCELYNE - 7 assessed: 11/23/23 Source: Developed by Drs. Rick Capone, Kristen Sanchez, Jacky Miller and colleagues, with an educational latrice from [employer]. Review of Systems Const All systems reviewed & are unremarkable except as noted in HPI and below Eyes Reports no additional complaints ENT Reports no additional complaints Card Reports no additional complaints Resp Reports no additional complaints GI Reports no additional complaints Reports no additional complaints Physical exam (Primary Care) Vital Signs: Last Vital Signs Pulse 64 04/13/24 12:36 BP 138/82 04/13/24 12:36 Pulse Ox 95 04/13/24 12:36 Oxygen Delivery Method Room Air 04/13/24 12:36 BMI result Body Mass Index 38.8 Tobacco/Smoking Status: Tobacco use Status Tobacco use date assessed 02/08/24 04/13/24 12:36 Patient Tobacco Use Status Never used Tobacco 04/13/24 12:36 e-Cigarette/Vaping Use Never Used 04/13/24 12:36 Thrive Assessment: Date of Thrive Assessment Date Thrive assessed 11/23/23 04/13/24 12:36 Const General: no acute distress HENMT Face and sinus: Yes normal facial exam Resp Effort & Inspection: normal respiratory effort Auscultation: clear to auscultation bilaterally Cardio Rhythm: regular rhythm Heart sounds: S1 normal heart sound present and S2 normal heart sound present GI Inspection: Yes normal to inspection Extrem Other: 1+ pitting edema b/l Assessment and Plan Assessment & Plan (1) CHF (congestive heart failure): Comment: Echo 06/01, nl LVEF, SEVERE DIASTOLIC DYSFUNCTION, SEPTAL ASYMMETRIC HYPERTROPHY, NL VALVES Code(s): I50.9 - Heart failure, unspecified Plan: Continue current medications (2) Hyperlipidemia: Comment: Patient takes Crestor only every other day because of lightheadedness Code(s): E78.5 - Hyperlipidemia, unspecified Plan: Patient was advised to add Zetia to Crestor but he declined. He will continue low-cholesterol diet try to lose 20 lb (3) Atrial fibrillation with RVR: Comment: Hospitalized at [place] 06/01, cardioverted on BB/Cardizem, bradycardia on BB, started on Amiodarone, Code(s): I48.91 - Unspecified atrial fibrillation Plan: Controlled on amiodarone and anticoagulated on Eliquis Orders: Orders Basic Metabolic Panel 2 Weeks I50.9 - Heart failure, unspecified Lipid Panel 2 Months E78.5 - Hyperlipidemia, unspecified, I48.91 - Unspecified atrial fibrillation, I50.9 - Heart failure, unspecified Comprehensive [place]. Panel Fast 2 Months E78.5 - Hyperlipidemia, unspecified, I48.91 - Unspecified atrial fibrillation, I50.9 - Heart failure, unspecified Medications: New triamterene-hydrochlorothiazid 37.5-25 mg 1 tab PO DAILY 90 tabs 3RF Discontinued spironolactone Discontinued Reason: Doctor's Order 25 mg PO DAILY 30 tabs 5RF Coding Level of Care Code Est Pt Level 4 (12979) Diagnoses CHF (congestive heart failure) I50.9 Hyperlipidemia E78.5 Atrial fibrillation with RVR I48.91
== END 2024-04-13 13:20 | disposition home or self-care (01) ==
PROVIDERS: PCP Internal Medicine; Visit Provider Internal Medicine
DX: I50.9 Heart failure, unspecified (principal); E78.5 Hyperlipidemia, unspecified; I48.91 Unspecified atrial fibrillation
CPT/HCPCS: 99214

== ENCOUNTER 2024-04-27 08:08 | Outpatient (REF) | payer MEDICARE, SELFPAY ==
[2024-04-27 12:39] LABS: Alanine Aminotransferase 22 U/L (0-40); Albumin Level 4.2 g/dL (3.5-5.0); Alkaline Phosphatase 59 U/L (39-117); Anion Gap 13 (12-20); Aspartate Amino Transferase 17 U/L (5-37); Bilirubin Total 0.6 mg/dL (0.0-1.0); Blood Urea Nitrogen 21 mg/dL (9-16); Calcium 9.8 mg/dL (8.4-10.2); Carbon Dioxide 26 mmol/L (22-29); Chloride 106 mmol/L (96-108); Cholesterol 219 mg/dL (<200); Estimated Glomerular Filt Rate 57; Glucose Fasting 100 mg/dL (60-99); HDL Cholesterol 35 mg/dL (>40); Potassium 4.7 mmol/L (3.3-5.1); Sodium 140 mmol/L (135-145); Total Protein 7.3 g/dL (6.5-8.0)
[2024-04-27 12:48] LABS: LDL Cholesterol Calculated 149 mg/dL (<100); Triglycerides 176 mg/dL (<150)
== END 2024-04-27 08:09 | disposition home or self-care (01) ==
LOC: HO.WFDLDS 08:08
PROVIDERS: Visit Provider Internal Medicine
DX: I50.9 Heart failure, unspecified (principal); E78.5 Hyperlipidemia, unspecified; I48.91 Unspecified atrial fibrillation
CPT/HCPCS: 36415; 80053; 80061

== ENCOUNTER 2024-06-13 13:25 | Outpatient (AMB) | payer MEDICARE, SELFPAY ==
[2024-06-13 14:07] VITALS: BP 138/82; PULSE 72; O2SAT 95; BMI 36.6
--- NOTE | 2024-06-13 14:07 | MHC.PC.OV ---
Vital Signs 06/13/24 14:07 Height 5 ft 7 in Weight 234 lb BMI 36.6 BP 138/82 Blood Pressure Location Lt brachial Position Sitting Pulse 72 Pulse Source Pulse Oximeter Pulse Oximetry (%) 95 Oxygen Delivery Method Room Air Intake Visit Reasons: 2 month follow up Intake Note: Pt is here today for 2 months follow up visit. Allergies lisinopril Adverse Reaction (Intermediate, Verified 06/13/24 14:13) Cough olmesartan Adverse Reaction (Verified 06/13/24 14:13) Headache Medication List - Last Reconciled 06/13/24 by Shaista Courtney MD amiodarone 200 mg PO DAILY amlodipine 10 mg PO DAILY apixaban (Eliquis) 5 mg PO BID rosuvastatin 20 mg PO DAILY triamterene-hydrochlorothiazid 37.5-25 mg 1 tab PO DAILY valsartan 320 mg PO DAILY Tobacco use date assessed: 06/13/24 Dental Screening Dental Screen Date: 11/23/23 HPI 2 month follow up HPI Details Patient presents for the follow-up on hypertension hyperlipidemia paroxysmal AFib. He has not been compliant taking rosuvastatin daily and has been taking amiodarone only half a tablet 3 times a week. He denies palpitations chest pain no shortness a breath [facility] Medical History Hyperlipidemia Finger amputee Essential hypertension Surgical History History of amputation of finger of both hands H/O hernia repair Social History Household Members: Children Housing: House Do you presently have visiting nurse or other home services: No Comment: patient refused alarm and camera, states he will call. has urinal at bedsid Patient Tobacco Use Status: Never used Tobacco e-Cigarette/Vaping Use: Never Used service: No Current occupational status: retired Current occupational exposures/hazards: No Cognitive needs: No Hearing needs: No Vision needs: No Questionnaire Thrive Questionnaire Date Thrive assessed: 11/23/23 JOCELYNE-7 AMB Questionnaire JOCELYNE-7 Date JOCELYNE - 7 assessed: 11/23/23 Source: Developed by Drs. Rick Capone, Kristen Sanchez, Jacky Miller and colleagues, with an educational latrice from [employer]. Review of Systems Const All systems reviewed & are unremarkable except as noted in HPI and below Card Reports no additional complaints Resp Reports no additional complaints GI Reports no additional complaints Physical exam (Primary Care) Vital Signs: Last Vital Signs Pulse 72 06/13/24 14:07 BP 138/82 06/13/24 14:07 Pulse Ox 95 06/13/24 14:07 Oxygen Delivery Method Room Air 06/13/24 14:07 BMI result Body Mass Index 36.6 Tobacco/Smoking Status: Tobacco use Status Tobacco use date assessed 06/13/24 06/13/24 14:13 Patient Tobacco Use Status Never used Tobacco 06/13/24 14:07 e-Cigarette/Vaping Use Never Used 06/13/24 14:07 Thrive Assessment: Date of Thrive Assessment Date Thrive assessed 11/23/23 06/13/24 14:07 Const General: no acute distress HENMT Ears: hearing grossly normal bilaterally Neck Neck: Yes no lymphadenopathy and Yes supple Resp Effort & Inspection: normal respiratory effort Auscultation: clear to auscultation bilaterally Cardio Rhythm: regular rhythm Heart sounds: S1 normal heart sound present and S2 normal heart sound present GI Inspection: Yes normal to inspection Palpation (GI): Soft to palpation Coding Level of Care Code Est Pt Level 4 (19291) Diagnoses Hyperlipidemia E78.5 CHF (congestive heart failure) I50.9 Atrial fibrillation with RVR I48.91 Assessment & Plan Assessment & Plan (1) Hyperlipidemia: Comment: Patient takes Crestor only every other day because of lightheadedness Code(s): E78.5 - Hyperlipidemia, unspecified Category: Medical Plan: Medication compliance discussed with the patient. Follow-up in 1 month with a fasting labs before (2) CHF (congestive heart failure): Comment: Echo 06/01, nl LVEF, SEVERE DIASTOLIC DYSFUNCTION, SEPTAL ASYMMETRIC HYPERTROPHY, NL VALVES Code(s): I50.9 - Heart failure, unspecified Category: Medical Plan: Continue current medications medication compliance for hypertension treatment discussed with the patient. (3) Atrial fibrillation with RVR: Comment: Hospitalized at [place] 06/01, cardioverted on BB/Cardizem, bradycardia on BB, started on Amiodarone, Code(s): I48.91 - Unspecified atrial fibrillation Category: Medical Plan: Anticoagulated on Eliquis and rhythm controlled on amiodarone Orders: Orders Lipid Panel 1 Month E78.5 - Hyperlipidemia, unspecified Comprehensive [place]. Panel Fast 1 Month E78.5 - Hyperlipidemia, unspecified Medications: Refilled valsartan 320 mg PO DAILY 90 tabs 3RF amlodipine 10 mg PO DAILY 90 tabs 3RF apixaban (Eliquis) 5 mg PO BID 180 tabs 3RF rosuvastatin 20 mg PO DAILY 90 tabs 3RF triamterene-hydrochlorothiazid 37.5-25 mg 1 tab PO DAILY 90 tabs 3RF
== END 2024-06-13 15:13 | disposition home or self-care (01) ==
LOC: HO.HMCC 13:35
PROVIDERS: PCP Internal Medicine; Visit Provider Internal Medicine
DX: E78.5 Hyperlipidemia, unspecified (principal); I50.9 Heart failure, unspecified; I48.91 Unspecified atrial fibrillation

== ENCOUNTER → 2024-06-13 13:25 | Outpatient (BNVA) | payer MEDICARE, SELFPAY | PROVIDERS: PCP Internal Medicine; Visit Provider Internal Medicine | DX: E78.5 Hyperlipidemia, unspecified (principal); I50.9 Heart failure, unspecified; I48.91 Unspecified atrial fibrillation | CPT/HCPCS: 99212 ==

== ENCOUNTER 2024-07-20 09:11 | Outpatient (REF) | payer MEDICARE, SELFPAY ==
[2024-07-20 11:46] LABS: Alanine Aminotransferase 37 U/L (0-40); Albumin Level 4.2 g/dL (3.5-5.0); Alkaline Phosphatase 66 U/L (39-117); Anion Gap 10 (12-20); Aspartate Amino Transferase 31 U/L (5-37); Bilirubin Total 0.7 mg/dL (0.0-1.0); Blood Urea Nitrogen 24 mg/dL (9-16); Calcium 9.9 mg/dL (8.4-10.2); Carbon Dioxide 29 mmol/L (22-29); Chloride 106 mmol/L (96-108); Cholesterol 133 mg/dL (<200); Estimated Glomerular Filt Rate > 60; Glucose Fasting 111 mg/dL (60-99); Glucose Random 110 mg/dL (60-115); HDL Cholesterol 35 mg/dL (>40); LDL Cholesterol Calculated 69 mg/dL (<100); Potassium 4.6 mmol/L (3.3-5.1); Sodium 140 mmol/L (135-145); Total Protein 7.3 g/dL (6.5-8.0); Triglycerides 148 mg/dL (<150)
== END 2024-07-20 09:12 | disposition home or self-care (01) ==
LOC: HO.WFDLDS 09:11
PROVIDERS: Visit Provider Internal Medicine
DX: I50.9 Heart failure, unspecified (principal); E78.5 Hyperlipidemia, unspecified
CPT/HCPCS: 36415; 80048; 80053; 80061

== ENCOUNTER 2024-07-26 10:09 | Outpatient (AMB) | payer MEDICARE, SELFPAY ==
[2024-07-26 10:47] VITALS: BP 138/82; PULSE 78; O2SAT 98; BMI 37.0
--- NOTE | 2024-07-26 10:47 | MHC.PC.OV ---
Vital Signs 07/26/24 10:47 Height 5 ft 7 in Weight 236 lb BMI 37.0 BP 138/82 Blood Pressure Location Lt brachial Position Sitting Pulse 78 Pulse Source Pulse Oximeter Pulse Oximetry (%) 98 Oxygen Delivery Method Room Air Intake Visit Reasons: 1m follow up - see comments Intake Note: Pt is here today for 1 month follow up visit on HTN. Allergies lisinopril Adverse Reaction (Intermediate, Verified 07/26/24 10:54) Cough olmesartan Adverse Reaction (Verified 07/26/24 10:54) Headache Medication List - Last Reconciled 07/26/24 by Shaista Courtney MD amiodarone 200 mg PO DAILY amlodipine 10 mg PO DAILY apixaban (Eliquis) 5 mg PO BID rosuvastatin 20 mg PO DAILY triamterene-hydrochlorothiazid 37.5-25 mg 1 tab PO DAILY valsartan 320 mg PO DAILY Tobacco use date assessed: 07/26/24 Dental Screening Dental Screen Date: 11/23/23 HPI 1m follow up - see comments HPI Details Patient presents for the follow-up of hypertension hyperlipidemia paroxysmal AFib stable on current medications. [facility] Medical History Hyperlipidemia Finger amputee Essential hypertension Surgical History History of amputation of finger of both hands H/O hernia repair Social History Household Members: Children Housing: House Do you presently have visiting nurse or other home services: No Comment: patient refused alarm and camera, states he will call. has urinal at bedsid Patient Tobacco Use Status: Never used Tobacco e-Cigarette/Vaping Use: Never Used service: No Current occupational status: retired Current occupational exposures/hazards: No Cognitive needs: No Hearing needs: No Vision needs: No Questionnaire Thrive Questionnaire Date Thrive assessed: 11/23/23 JOCELYNE-7 AMB Questionnaire JOCELYNE-7 Date JOCELYNE - 7 assessed: 11/23/23 Source: Developed by Drs. Rick Capone, Kristen Sanchez, Jacky Miller and colleagues, with an educational latrice from [employer]. Review of Systems Const All systems reviewed & are unremarkable except as noted in HPI and below Eyes Reports no additional complaints ENT Reports no additional complaints Card Reports no additional complaints Resp Reports no additional complaints GI Reports no additional complaints Reports no additional complaints Physical exam (Primary Care) Vital Signs: Last Vital Signs Pulse 78 07/26/24 10:47 BP 138/82 07/26/24 10:47 Pulse Ox 98 07/26/24 10:47 Oxygen Delivery Method Room Air 07/26/24 10:47 BMI result Body Mass Index 37.0 Tobacco/Smoking Status: Tobacco use Status Tobacco use date assessed 07/26/24 07/26/24 10:54 Patient Tobacco Use Status Never used Tobacco 07/26/24 10:47 e-Cigarette/Vaping Use Never Used 07/26/24 10:47 Thrive Assessment: Date of Thrive Assessment Date Thrive assessed 11/23/23 07/26/24 10:47 Const General: no acute distress HENMT Mouth: Normal oral and palatal mucosa present Resp Effort & Inspection: normal respiratory effort Auscultation: clear to auscultation bilaterally Cardio Rhythm: regular rhythm Heart sounds: S1 normal heart sound present and S2 normal heart sound present GI Inspection: Yes normal to inspection Palpation (GI): Soft to palpation Percussion: Yes normal to percussion Auscultation: normal bowel sounds Coding Level of Care Code Est Pt Level 4 (33734) Diagnoses Essential hypertension I10 Hyperlipidemia E78.5 Atrial fibrillation with RVR I48.91 CHF (congestive heart failure) I50.9 Assessment & Plan Assessment & Plan (1) Essential hypertension: Comment: POORLY CONTROLLED DUE TO NONCOMPLIANCE, LISINOPRIL CAUSES COUGH, bradycardia on beta javier and Cardizem Code(s): I10 - Essential (primary) hypertension Category: Medical Plan: Continue current medications low-sodium diet increase physical activity and weight loss discussed with the patient. (2) Hyperlipidemia: Comment: Patient takes Crestor only every other day because of lightheadedness Code(s): E78.5 - Hyperlipidemia, unspecified Category: Medical Plan: Continue Crestor (3) Atrial fibrillation with RVR: Comment: Hospitalized at [place] 06/01, cardioverted on BB/Cardizem, bradycardia on BB, started on Amiodarone, Code(s): I48.91 - Unspecified atrial fibrillation Category: Medical Plan: Continue current medications (4) CHF (congestive heart failure): Comment: Echo 06/01, nl LVEF, SEVERE DIASTOLIC DYSFUNCTION, SEPTAL ASYMMETRIC HYPERTROPHY, NL VALVES Code(s): I50.9 - Heart failure, unspecified Category: Medical Plan: Continue current medications repeat echo next year Orders: Orders Lipid Panel 3 Months E78.5 - Hyperlipidemia, unspecified, I10 - Essential (primary) hypertension, I48.91 - Unspecified atrial fibrillation, I50.9 - Heart failure, unspecified Hemoglobin A1c 3 Months E78.5 - Hyperlipidemia, unspecified, I10 - Essential (primary) hypertension, I48.91 - Unspecified atrial fibrillation, I50.9 - Heart failure, unspecified Comprehensive [place]. Panel Fast 3 Months E78.5 - Hyperlipidemia, unspecified, I10 - Essential (primary) hypertension, I48.91 - Unspecified atrial fibrillation, I50.9 - Heart failure, unspecified Complete Blood Count Auto Diff 3 Months E78.5 - Hyperlipidemia, unspecified, I10 - Essential (primary) hypertension, I48.91 - Unspecified atrial fibrillation, I50.9 - Heart failure, unspecified
== END 2024-07-26 11:30 | disposition home or self-care (01) ==
PROVIDERS: PCP Internal Medicine; Visit Provider Internal Medicine
DX: I10 Essential (primary) hypertension (principal); E78.5 Hyperlipidemia, unspecified; I48.91 Unspecified atrial fibrillation; I50.9 Heart failure, unspecified

== ENCOUNTER → 2024-07-26 10:09 | Outpatient (BNVA) | payer MEDICARE, SELFPAY | PROVIDERS: PCP Internal Medicine; Visit Provider Internal Medicine | DX: E78.5 Hyperlipidemia, unspecified (principal); I48.91 Unspecified atrial fibrillation; I11.0 Hypertensive heart disease with heart failure; I50.9 Heart failure, unspecified | CPT/HCPCS: 99212 ==

== ENCOUNTER 2024-10-29 08:20 | Outpatient (REF) | payer MEDICARE, SELFPAY ==
[2024-10-29 08:35] LABS: MANUAL DIFF FLAG NO
[2024-10-29 09:22] LABS: Basophils Percent Auto 0.5 % (0-2); Eosinophils Absolute Auto 0.2 X10*3/uL (0.0-0.4); Eosinophils Percent Auto 2.8 % (0-4); Hematocrit 46.4 % (42.0-52.0); Hemoglobin 15.2 g/dl (14.0-18.0); Imm Gran Abs Auto 0.02 X10*3/uL (0.00-0.03); Imm Gran Pct Auto 0.3 % (0.0-0.4); Lymphocytes Absolute Auto 1.2 X10*3/uL (1.2-4.9); Lymphocytes Percent Auto 19.2 % (20-40); Mean Corpuscular HGB Conc 32.8 g/dl (31.0-36.0); Mean Corpuscular Hemoglobin 28.8 pg (27.0-33.0); Mean Platelet Volume 9.6 fL (9.4-12.4); Monocytes Absolute Auto 0.6 X10*3/uL (0.1-1.2); Neutrophils Absolute Auto 4.3 x10*3/uL (2.0-8.3); Neutrophils Percent Auto 68.2 % (45-73); Platelet Count 257 X10*3/uL (160-400); Red Blood Count 5.27 X10*6/uL (4.60-5.80); Red Cell Distribution Width 13.5 % (11.0-16.0); White Blood Count 6.4 X10*3/uL (4.8-10.8)
[2024-10-29 09:26] LABS: Estimated Average Glucose 123 mg/dL; Hemoglobin A1c % 5.9 % (<6.0)
[2024-10-29 09:48] LABS: Alanine Aminotransferase 20 U/L (0-40); Albumin Level 4.2 g/dL (3.5-5.0); Alkaline Phosphatase 62 U/L (39-117); Anion Gap 9 (12-20); Aspartate Amino Transferase 20 U/L (5-37); Bilirubin Total 0.7 mg/dL (0.0-1.0); Blood Urea Nitrogen 16 mg/dL (9-16); Calcium 9.4 mg/dL (8.4-10.2); Carbon Dioxide 24 mmol/L (22-29); Chloride 109 mmol/L (96-108); Cholesterol 152 mg/dL (<200); Estimated Glomerular Filt Rate > 60; Glucose Fasting 100 mg/dL (60-99); HDL Cholesterol 37 mg/dL (>40); LDL Cholesterol Calculated 92 mg/dL (<100); Potassium 4.3 mmol/L (3.3-5.1); Sodium 138 mmol/L (135-145); Total Protein 7.6 g/dL (6.5-8.0); Triglycerides 117 mg/dL (<150)
== END 2024-10-29 08:21 | disposition home or self-care (01) ==
LOC: HO.LAB 08:20
PROVIDERS: PCP Internal Medicine; Visit Provider Internal Medicine
DX: E78.5 Hyperlipidemia, unspecified (principal); I10 Essential (primary) hypertension; I48.91 Unspecified atrial fibrillation; I50.9 Heart failure, unspecified; Z13.1 Encounter for screening for diabetes mellitus
CPT/HCPCS: 36415; 80053; 80061; 83036; 85025

== ENCOUNTER 2024-11-01 09:48 | Outpatient (AMB) | payer MEDICARE, SELFPAY ==
[2024-11-01 09:49] VITALS: BP 126/68; PULSE 66; RESP 18; TEMP 36.7; O2SAT 96; BMI 37.1
--- NOTE | 2024-11-01 09:49 | MHC.PC.OV ---
Vital Signs 11/01/24 09:49 Height 5 ft 7 in Weight 237 lb BMI 37.1 BP 126/68 Blood Pressure Location Rt brachial Position Sitting Respiration 18 Pulse 66 Pulse Source Pulse Oximeter Temp 98.1 F Temp Source Oral Pulse Oximetry (%) 96 Oxygen Delivery Method Room Air Intake Visit Reasons: 1m follow up - see comments Intake Note: Pt is here today for 1 month follow up visit on HTN. Allergies lisinopril Adverse Reaction (Intermediate, Verified 11/01/24 09:51) Cough olmesartan Adverse Reaction (Verified 11/01/24 09:51) Headache Medication List - Last Reconciled 11/01/24 by Shaista Courtney MD amiodarone 200 mg PO DAILY amlodipine 10 mg PO DAILY apixaban (Eliquis) 5 mg PO BID rosuvastatin 20 mg PO .qhs triamterene-hydrochlorothiazid 37.5-25 mg 1 tab PO DAILY valsartan 320 mg PO .qhs Tobacco use date assessed: 11/01/24 Fall risk assessment: No Falls in past year Last assessed Fall Risk: 11/01/24 Dental Screening Dental Screen Date: 11/01/24 Did you have a dental visit in the last 12 months?: No Did you have a dental problem in the last 6 months where you did not have access to dental care?: No Was dental information given to patient?: Patient declined HPI 1m follow up - see comments HPI Details Patient presents for the follow-up on hypertension hyperlipidemia paroxysmal AFib. He reports no taking medications regularly because of lower blood pressure readings at home. Patient denies chest pain headaches lightheadedness. [facility] Medical History Hyperlipidemia Finger amputee Essential hypertension Surgical History History of amputation of finger of both hands H/O hernia repair Social History Household Members: Children Housing: House Do you presently have visiting nurse or other home services: No Comment: patient refused alarm and camera, states he will call. has urinal at bedsid Patient Tobacco Use Status: Never used Tobacco e-Cigarette/Vaping Use: Never Used service: No Current occupational status: retired Current occupational exposures/hazards: No Cognitive needs: No Hearing needs: No Vision needs: No Questionnaire Thrive Questionnaire Date Thrive assessed: 11/23/23 AUDIT C Alcohol Use Questionnaire (AUDIT-C) 1. How often do you have a drink containing alcohol?: Never 3. How often do you have six or more drinks on one occasion?: Never Total Score: 0 JOCELYNE-7 AMB Questionnaire JOCELYNE-7 Date JOCELYNE - 7 assessed: 11/23/23 Source: Developed by Drs. Rick Capone, Kristen Sanchez, Jacky Miller and colleagues, with an educational latrice from [employer]. Review of Systems Const All systems reviewed & are unremarkable except as noted in HPI and below Eyes Reports no additional complaints ENT Reports no additional complaints Card Reports no additional complaints Resp Reports no additional complaints GI Reports no additional complaints Reports no additional complaints Musc Reports no additional complaints Physical exam (Primary Care) Vital Signs: Last Vital Signs Temp 98.1 F 11/01/24 09:49 Pulse 66 11/01/24 09:49 Resp 18 11/01/24 09:49 BP 126/68 11/01/24 09:49 Pulse Ox 96 11/01/24 09:49 Oxygen Delivery Method Room Air 11/01/24 09:49 BMI result Body Mass Index 37.1 Tobacco/Smoking Status: Tobacco use Status Tobacco use date assessed 11/01/24 11/01/24 09:54 Patient Tobacco Use Status Never used Tobacco 11/01/24 09:54 e-Cigarette/Vaping Use Never Used 11/01/24 09:54 Thrive Assessment: Date of Thrive Assessment Date Thrive assessed 11/23/23 11/01/24 09:54 Const General: no acute distress HENMT Ears: hearing grossly normal bilaterally Throat: Yes posterior oropharynx normal Neck Neck: Yes supple Resp Effort & Inspection: normal respiratory effort Auscultation: clear to auscultation bilaterally Cardio Rhythm: regular rhythm Heart sounds: S1 normal heart sound present and S2 normal heart sound present Coding Level of Care Code Est Pt Level 3 (11774) Diagnoses Atrial fibrillation with RVR I48.91 CHF (congestive heart failure) I50.9 Assessment & Plan Assessment & Plan (1) Atrial fibrillation with RVR: Comment: Hospitalized at [place] 06/01, cardioverted on BB/Cardizem, bradycardia on BB, started on Amiodarone, Code(s): I48.91 - Unspecified atrial fibrillation Category: Medical Plan: Continue amiodarone and Eliquis (2) CHF (congestive heart failure): Comment: Echo 06/01, nl LVEF, SEVERE DIASTOLIC DYSFUNCTION, SEPTAL ASYMMETRIC HYPERTROPHY, NL VALVES Code(s): I50.9 - Heart failure, unspecified Category: Medical Plan: Medications compliance discussed with the patient. Obtain echocardiogram and follow-up in 1 month Orders: Orders CA echo transthoracic complete Today I48.91 - Unspecified atrial fibrillation, I50.9 - Heart failure, unspecified Medications: Changed From valsartan 320 mg PO DAILY 90 tabs 3RF To valsartan 320 mg PO .qhs 90 tabs 3RF From rosuvastatin 20 mg PO DAILY 90 tabs 3RF To rosuvastatin 20 mg PO .qhs 90 tabs 3RF
== END 2024-11-01 10:28 | disposition home or self-care (01) ==
LOC: HO.HMCC 09:48
PROVIDERS: PCP Internal Medicine; Visit Provider Internal Medicine
DX: I48.91 Unspecified atrial fibrillation (principal); I50.9 Heart failure, unspecified

== ENCOUNTER → 2024-11-01 09:48 | Outpatient (BNVA) | payer MEDICARE, SELFPAY | PROVIDERS: PCP Internal Medicine; Visit Provider Internal Medicine | DX: I48.91 Unspecified atrial fibrillation (principal); I11.0 Hypertensive heart disease with heart failure; I50.9 Heart failure, unspecified; E78.5 Hyperlipidemia, unspecified | CPT/HCPCS: 99212 ==

== ENCOUNTER → 2024-11-18 07:43 | Outpatient (REF) | payer MEDICARE, SELFPAY ==
--- NOTE | 2024-11-18 07:46 | ECG_ITS ---
Test Reason : I48.91 Blood Pressure : */* mmHG Vent. Rate : 70 BPM Atrial Rate : 70 BPM P-R Int : 162 ms QRS Dur : 110 ms QT Int : 402 ms P-R-T Axes : 45 -10 152 degrees QTcB Int : 434 ms Normal sinus rhythm Left ventricular hypertrophy with repolarization abnormality ( R in aVL , Billy product ) Abnormal ECG When compared with ECG of 21-May-2023 10:19, Premature atrial complexes are no longer Present Referred By: Shaista Courtney Electronically Signed By: Timothy Pink
--- NOTE | 2024-11-18 07:46 | CA_ITS ---
Transthoracic Echocardiogram Patient (Last, First, Middle): Edmund Valentin, Gender: Male Date of : 1950 Age: 73 Procedure Date: 11/18/2024 Procedure Type: Transthoracic Echocardiogram Location: OP Height: 172. cm Weight: 107.05 kg BSA: 2.19 m2 Heart Rate: 66 bpm BP: 185 / 90 mmHg Hiv Nurse: KULDEEP Referring MD: Shaista Courtney MD Symptoms: I50.9 - Heart failure, unspecified Study Quality: Adequate ECG Rhythm: Frequent atrial premature beats Conclusions: - Normal left ventricular cavity size. There is normal left ventricular wall thickness. The left ventricular systolic function is hyperdynamic. The visually estimated ejection fraction is >70%. - E/E prime ratio is between 8 and 15 consistent with indeterminate filling pressures. - The basal inferior segment is akinetic. - Normal right ventricular cavity size and systolic function. - Low right atrial pressure. - There is mild dilatation of the sinuses of Valsalva measuring 4.40 cm, mild dilatation of the ascending aorta measuring 4.20 cm, and mild dilatation of the aortic arch measuring 4.00 cm. - The inferior vena cava is collapsed, consistent with reduced intravascular volume. Findings Left Ventricle Normal left ventricular cavity size. There is normal left ventricular wall thickness. The left ventricular systolic function is hyperdynamic. The visually estimated ejection fraction is >70%. There is evidence of regional wall motion abnormalities. Abnormal diastolic function is noted. Spectral Doppler is indicative of an impaired relaxation filling pattern. E/E prime ratio is between 8 and 15 consistent with indeterminate filling pressures. Wall Motion Rest Echo Findings The basal inferior segment is akinetic. Right Ventricle Normal right ventricular cavity size and systolic function. Atria The left atrium is severely dilated. The right atrium is normal in size. Aortic Valve There is a normal trileaflet aortic valve. There is no aortic valve stenosis. There is no aortic valve regurgitation. Mitral Valve The mitral valve appears normal. There is no mitral valve regurgitation. There is no mitral valve stenosis. Pulmonic Valve The pulmonic valve is likely normal. Tricuspid Valve Normal tricuspid valve structure. There is no tricuspid valve regurgitation. Tricuspid regurgitation envelope is inadequate for calculation of right ventricular systolic pressure. Low right atrial pressure. Great Vessels There is mild dilatation of the sinuses of Valsalva measuring 4.40 cm, mild dilatation of the ascending aorta measuring 4.20 cm, and mild dilatation of the aortic arch measuring 4.00 cm. Venous The inferior vena cava is collapsed, consistent with reduced intravascular volume. Pericardium/Pleural There is no evidence of pericardial effusion. Prior Study Comparison Changes noted compared to prior study dated: 05/12/2023. Hyperdynamic LV, basal inferior akinesis and low RA pressure. Measurements 2D Linear Measurements IVSd: 1.18 0.6-0.9/0.6-1.0 cm LVIDd: 5.88 3.9-5.3/4.2-5.9 cm LVIDd Index: 2.68 2.4-3.2/2.2-3.1 cm/m2 LVIDs: 3.70 2.0-3.6 cm LVPWd: 1.20 0.7-1.1 cm LA Diam: 4.30 2.7-3.8/3.0-4.0 cm LAIDs Index: 1.96 1.5-2.3 cm/m2 LV Mass: 374.67 67-162/88-224 g LV Mass Index: 171.08 43-95/49-115 g/m2 LVOT Diam: 2.20 3.0+(-)1.3 cm 2D Systolic Function EF 4C: 65.90 >55% EF 2C: 61.70 >55% EF BiP: 64.90 >55% Mitral Valve MV Pk E: 0.76 MV PK A: 0.88 MV Decel Time: 368.00 E/A: 0.90 E'Lateral: 5.55 E'Medial: 5.33 E/E' Med: 14.30 E/E' Lat: 13.70 PHT: 108.00 MVA PHT: 2.04 Decel Pershing: 2.07 Aortic Valve AoV Pk Warren: 1.59 AoV Mn Warren: 1.17 AoV VTI: 0.34 AoV Pk Grad: 10.00 Aov Mn Grad: 6.00 SAIRA Cont.VTI: 2.87 LVOT LVOT Pk Warren: 1.26 LVOT Mn Warren: 0.84 LVOT VTI: 0.26 LVOT Pk Grad: 6.00 LVOT Mn Grad: 3.00 LVOT Diam: 2.20 LVOT Area: 3.80 Diastolic Function MV Pk E: 0.76 MV Pk A: 0.88 E/A: 0.90 E'Medial: 5.33 E/E' Med: 14.30 E' Laterial: 5.55 E/E' Lat: 13.70 Right Ventricle TAPSE (mm): 15.90 TVS' Warren: 10.00 Tricuspid Valve RA Press: 3.00 Great Vessels Aorta Sinus of Valsalva: 4.40 2.0-3.5 cm Ao Asc: 4.20 2.1-3.4 cm Ao Arch: 4.00 Pulmonary Valve PV Pk Warren: 1.07 Peak PV Grad: 5.00 Updated in Other Vendor System with Status of Final Timothy Pink MD electronically signed on 11/20/2024 6:44:56 PM with status of Final
== END ==
LOC: HO.CARD 07:43
PROVIDERS: PCP Internal Medicine; Visit Provider Internal Medicine
DX: I50.9 Heart failure, unspecified (principal); I48.91 Unspecified atrial fibrillation; I49.1 Atrial premature depolarization
CPT/HCPCS: 93005; 93306

== ENCOUNTER → 2024-11-18 07:46 | Outpatient (BNV) | payer MEDICARE, SELFPAY | PROVIDERS: PCP Internal Medicine; Visit Provider Internal Medicine Cardiovascular Disease | DX: I51.7 Cardiomegaly (principal) | CPT/HCPCS: 93010 ==

== ENCOUNTER 2024-12-05 09:41 | Outpatient (AMB) | payer MEDICARE, SELFPAY ==
[2024-12-05 10:20] VITALS: BP 156/78; PULSE 69; RESP 20; O2SAT 96; BMI 37.0
--- NOTE | 2024-12-05 10:20 | A.OFFPC_ITS ---
Vital Signs 12/05/24 10:20 12/05/24 11:22 Height 5 ft 7 in Weight 236 lb BMI 37.0 BP 156/78 H 138/80 Blood Pressure Location Rt brachial Rt brachial Position Sitting Sitting Respiration 20 Pulse 69 Pulse Source Pulse Oximeter Pulse Oximetry (%) 96 Oxygen Delivery Method Room Air Intake Visit Reasons: 1 months f/up Intake Note: Pt is here today for 1 month follow up visit. Allergies lisinopril Adverse Reaction (Intermediate, Verified 12/05/24 10:22) Cough olmesartan Adverse Reaction (Verified 12/05/24 10:22) Headache Medication List - Last Reconciled 12/05/24 by Shaista Courtney MD amiodarone 200 mg PO DAILY amlodipine 10 mg PO DAILY apixaban (Eliquis) 5 mg PO BID rosuvastatin 20 mg PO .qhs triamterene-hydrochlorothiazid 37.5-25 mg 1 tab PO DAILY valsartan 320 mg PO .qhs Tobacco use date assessed: 12/05/24 Fall risk assessment: No Falls in past year Last assessed Fall Risk: 12/05/24 Dental Screening Dental Screen Date: 11/01/24 HPI 1 months f/up HPI Details Patient presents for the follow-up of hypertension hyperlipidemia paroxysmal AFib rhythm controlled on amiodarone and anticoagulated on Eliquis. Patient reports checking his blood pressure at home and getting readings between 140-130 systolic. He occasionally misses his medication because he thinks his blood pressure is low. Patient denies headaches chest pain shortness or breath lightheadedness. [facility] Medical History Hyperlipidemia Finger amputee Essential hypertension Surgical History History of amputation of finger of both hands H/O hernia repair Social History Household Members: Children Housing: House Do you presently have visiting nurse or other home services: No Comment: patient refused alarm and camera, states he will call. has urinal at bedsid Patient Tobacco Use Status: Never used Tobacco e-Cigarette/Vaping Use: Never Used service: No Current occupational status: retired Current occupational exposures/hazards: No Cognitive needs: No Hearing needs: No Vision needs: No Questionnaire Thrive Questionnaire Date Thrive assessed: 11/23/23 JOCELYNE-7 AMB Questionnaire JOCELYNE-7 Date JOCELYNE - 7 assessed: 11/23/23 Source: Developed by Drs. Rick Capone, Kristen Sanchez, Jacky Miller and colleagues, with an educational latrice from [employer]. Review of Systems Const All systems reviewed & are unremarkable except as noted in HPI and below Eyes Reports no additional complaints ENT Reports no additional complaints Card Reports no additional complaints Resp Reports no additional complaints GI Reports no additional complaints Reports no additional complaints Physical exam (Primary Care) Vital Signs: Last Vital Signs Pulse 69 12/05/24 10:20 Resp 20 12/05/24 10:20 BP 156/78 H 12/05/24 10:20 Pulse Ox 96 12/05/24 10:20 Oxygen Delivery Method Room Air 12/05/24 10:20 BMI result Body Mass Index 37.0 Tobacco/Smoking Status: Tobacco use Status Tobacco use date assessed 12/05/24 12/05/24 10:24 Patient Tobacco Use Status Never used Tobacco 12/05/24 10:24 e-Cigarette/Vaping Use Never Used 12/05/24 10:24 Thrive Assessment: Date of Thrive Assessment Date Thrive assessed 11/23/23 12/05/24 10:24 Const General: no acute distress HENMT Head: Yes normal to inspection Ears: hearing grossly normal bilaterally Throat: Yes posterior oropharynx normal Neck Neck: Yes supple Resp Effort & Inspection: normal respiratory effort Auscultation: clear to auscultation bilaterally Cardio Rhythm: regular rhythm Heart sounds: S1 normal heart sound present and S2 normal heart sound present Coding Level of Care Code Est Pt Level 4 (83117) Diagnoses Uncontrolled hypertension I10 Hyperlipidemia E78.5 Atrial fibrillation with RVR I48.91 Assessment & Plan Assessment & Plan (1) Uncontrolled hypertension: Code(s): I10 - Essential (primary) hypertension Category: Medical Plan: For poorly controlled hypertension due to patient's noncompliance and possibly fluctuating blood pressure he will be referred to postal transportation clerk for 24 hour blood pressure monitoring (2) Hyperlipidemia: Comment: Patient takes Crestor only every other day because of lightheadedness Code(s): E78.5 - Hyperlipidemia, unspecified Category: Medical Plan: Continue statin (3) Atrial fibrillation with RVR: Comment: Hospitalized at [place] 06/01, cardioverted on BB/Cardizem, bradycardia on BB, started on Amiodarone, Code(s): I48.91 - Unspecified atrial fibrillation Category: Medical Plan: Continue current medications Orders: Orders Comprehensive [place]. Panel Fast 2 Months E78.5 - Hyperlipidemia, unspecified, I10 - Essential (primary) hypertension, I48.91 - Unspecified atrial fibrillation, R73.9 - Hyperglycemia, unspecified Complete Blood Count Auto Diff 2 Months E78.5 - Hyperlipidemia, unspecified, I10 - Essential (primary) hypertension, I48.91 - Unspecified atrial fibrillation, R73.9 - Hyperglycemia, unspecified Lipid Panel 2 Months E78.5 - Hyperlipidemia, unspecified, I10 - Essential (primary) hypertension, I48.91 - Unspecified atrial fibrillation, R73.9 - Hyperglycemia, unspecified Hemoglobin A1c 2 Months E78.5 - Hyperlipidemia, unspecified, I10 - Essential (primary) hypertension, I48.91 - Unspecified atrial fibrillation, R73.9 - Hyperglycemia, unspecified Referrals Nephrology Referral I10 - Essential (primary) hypertension
[2024-12-05 11:22] VITALS: BP 138/80
== END 2024-12-05 11:07 | disposition home or self-care (01) ==
LOC: HO.HMCC 09:41
PROVIDERS: PCP Internal Medicine; Visit Provider Internal Medicine
DX: I10 Essential (primary) hypertension (principal); E78.5 Hyperlipidemia, unspecified; I48.91 Unspecified atrial fibrillation

== ENCOUNTER → 2024-12-05 09:41 | Outpatient (BNVA) | payer MEDICARE, SELFPAY | PROVIDERS: PCP Internal Medicine; Visit Provider Internal Medicine | DX: I10 Essential (primary) hypertension (principal); E78.5 Hyperlipidemia, unspecified; I48.91 Unspecified atrial fibrillation | CPT/HCPCS: 99212 ==

== ENCOUNTER 2024-12-29 08:31 | Outpatient (AMB) | payer MEDICARE, SELFPAY ==
[2024-12-29 09:20] VITALS: BP 196/90; PULSE 89; O2SAT 93; BMI 37.9
--- NOTE | 2024-12-29 09:20 | HO.NEPHOV_ITS ---
Vital Signs 12/29/24 09:20 Height 5 ft 7 in Weight 242 lb BMI 37.9 BP 196/90 H Blood Pressure Location Lt brachial Position Sitting Pulse 89 Pulse Source Pulse Oximeter Pulse Oximetry (%) 93 Oxygen Delivery Method Room Air Intake Visit Reasons: INP: Essential (primary) Htn/ LVM Aged Or Disabled Care Worker Required: No Accompanied by: Self / Same As Patient Allergies lisinopril Adverse Reaction (Intermediate, Verified 12/29/24 09:22) Cough olmesartan Adverse Reaction (Verified 12/29/24 09:22) Headache HPI Comments Details: 74 years old gentleman with PMH of HTN, atril fibrillation on amlodipine, valsartan 320, triamterene-HCTZ is referred for fluctuating blood pressures from primary care physician. 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 takes pills at 11AM; blood pressures at home are usually around 130s and 140s systolic Does not take apixaban everyday due to epistaxis PFSH Medical History Hyperlipidemia Finger amputee Essential hypertension Surgical History History of amputation of finger of both hands H/O hernia repair Social History Household Members: Children Housing: House Do you presently have visiting nurse or other home services: No Comment: patient refused alarm and camera, states he will call. has urinal at bedsid Patient Tobacco Use Status: Never used Tobacco e-Cigarette/Vaping Use: Never Used service: No Current occupational status: retired Current occupational exposures/hazards: No Cognitive needs: No Hearing needs: No Vision needs: No Review of Systems Const Denies body aches and Denies chills Eyes Denies exophthalmos, Denies change in vision and Denies decreased night vision ENT Denies bleeding gums and Denies change in voice Card Denies chest pain at rest and Denies diaphoresis Resp Denies cough and Denies hemoptysis GI Denies melena and Denies bloating Denies change in libido Musc Denies abnormal gait Neuro Denies Abnormal speech present and Denies abnormal gait Psych Denies change in libido Endo Denies change in libido and Denies cold intolerance Physical Exam Vital Signs: Last Vital Signs Pulse 89 12/29/24 09:20 BP 196/90 H 12/29/24 09:20 Pulse Ox 93 12/29/24 09:20 Oxygen Delivery Method Room Air 12/29/24 09:20 BMI result Body Mass Index 37.9 General: not in any acute distress, sitting comfortably on the chair Nutritional Appearance: well nourished and obese Eyes: appearance normal, both eyes and all related structures; Alignment and Position: alignment normal and position normal Neck: No lymphadenopathy, no thyromegaly Resp: bilateral air entry equal, no added sounds present Cardio: Regular rate, regular rhythm; Heart sounds: S1 normal heart sound present and S2 normal heart sound present GI: soft, nontender, no guarding, no hepatosplenomegaly : bladder normal to inspection, bladder normal to palpation, no renal angle tenderness Skin: no rashes or lesions noted and elasticity normal Neuro: oriented to person, oriented to place, oriented to time and moves all extremities Neuro Speech: No Abnormal speech present Results Reviewed Nephrology Results: Hgb 15.2 g/dl (14.0-18.0) 10/29/24 WBC 6.4 X10*3/uL (4.8-10.8) 10/29/24 Plt Count 257 X10*3/uL (160-400) 10/29/24 Sodium 138 mmol/L (135-145) 10/29/24 Potassium 4.3 mmol/L (3.3-5.1) 10/29/24 Chloride 109 mmol/L (96-108) H 10/29/24 Carbon Dioxide 24 mmol/L (22-29) 10/29/24 BUN 16 mg/dL (9-16) 10/29/24 Creatinine 0.81 mg/dL (0.5-1.4) 10/29/24 Calcium 9.4 mg/dL (8.4-10.2) 10/29/24 Assessment & Plan Assessment & Plan (1) Essential hypertension: Comment: POORLY CONTROLLED DUE TO NONCOMPLIANCE, LISINOPRIL CAUSES COUGH, bradycardia on beta javier and Cardizem Code(s): I10 - Essential (primary) hypertension Category: Medical Plan: see below (2) S/P cardiac cath: Comment: 06/04/2023, left main normal, LAD, left circumflex and RCA : each with minimal luminal irregularities Code(s): Z98.890 - Other specified postprocedural states Category: Medical Plan: see below (3) Atrial fibrillation with RVR: Comment: Hospitalized at [facility] 06/01, cardioverted on BB/Cardizem, bradycardia on BB, started on Amiodarone, Code(s): I48.91 - Unspecified atrial fibrillation Category: Medical Plan: see below Orders: Orders AMB 24 HR B/P Monitor PLACEMENT Today E78.5 - Hyperlipidemia, unspecified, I10 - Essential (primary) hypertension, I48.91 - Unspecified atrial fibrillation Renin Today I10 - Essential (primary) hypertension Aldost/Renin Today I10 - Essential (primary) hypertension TSH reflex Free T4 Today I10 - Essential (primary) hypertension Scribe Plan - Not visible on output: Hypertension: Unclear etiology, electrolytes and renal function stable On amlodipine 10 mg, valsartan 320 mg, triamterene hydrochlorothiazide taking all the medications in the morning We will get a 24 hour blood pressure monitoring to get accurate understanding of his blood pressures as he says his blood pressures are between 130s and 140s at home whereas in the clinic it is 180/80 mmHg upon rechecking. We will get running, renin aldosterone levels although this may not be accurate given that he is on valsartan, but we will give us an idea if we need to address spironolactone as an additional medication if renin activity is not completely suppressed. Advised to lose weight, weight loss and hypertension education material given to the patient We will see him back in the clinic in a month I will call him with the blood pressure reading and the labs with an updated plan Atrial fibrillation: Rate controlled, currently on amiodarone Taking apixaban twice weekly due to epistaxis Coding Level of Care Code New Pt Level 4 (82643) Diagnoses Essential hypertension I10 S/P cardiac cath Z98.890 Atrial fibrillation with RVR I48.91
== END 2024-12-29 10:08 | disposition home or self-care (01) ==
LOC: HO.HKA 08:32
PROVIDERS: PCP Internal Medicine; Visit Provider Internal Medicine Critical Care Medicine
DX: I10 Essential (primary) hypertension (principal); Z98.890 Other specified postprocedural states; I48.91 Unspecified atrial fibrillation
CPT/HCPCS: 99204

== ENCOUNTER → 2024-12-29 08:31 | Outpatient (BNVA) | payer MEDICARE, SELFPAY | PROVIDERS: PCP Internal Medicine; Visit Provider Internal Medicine Critical Care Medicine | DX: Z13.89 Encounter for screening for other disorder (principal) | CPT/HCPCS: 99202 ==

== ENCOUNTER 2024-12-29 10:40 | Outpatient (REF) | payer MEDICARE, SELFPAY ==
[2024-12-29 14:14] LABS: TSH reflex Free T4 1.54 uIU/mL (0.32-4.0)
[2025-01-04 16:33] LABS: Renin 1.89 ng/mL/h (0.25-5.82)
== END 2024-12-29 10:41 | disposition home or self-care (01) ==
LOC: HO.10HDL 10:40
PROVIDERS: Visit Provider Internal Medicine Critical Care Medicine
DX: I10 Essential (primary) hypertension (principal); I48.91 Unspecified atrial fibrillation; Z98.890 Other specified postprocedural states
CPT/HCPCS: 36415; 82088; 84244; 84443; 99202

== ENCOUNTER → 2024-12-30 09:55 | Outpatient (BNVA) | payer MEDICARE, SELFPAY | PROVIDERS: PCP Internal Medicine; Visit Provider Internal Medicine Critical Care Medicine | DX: I10 Essential (primary) hypertension (principal); Z45.09 Encounter for adjustment and management of other cardiac device | CPT/HCPCS: 93786; 93788 ==

== ENCOUNTER 2025-01-18 09:41 | Outpatient (AMB) | payer MEDICARE, SELFPAY ==
--- NOTE | 2025-01-18 10:01 | HO.NEPHOV_ITS ---
Vital Signs 01/18/25 10:02 Height 5 ft 7 in Weight 241 lb 4 oz BMI 37.8 BP 158/80 H Blood Pressure Location Lt brachial Position Sitting Pulse 55 Pulse Source Pulse Oximeter Pulse Oximetry (%) 91 L Oxygen Delivery Method Room Air Intake Visit Reasons: 4wk follow-up/ Conf Immigration Case Worker Required: No Accompanied by: Self / Same As Patient Allergies lisinopril Adverse Reaction (Intermediate, Verified 01/18/25 10:02) Cough olmesartan Adverse Reaction (Verified 01/18/25 10:02) Headache HPI Comments Details: 74 years old gentleman with PMH of HTN, atril fibrillation on amlodipine, valsartan 320-HCTZ and carvedilol 25mg BID is here for followup. 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 blood pressures at home are usually around 120s and 140s systolic with dips down to 100mmHg after morning medications Does not take apixaban everyday due to epistaxis PFSH Medical History Hyperlipidemia Finger amputee Essential hypertension Surgical History History of amputation of finger of both hands H/O hernia repair Social History Household Members: Children Housing: House Do you presently have visiting nurse or other home services: No Comment: patient refused alarm and camera, states he will call. has urinal at bedsid Patient Tobacco Use Status: Never used Tobacco e-Cigarette/Vaping Use: Never Used service: No Current occupational status: retired Current occupational exposures/hazards: No Cognitive needs: No Hearing needs: No Vision needs: No Review of Systems Const Details: Const Denies body aches, Denies chills, Denies excessive sweating and Denies fatigue Eyes Denies blurry vision and Denies change in vision ENT Denies bleeding gums and Denies change in voice Card Denies chest pain and Denies leg ulcers Resp Denies cough and Denies excessive phlegm production GI Denies abdominal pain and Denies bloating Denies hematuria, Denies urinary frequency and Denies difficulty voiding Musc Denies abnormal gait Neuro Denies Neuro-related abnormal movements, Denies abnormal gait and Denies behavioral changes Psych Denies behavioral changes and Denies change in appetite Endo Denies change in body appearance, Denies cold intolerance, Denies excessive sweating and Denies fatigue Physical Exam Vital Signs: Last Vital Signs Pulse 55 01/18/25 10:02 BP 158/80 H 01/18/25 10:02 Pulse Ox 91 L 01/18/25 10:02 Oxygen Delivery Method Room Air 01/18/25 10:02 BMI result Body Mass Index 37.8 General: obese, slightly elder gentleman, pleasant, Not in any acute distress, comfortable, sitting on the chair Nutritional Appearance: well nourished and overweight Eyes: appearance normal, both eyes and all related structures; Alignment and Position: alignment normal and position normal Neck: No lymphadenopathy, no thyromegaly Resp: bilateral air entry equal, no added sounds present Cardio: Regular rate, regular rhythm; Heart sounds: S1 normal heart sound present and S2 normal heart sound present, no edema GI: soft, nontender, no guarding, no hepatosplenomegaly : bladder normal to inspection, bladder normal to palpation, no renal angle tenderness Skin: no rashes or lesions noted and elasticity normal Neuro: oriented to person, oriented to place, oriented to time and moves all extremities Results Reviewed Nephrology Results: No Data to Display Assessment & Plan Assessment & Plan (1) Essential hypertension: Comment: POORLY CONTROLLED DUE TO NONCOMPLIANCE, LISINOPRIL CAUSES COUGH, bradycardia on beta javier and Cardizem Code(s): I10 - Essential (primary) hypertension Category: Medical (2) Uncontrolled hypertension: Code(s): I10 - Essential (primary) hypertension Category: Medical (3) Sleep apnea: Code(s): G47.30 - Sleep apnea, unspecified Category: Medical (4) Atrial fibrillation with RVR: Comment: Hospitalized at [facility] 06/01, cardioverted on BB/Cardizem, bradycardia on BB, started on Amiodarone, Code(s): I48.91 - Unspecified atrial fibrillation Category: Medical Plan Hypertension: Possibly obesity and excessive salt intake, electrolytes and renal function stable 24 hr blood pressure monitoring showed his average day BP of 163/95, and 151/88mmHg at night appropriate nighttime drip around 01:00 to 04:00 noted. There was 1 drip off systolic blood pressures down to 123/57mmhg at 20:30 possibly following medication intake. On amlodipine 10 mg, valsartan 320 mg- hydrochlorothiazide and carvedilol BID was added after 24 hr blood pressure monitoring. this morning his blood pressure is 158/80mmHg which is better than before. He states at home his blood pressures are better controlled around 120-140mmHG. And dip down to 100 mm systolic after morning pills. Brought his home blood pressure machine and is cross checked with machine in the clinic both match the readings. Offered him another 24 hour blood pressure monitoring but he declined. renin aldosterone appropriately suppressed but still some more room more aldosterone suppression, will add spironolactone. Advised to lose weight, weight loss and hypertension education material given to the patient need to rule out sleep apnea which might be the cause of resistant hypertension, will get a sleep study done. no symptoms of sleep apnea. non smoker, no family history Gained 30 lbs in the past year, advised him to lose weight and he promised to lose some weight before the next visit, talked to him about DASH diet. Also asked him to stop salt intake. Atrial fibrillation: Rate controlled, currently on amiodarone Taking apixaban twice weekly due to epistaxis Coding Level of Care Code Est Pt Level 4 (54113) Diagnoses Essential hypertension I10 Uncontrolled hypertension I10 Sleep apnea G47.30 Atrial fibrillation with RVR I48.91
[2025-01-18 10:02] VITALS: BP 158/80; PULSE 55; O2SAT 91; BMI 37.8
== END 2025-01-18 10:48 | disposition home or self-care (01) ==
LOC: HO.HKA 09:42
PROVIDERS: PCP Internal Medicine; Visit Provider Internal Medicine Critical Care Medicine
DX: I10 Essential (primary) hypertension (principal); G47.30 Sleep apnea, unspecified; I48.91 Unspecified atrial fibrillation
CPT/HCPCS: 99214

== ENCOUNTER → 2025-01-18 09:41 | Outpatient (BNVA) | payer MEDICARE, SELFPAY | PROVIDERS: PCP Internal Medicine; Visit Provider Internal Medicine Critical Care Medicine | DX: I10 Essential (primary) hypertension (principal); G47.30 Sleep apnea, unspecified; I48.91 Unspecified atrial fibrillation | CPT/HCPCS: 99212 ==

== ENCOUNTER 2025-02-03 09:44 | Outpatient (AMB) | payer MEDICARE, SELFPAY ==
[2025-02-03 10:05] VITALS: BP 138/72; PULSE 54; RESP 18; O2SAT 95; BMI 36.8
--- NOTE | 2025-02-03 10:05 | A.OFFPC_ITS ---
Vital Signs 02/03/25 10:05 Height 5 ft 7 in Weight 235 lb BMI 36.8 BP 138/72 Blood Pressure Location Lt brachial Position Sitting Respiration 18 Pulse 54 Pulse Source Pulse Oximeter Pulse Oximetry (%) 95 Oxygen Delivery Method Room Air Intake Visit Reasons: 2m follow up Intake Note: Pt is here today for 2 months follow up visit. Allergies lisinopril Adverse Reaction (Intermediate, Verified 02/03/25 10:06) Cough olmesartan Adverse Reaction (Verified 02/03/25 10:06) Headache Medication List - Last Reconciled 02/03/25 by Shaista Courtney MD amiodarone 200 mg PO DAILY apixaban (Eliquis) 5 mg PO BID carvedilol 25 mg PO BID rosuvastatin 20 mg PO .qhs valsartan-hydrochlorothiazide 320-25 mg 1 tab PO DAILY Tobacco use date assessed: 02/03/25 Fall risk assessment: No Falls in past year Last assessed Fall Risk: 02/03/25 Dental Screening Dental Screen Date: 11/01/24 HPI 2m follow up HPI Details Patient presents for the follow-up on hypertension hyperlipidemia chronic AFib stable on current medications [facility] Medical History (Updated 02/03/25 @ 15:56 by Shaista Courtney MD) Hyperlipidemia Finger amputee Essential hypertension Surgical History History of amputation of finger of both hands H/O hernia repair Social History Household Members: Children Housing: House Do you presently have visiting nurse or other home services: No Comment: patient refused alarm and camera, states he will call. has urinal at bedsid Patient Tobacco Use Status: Never used Tobacco e-Cigarette/Vaping Use: Never Used service: No Current occupational status: retired Current occupational exposures/hazards: No Cognitive needs: No Hearing needs: No Vision needs: No Questionnaire PHQ-9 Over the last 2 weeks, how often have you been bothered by any of the following problems? 1. Little interest or pleasure in doing things: not at all 2. Feeling down, depressed, or hopeless: not at all 3. Trouble falling or staying asleep, or sleeping too much: not at all 4. Feeling tired or having little energy: not at all 5. Poor appetite or overeating: not at all 6. Feeling bad about yourself - or that you are a failure or have let yourself or your family down: not at all 7. Trouble concentrating on things, such as reading the newspaper or watching television: not at all 8. Moving or speaking so slowly that other people could have noticed. Or the opposite - being so fidgety or restless that you have been moving around a lot more than usual: not at all 9. Thoughts that you would be better off or of hurting yourself in some way: not at all Total score: 0 Depression Screening Interpretation: Negative Depression Screening Done: Yes 37310 - PHQ-9 Billing: Yes Source: Developed by Drs. Rick Capone, Kristen Sanchez, Jacky Miller and colleagues, with an educational latrice from [employer]. Thrive Questionnaire Date Thrive assessed: 02/03/25 I am a: Patient What is your living situation today?: I have a steady place to live Within the past 12 months, did the food you bought not last and you didn't have the money to get more?: Never true Within the past 12 months, did you worry whether your food would run out before you got money to buy more?: Never true Do you have trouble paying for medicines?: No Do you have trouble getting transportation to medical appointments?: No Do you have trouble paying your heating and electricity bill?: No Do you have trouble taking care of your child, family member or friend?: No Do you have trouble with day-to-day activities such as bathing, preparing meals, shopping, managing finances, etc.?: No Are you currently unemployed and looking for a job?: No Are you interested in more education?: No Please select the resources that you would like help with: None Currently or been in a relationship where the following occur: No concerns reported THRIVE Score: 0 JOCELYNE-7 AMB Questionnaire JOCELYNE-7 Date JOCELYNE - 7 assessed: 02/03/25 Feeling nervous, anxious, or on edge: 0 = Not at all Not being able to stop or control worryin = Not at all Worrying too much about different things: 0 = Not at all Trouble relaxin = Not at all Being so restless that it is hard to sit still: 0 = Not at all Becoming easily annoyed or irritable: 0 = Not at all Feeling afraid as if something awful might happen: 0 = Not at all Total JOCELYNE-7 score (0-4 normal; 5-9 mild; 10-14 moderate; 15-21 severe): 0 Source: Developed by Drs. Rick Capone, Kristen Sanchez, Jacky Miller and colleagues, with an educational latrice from [employer]. JOCELYNE-7 Assessment Billing JOCELYNE-7 Assessment Tool: JOCELYNE-7 Assessment 08679 Review of Systems Const All systems reviewed & are unremarkable except as noted in HPI and below Eyes Reports no additional complaints ENT Reports no additional complaints Card Reports no additional complaints Resp Reports no additional complaints GI Reports no additional complaints Reports no additional complaints Physical exam (Primary Care) Vital Signs: Last Vital Signs Pulse 54 02/03/25 10:05 Resp 18 02/03/25 10:05 BP 138/72 02/03/25 10:05 Pulse Ox 95 02/03/25 10:05 Oxygen Delivery Method Room Air 02/03/25 10:05 BMI result Body Mass Index 36.8 Tobacco/Smoking Status: Tobacco use Status Tobacco use date assessed 02/03/25 02/03/25 10:09 Patient Tobacco Use Status Never used Tobacco 02/03/25 10:09 e-Cigarette/Vaping Use Never Used 02/03/25 10:09 PHQ-9: PHQ-9 Score PHQ-9: Total score 0 02/03/25 12:25 Depression Screening Interpretation: Negative Thrive Assessment: Date of Thrive Assessment Date Thrive assessed 02/03/25 02/03/25 10:11 Currently or been in a relationship where the following occur: No concerns reported Const General: no acute distress HENMT Head: Yes normal to inspection Neck Neck: Yes supple Resp Effort & Inspection: normal respiratory effort Auscultation: clear to auscultation bilaterally Cardio Rhythm: regular rhythm Heart sounds: S1 normal heart sound present and S2 normal heart sound present GI Inspection: Yes normal to inspection Palpation (GI): Soft to palpation Percussion: Yes normal to percussion Auscultation: normal bowel sounds Coding Level of Care Code Est Pt Level 4 (40078) Complex EM visit Add On G2211 Diagnoses Essential hypertension I10 Hyperglycemia R73.9 Atrial fibrillation with RVR I48.91 Hyperlipidemia E78.5 Morbid obesity E66.01 Additional Codes JOCELYNE-7 Assessment Billing - JOCELYNE-7 Assessment Tool: JOCELYNE-7 Assessment 24581 ([id number]) PHQ-9 - 65660 - PHQ-9 Billing: Yes ([id number]) Assessment & Plan Assessment & Plan (1) Essential hypertension: Comment: POORLY CONTROLLED DUE TO NONCOMPLIANCE, LISINOPRIL CAUSES COUGH, bradycardia on beta javier and Cardizem, established with Nephrology Code(s): I10 - Essential (primary) hypertension Category: Medical Plan: Follow-up with nephrology (2) Hyperglycemia: Code(s): R73.9 - Hyperglycemia, unspecified Category: Medical Plan: ADA diet increase exercise weight loss discussed with the patient monitor A1c (3) Atrial fibrillation with RVR: Comment: Hospitalized at [facility] 06/01, cardioverted on BB/Cardizem, bradycardia on BB, started on Amiodarone, Code(s): I48.91 - Unspecified atrial fibrillation Category: Medical Plan: Rhythm controlled on amiodarone anticoagulated on Eliquis and established with Cardiology (4) Hyperlipidemia: Comment: Patient takes Crestor only every other day because of lightheadedness Code(s): E78.5 - Hyperlipidemia, unspecified Category: Medical Plan: Continue statin monitor lipid profile (5) Morbid obesity: Code(s): E66.01 - Morbid (severe) obesity due to excess calories Category: Medical Plan: Decreasing caloric intake increasing physical activity and weight loss discussed with the patient. He has been referred for a sleep study by Nephrology Orders: Orders Complete Blood Count Auto Diff 6 Months E78.5 - Hyperlipidemia, unspecified, I10 - Essential (primary) hypertension, R73.9 - Hyperglycemia, unspecified, Z00.00 - Encounter for general adult medical examination without abnormal findings Lipid Panel 6 Months E78.5 - Hyperlipidemia, unspecified, I10 - Essential (primary) hypertension, R73.9 - Hyperglycemia, unspecified, Z00.00 - Encounter for general adult medical examination without abnormal findings Hemoglobin A1c 6 Months E78.5 - Hyperlipidemia, unspecified, I10 - Essential (primary) hypertension Comprehensive [place]. Panel Fast 6 Months E78.5 - Hyperlipidemia, unspecified, I10 - Essential (primary) hypertension, R73.9 - Hyperglycemia, unspecified, Z00.00 - Encounter for general adult medical examination without abnormal findings Medications: Refilled amlodipine 10 mg PO DAILY 90 tabs 3RF
== END 2025-02-03 10:48 | disposition home or self-care (01) ==
LOC: HO.HMCC 09:45
PROVIDERS: PCP Internal Medicine; Visit Provider Internal Medicine
DX: I10 Essential (primary) hypertension (principal); I48.91 Unspecified atrial fibrillation; E66.01 Morbid (severe) obesity due to excess calories; Z68.36 Body mass index [BMI] 36.0-36.9, adult; R73.9 Hyperglycemia, unspecified; E78.5 Hyperlipidemia, unspecified

== ENCOUNTER → 2025-02-03 09:44 | Outpatient (BNVA) | payer MEDICARE, SELFPAY | PROVIDERS: PCP Internal Medicine; Visit Provider Internal Medicine | DX: I10 Essential (primary) hypertension (principal); R73.9 Hyperglycemia, unspecified; I48.91 Unspecified atrial fibrillation; E78.5 Hyperlipidemia, unspecified; E66.01 Morbid (severe) obesity due to excess calories; Z68.36 Body mass index [BMI] 36.0-36.9, adult; Z71.3 Dietary counseling and surveillance | CPT/HCPCS: 96127; 99212 ==

== ENCOUNTER 2025-05-23 09:13 | Outpatient (AMB) | payer MEDICARE, SELFPAY ==
[2025-05-23 09:27] VITALS: BP 170/70; PULSE 57; O2SAT 95; BMI 36.0
--- NOTE | 2025-05-23 09:27 | HO.NEPHOV_ITS ---
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 He had disturbed sleep overnight because his son was awake and had some issues overnight. He worked in the basement last evening with some gases and it because of which he thinks his blood pressures are high. Usually at home his blood pressures are around 130 systolics. Hypertension: on valsartan- HCTZ 300/25, carvedilol 25mg BID; not on any other medications Does not take apixaban everyday due to epistaxis PFSH Medical History (Updated 02/03/25 @ 15:56 by Shaista Courtney MD) Hyperlipidemia Finger amputee Essential hypertension Surgical History History of amputation of finger of both hands H/O hernia repair Social History Household Members: Children Housing: House Do you presently have visiting nurse or other home services: No Comment: patient refused alarm and camera, states he will call. has urinal at bedsid Patient Tobacco Use Status: Never used Tobacco e-Cigarette/Vaping Use: Never Used service: No Current occupational status: retired Current occupational exposures/hazards: No Cognitive needs: No Hearing needs: No Vision needs: No Review of Systems Const Details: Const : no body aches, no chills, no excessive sweating and no fatigue Eyes: no blurry vision and no change in vision ENT: no bleeding gums and no change in voice, no dizziness Card: no chest pain, no shortness of breath, no orthopnea, no PND Resp: no cough, no excessive phlegm production, no SOB GI: no abdominal pain and no nausea, no vomiting : no hematuria, no urinary frequency and no difficulty voiding Musc: no abnormal gait, no bone pain Neuro: no abnormal movements, no weakness, no dizziness, no abnormal gait and no behavioral changes Psych: no behavioral changes and no change in appetite Endo: no change in body appearance, no cold intolerance Physical Exam Vital Signs: Last Vital Signs Pulse 57 05/23/25 09:27 BP 182/80 H 05/23/25 09:27 Pulse Ox 95 05/23/25 09:27 Oxygen Delivery Method Room Air 05/23/25 09:27 BMI result Body Mass Index 36.0 General: not in any acute distress, comfortable, sitting on the chair Nutritional Appearance: well nourished and weight Eyes: normal position, no icterus Neck: No lymphadenopathy, no thyromegaly Resp: bilateral air entry equal, no added sounds present Cardio: normal S1, S2 heard, no murmur heard, no edema GI: soft, nontender, no guarding, no hepatosplenomegaly : bladder normal to inspection, bladder normal to palpation, no renal angle tenderness Skin: no rashes or lesions noted and elasticity normal Neuro: oriented to person, oriented to place, oriented to time and moves all extremities Assessment & Plan Assessment & Plan (1) Essential hypertension: Comment: POORLY CONTROLLED DUE TO NONCOMPLIANCE, LISINOPRIL CAUSES COUGH, bradycardia on beta javier and Cardizem, established with Nephrology Code(s): I10 - Essential (primary) hypertension Category: Medical (2) Atrial fibrillation with RVR: Comment: Hospitalized at [facility] 06/01, cardioverted on BB/Cardizem, bradycardia on BB, started on Amiodarone, Code(s): I48.91 - Unspecified atrial fibrillation Category: Medical (3) Hyperlipidemia: Comment: Patient takes Crestor only every other day because of lightheadedness Code(s): E78.5 - Hyperlipidemia, unspecified Category: Medical (4) CHF (congestive heart failure): Comment: Echo 06/01, nl LVEF, SEVERE DIASTOLIC DYSFUNCTION, SEPTAL ASYMMETRIC HYPERTROPHY, NL VALVES Code(s): I50.9 - Heart failure, unspecified Category: Medical Plan Hypertension: Possibly obesity and excessive salt intake, electrolytes and renal function stable 24 hr blood pressure monitoring showed his average day BP of 163/95, and 151/88mmHg at night appropriate nighttime drip around 01:00 to 04:00 noted. There was 1 drip off systolic blood pressures down to 123/57mmhg at 20:30 possibly following medication intake. On valsartan 320 mg- hydrochlorothiazide and carvedilol BID was added after 24 hr blood pressure monitoring. renin aldosterone appropriately suppressed but still some more room more renin suppression with diuresis. Last night he had disturbed sleep, was awake all night because of which his blood pressures might be higher side this morning. At home his blood pressures are around 130 systolic. His blood pressure monitor has been calibrated in the clinic during the last visit. If the blood pressures persist to be on the higher side next visit we will add calcium channel javier Advised to lose weight, weight loss and hypertension education material given to the patient need to rule out sleep apnea which might be the cause of resistant hypertension, will get a sleep study done. no symptoms of sleep apnea. non smoker, no family history Gained 30 lbs in the past year, advised him to lose weight and he promised to lose some weight before the next visit, talked to him about DASH diet. Also asked him to stop salt intake. Atrial fibrillation: Rate controlled, currently on amiodarone Taking apixaban twice weekly due to epistaxis Coding Level of Care Code Est Pt Level 4 (70984) Diagnoses Essential hypertension I10 Atrial fibrillation with RVR I48.91 Hyperlipidemia E78.5 CHF (congestive heart failure) I50.9
== END 2025-05-23 09:52 | disposition home or self-care (01) ==
LOC: HO.HKA 09:14
PROVIDERS: PCP Internal Medicine; Visit Provider Internal Medicine Critical Care Medicine
DX: I10 Essential (primary) hypertension (principal); I48.91 Unspecified atrial fibrillation; E78.5 Hyperlipidemia, unspecified; I50.9 Heart failure, unspecified
CPT/HCPCS: 99214

== ENCOUNTER → 2025-05-23 09:13 | Outpatient (BNVA) | payer MEDICARE, SELFPAY | PROVIDERS: PCP Internal Medicine; Visit Provider Internal Medicine Critical Care Medicine | DX: I11.0 Hypertensive heart disease with heart failure (principal); I50.9 Heart failure, unspecified; I48.91 Unspecified atrial fibrillation; E78.5 Hyperlipidemia, unspecified; Z79.899 Other long term (current) drug therapy | CPT/HCPCS: 99212 ==

== ENCOUNTER 2025-08-04 08:42 | Outpatient (REF) | payer MEDICARE, SELFPAY ==
[2025-08-04 11:11] LABS: MANUAL DIFF FLAG NO
[2025-08-04 11:12] LABS: Hematocrit 45.8 % (42.0-52.0); Hemoglobin 14.9 g/dl (14.0-18.0); Imm Gran Abs Auto 0.02 X10*3/uL (0.00-0.03); Imm Gran Pct Auto 0.3 % (0.0-0.4); Lymphocytes Absolute Auto 1.1 X10*3/uL (1.2-4.9); Mean Corpuscular HGB Conc 32.5 g/dl (31.0-36.0); Mean Corpuscular Hemoglobin 28.8 pg (27.0-33.0); Mean Corpuscular Volume 88.6 fL (80.0-98.0); NRBC Abs Auto 0.000 X10*3/uL (0.0-0.012); NRBC Pct Auto 0.0 /100WBC (0.0-0.2); Platelet Count 235 X10*3/uL (160-400); Red Blood Count 5.17 X10*6/uL (4.60-5.80); White Blood Count 6.7 X10*3/uL (4.8-10.8)
[2025-08-04 11:21] LABS: Alanine Aminotransferase 20 U/L (0-40); Albumin Level 4.2 g/dL (3.5-5.0); Alkaline Phosphatase 68 U/L (39-117); Anion Gap 11 (12-20); Aspartate Amino Transferase 21 U/L (5-37); Blood Urea Nitrogen 25 mg/dL (9-16); Calcium 9.2 mg/dL (8.4-10.2); Carbon Dioxide 26 mmol/L (22-29); Chloride 108 mmol/L (96-108); Cholesterol 213 mg/dL (<200); Estimated Glomerular Filt Rate > 60; HDL Cholesterol 32 mg/dL (>40); Potassium 4.5 mmol/L (3.3-5.1); Sodium 140 mmol/L (135-145); Total Protein 6.9 g/dL (6.5-8.0); Triglycerides 120 mg/dL (<150)
== END 2025-08-04 08:43 | disposition home or self-care (01) ==
LOC: HO.WFDLDS 08:42
PROVIDERS: Visit Provider Internal Medicine
DX: Z00.00 Encounter for general adult medical examination without abnormal findings (principal); I10 Essential (primary) hypertension; R73.9 Hyperglycemia, unspecified; E78.5 Hyperlipidemia, unspecified
CPT/HCPCS: 36415; 80053; 80061; 83036; 85025

== ENCOUNTER 2025-08-07 09:27 | Outpatient (AMB) | payer MEDICARE, SELFPAY ==
--- NOTE | 2025-08-07 09:34 | A.OFFPC_ITS ---
Vital Signs 08/07/25 09:37 Height 5 ft 7 in Weight 235 lb BMI 36.8 BP 130/72 Blood Pressure Location Lt brachial Position Sitting Respiration 17 Pulse 74 Pulse Source Pulse Oximeter Temp 98.2 F Temp Source Oral Pulse Oximetry (%) 97 Oxygen Delivery Method Room Air Intake Visit Reasons: 6m follow up Intake Note: Pt is here today for 6 months follow up visit. Allergies lisinopril Adverse Reaction (Intermediate, Verified 08/07/25 09:53) Cough amlodipine Adverse Reaction (Verified 08/07/25 10:17) Headache apixaban (From Eliquis) Adverse Reaction (Verified 08/07/25 10:19) Abdominal Pain olmesartan Adverse Reaction (Verified 08/07/25 09:53) Headache Medication List - Last Reconciled 08/07/25 by Shaista Courtney MD amiodarone 200 mg PO DAILY amlodipine 10 mg PO DAILY [id number]-[id number]-ggvhqvzho 10-320-25 mg 1 tab PO DAILY apixaban (Eliquis) 5 mg PO BID carvedilol 25 mg PO BID carvedilol 25 mg PO BID 30 days rosuvastatin 20 mg PO .qhs valsartan-hydrochlorothiazide 320-25 mg 1 tab PO DAILY Tobacco use date assessed: 08/07/25 Fall risk assessment: No Falls in past year Last assessed Fall Risk: 08/07/25 Dental Screening Dental Screen Date: 11/01/24 HPI 6m follow up HPI Details Patient presents for a follow-up on hypertension hyperlipidemia. He has not been taking amlodipine because headaches and head fullness sensation. Patient has been monitoring blood pressure at home with the average readings of 120 over 75. Patient has not been taking amiodarone or Eliquis despite of being aware of increased risk of stroke with paroxysmal AFib. Patient denies recurrent palpitations. He has not been taking rosuvastatin daily. He has been herbal supplements for hyperlipidemia. [facility] Medical History Hyperlipidemia Finger amputee Essential hypertension Surgical History History of amputation of finger of both hands H/O hernia repair Social History Household Members: Children Housing: House Do you presently have visiting nurse or other home services: No Comment: patient refused alarm and camera, states he will call. has urinal at bedsid Patient Tobacco Use Status: Never used Tobacco e-Cigarette/Vaping Use: Never Used service: No Current occupational status: retired Current occupational exposures/hazards: No Cognitive needs: No Hearing needs: No Vision needs: No Questionnaire Thrive Questionnaire Date Thrive assessed: 02/03/25 JOCELYNE-7 AMB Questionnaire JOCELYNE-7 Date JOCELYNE - 7 assessed: 02/03/25 Source: Developed by Drs. Rick Capone, Kristen Sanchez, Jacky Miller and colleagues, with an educational latrice from [employer]. Review of Systems Const All systems reviewed & are unremarkable except as noted in HPI and below ENT Reports no additional complaints Card Reports no additional complaints Resp Reports no additional complaints GI Reports no additional complaints Reports no additional complaints Physical exam (Primary Care) Vital Signs: Last Vital Signs Temp 98.2 F 08/07/25 09:37 Pulse 74 08/07/25 09:37 Resp 17 08/07/25 09:37 BP 130/72 08/07/25 09:37 Pulse Ox 97 08/07/25 09:37 Oxygen Delivery Method Room Air 08/07/25 09:37 BMI result Body Mass Index 36.8 Tobacco/Smoking Status: Tobacco use Status Tobacco use date assessed 08/07/25 08/07/25 09:58 Patient Tobacco Use Status Never used Tobacco 08/07/25 09:34 e-Cigarette/Vaping Use Never Used 08/07/25 09:34 Thrive Assessment: Date of Thrive Assessment Date Thrive assessed 02/03/25 08/07/25 09:34 Const General: no acute distress HENMT Head: Yes normal to inspection Throat: Yes posterior oropharynx normal Neck Neck: Yes supple Resp Effort & Inspection: normal respiratory effort Auscultation: clear to auscultation bilaterally Cardio Rhythm: regular rhythm Heart sounds: S1 normal heart sound present and S2 normal heart sound present GI Inspection: Yes normal to inspection Palpation (GI): Soft to palpation Percussion: Yes normal to percussion Auscultation: normal bowel sounds Coding Level of Care Code Est Pt Level 4 (83490) Diagnoses Essential hypertension I10 Hyperlipidemia E78.5 Hyperglycemia R73.9 Atrial fibrillation with RVR I48.91 Assessment & Plan Assessment & Plan (1) Essential hypertension: Comment: POORLY CONTROLLED DUE TO NONCOMPLIANCE, LISINOPRIL CAUSES COUGH, bradycardia on beta javier and Cardizem, amlodipine cause headache, established with Nephrology Code(s): I10 - Essential (primary) hypertension Category: Medical Plan: Continue valsartan and carvedilol (2) Hyperlipidemia: Comment: Patient takes Crestor only every other day because of lightheadedness Code(s): E78.5 - Hyperlipidemia, unspecified Category: Medical Plan: Patient was advised to restart rosuvastatin (3) Hyperglycemia: Code(s): R73.9 - Hyperglycemia, unspecified Category: Medical Plan: A1c was 6.0. ADA diet increase exercise weight loss discussed with the patient. Follow-up in 6 months with a fasting labs before (4) Atrial fibrillation with RVR: Comment: Hospitalized at [place] 06/01, cardioverted on BB/Cardizem, bradycardia on BB, started on Amiodarone, patient refused to take amiodarone and Eliquis Code(s): I48.91 - Unspecified atrial fibrillation Category: Medical Plan: Follow-up with cardiology. Patient refused to take Eliquis Orders: Orders 2 Comprehensive [place]. Panel Fast 6 Months E78.5 - Hyperlipidemia, unspecified, I10 - Essential (primary) hypertension, R73.9 - Hyperglycemia, unspecified Lipid Panel 6 Months E78.5 - Hyperlipidemia, unspecified, I10 - Essential (primary) hypertension, R73.9 - Hyperglycemia, unspecified Complete Blood Count Auto Diff 6 Months E78.5 - Hyperlipidemia, unspecified, I10 - Essential (primary) hypertension, R73.9 - Hyperglycemia, unspecified UA w Microscopic 6 Months E78.5 - Hyperlipidemia, unspecified, I10 - Essential (primary) hypertension, R73.9 - Hyperglycemia, unspecified Hemoglobin A1c 6 Months R73.9 - Hyperglycemia, unspecified Medications: Discontinued carvedilol must administer with a meal/food Discontinued Reason: Doctor's Order 25 mg PO BID 60 tabs 5RF apixaban (Eliquis) Discontinued Reason: Doctor's Order 5 mg PO BID 180 tabs 3RF kosqigtkui-qhbjymauk-izuflwxht 10-320-25 mg Discontinued Reason: Doctor's Order 1 tab PO DAILY 90 tabs 3RF
[2025-08-07 09:37] VITALS: BP 130/72; PULSE 74; RESP 17; TEMP 36.8; O2SAT 97; BMI 36.8
== END 2025-08-07 10:36 | disposition home or self-care (01) ==
LOC: HO.HMCC 09:27
PROVIDERS: PCP Internal Medicine; Visit Provider Internal Medicine
DX: I10 Essential (primary) hypertension (principal); E78.5 Hyperlipidemia, unspecified; R73.9 Hyperglycemia, unspecified; I48.91 Unspecified atrial fibrillation

== ENCOUNTER → 2025-08-07 09:27 | Outpatient (BNVA) | payer MEDICARE, SELFPAY | PROVIDERS: PCP Internal Medicine; Visit Provider Internal Medicine | DX: I48.0 Paroxysmal atrial fibrillation (principal); I10 Essential (primary) hypertension; E78.5 Hyperlipidemia, unspecified; R73.9 Hyperglycemia, unspecified; Z91.148 Patient's other noncompliance with medication regimen for other reason | CPT/HCPCS: 99212 ==